=== PATIENT | male | born 1960 | race Caucasian/White ===

== ENCOUNTER 2019-01-27 12:30 | Emergency (ER) | payer OTHER, MEDICAID, SELFPAY ==
[2019-01-27 12:47] VITALS: BP 151/89; PULSE 79; RESP 14; TEMP 36.9; O2SAT 97
[2019-01-27] MEDS: PROPARACAINE 0.5% OPHTH SOL 1 DROPS EYE-RIGHT (12:53)
--- NOTE | 2019-01-27 13:28 | PC.NURSE ---
Two days ago pt was under his house grinding a screw. Pt unsure of what is in his eye but it is painful and red.
[2019-01-27] MEDS: TET,DIPH,PERTUSS(ACELL),VAC/PF 0.5 ML SYRINGE IM (14:14)
--- NOTE | 2019-01-27 14:20 | ED_ITS ---
HPI - Eye Problem <WILLIS Telles - Last Filed: 01/27/19 16:24> General Chief complaint: Eye Problems Stated complaint: something in rt eye, pain Time Seen by Provider: 01/27/19 13:51 Source: patient and family Mode of arrival: ambulatory Limitations: no limitations History of Present Illness HPI Narrative: The patient is a 58-year-old male who presents with his for a chief complaint of pain in his right eye. He states he was cleaning underneath the house several days ago and felt like he got something in his right eye, which he tried to rinse out with his water bottle. He denies any double vision. He states that sometimes he wakes up with pus and drainage. Related Data Previous Rx's Medication Instructions Recorded ciprofloxacin HCl 2 drop EYE-RIGHT Q4H 10 Days #10 ml 01/27/19 Allergies Allergy/AdvReac Type Severity Reaction Status Date / Time No Known Drug Allergies Allergy Verified 01/27/19 12:49 Review of Systems <WILLIS Telles - Last Filed: 01/27/19 16:24> Review of Systems GENERAL: Denies chills, fatigue, malaise, fever, sweats. HEENT: See HPI RESPIRATORY: Denies dyspnea, cough, wheezing, hemoptysis, sputum. CARDIOVASCULAR: Denies chest pain, palpitations, orthopnea, edema, GASTROINTESTINAL: Denies nausea, vomiting, abdominal pain, diarrhea, constipation, melena. : Denies dysuria, frequency, incontinence, hematuria, urinary retention. MUSCULOSKELETAL: denies weakness, joint pain, or bony pain SKIN: Denies rash, skin lesions, or other NEUROLOGIC: Denies weakness, headache, numbness, change in speech, confusion, seizures, incoordination. PSYCHIATRIC: No concerning psychosocial issues. 12 point review of systems is negative except for those stated above PFSH <WILLIS Telles - Last Filed: 01/27/19 16:24> Social History Smoking Status: Never smoker Social History Smoking Status: Never smoker Exam <WILLIS Telles - Last Filed: 01/27/19 16:24> Narrative Exam Narrative: GENERAL: This is a well-nourished, well-developed patient, no acute distress HEAD: Atraumatic. Normocephalic. No temporal or scalp tenderness. EYES: Pupils equal round and reactive. Extraocular motions intact. No scleral icterus. Slight injection noted right sclera. No nystagmus noted bilaterally. fluorescein exam completed with observation of corneal abrasion lateral right aspect of right eye. No obvious foreign bodies. No rust rings. ENT: Nose without bleeding, purulent drainage or septal hematoma. Throat without erythema, tonsillar hypertrophy or exudate. Uvula midline. Airway patent. NECK: Trachea midline. No JVD or lymphadenopathy. Supple, nontender, no meningeal signs. CARDIOVASCULAR: Regular rate and rhythm RESPIRATORY: No cough. No increased respiratory effort. EXTREMITIES: No clubbing, cyanosis, or edema. No joint tenderness, effusion, or edema noted. NEURO: AOx3. SKIN: No rash or erythema. Initial Vital Signs Initial Vital Signs: Vital Signs Temperature 98.5 F 01/27/19 12:47 Pulse Rate 79 01/27/19 12:47 Respiratory Rate 14 01/27/19 12:47 Blood Pressure 151/89 H 01/27/19 12:47 Pulse Oximetry 97 01/27/19 12:47 <Zuleika Browne DO - Last Filed: 01/27/19 18:12> Initial Vital Signs Initial Vital Signs: Vital Signs Temperature 98.5 F 01/27/19 12:47 Pulse Rate 79 01/27/19 12:47 Respiratory Rate 14 01/27/19 12:47 Blood Pressure 151/89 H 01/27/19 12:47 Pulse Oximetry 97 01/27/19 12:47 Course <[place] Telles-BC - Last Filed: 01/27/19 16:24> Orders Ordered: Discontinued Medications Diphtheria/Tetanus/Acell Pertussis (Adacel) 0.5 ml IM .ONCE ONE Stop: 01/27/19 14:09 Last Admin: 01/27/19 14:14 Dose: 0.5 ml Proparacaine HCl (Parcaine 0.5% Ophth Majo) 1 drops EYE-RIGHT NOW ONE Stop: 01/27/19 12:53 Last Admin: 01/27/19 12:53 Dose: 1 drop Proparacaine HCl (Parcaine 0.5% Ophth Majo) 1 drops EYE-RIGHT PRN PRN PRN Reason: Pain, Moderate (4-6) Vital Signs - 8 hr 01/27/19 12:47 01/27/19 14:29 Temperature 98.5 F Pulse Rate 79 88 Respiratory Rate 14 Blood Pressure 151/89 H 132/85 Pulse Oximetry 97 98 <Zuleika Browne DO - Last Filed: 01/27/19 18:12> Orders Ordered: Discontinued Medications Diphtheria/Tetanus/Acell Pertussis (Adacel) 0.5 ml IM .ONCE ONE Stop: 01/27/19 14:09 Last Admin: 01/27/19 14:14 Dose: 0.5 ml Proparacaine HCl (Parcaine 0.5% Ophth Majo) 1 drops EYE-RIGHT NOW ONE Stop: 01/27/19 12:53 Last Admin: 01/27/19 12:53 Dose: 1 drop Proparacaine HCl (Parcaine 0.5% Ophth Majo) 1 drops EYE-RIGHT PRN PRN PRN Reason: Pain, Moderate (4-6) Vital Signs - 8 hr 01/27/19 12:47 01/27/19 14:29 Temperature 98.5 F Pulse Rate 79 88 Respiratory Rate 14 Blood Pressure 151/89 H 132/85 Pulse Oximetry 97 98 MDM - Eye Problem <[place] Telles-BC - Last Filed: 01/27/19 16:24> MDM Narrative Medical decision making narrative: The patient is a 58-year-old male who presents with chief complaint of right eye pain. His visual acuity was within normal limits. Exam revealed a corneal abrasion, for which I placed him on ciprofloxacin ophthalmic drops. I discussed at length following up with his primary care provider for new or worsening symptoms. I discussed at length scott chew back to the emergency department if he has any acute concerns about his vision. Patient no questions or concerns upon discharge. Discharge Plan Departure Patient Disposition: Home Clinical Impression: Corneal abrasion Qualifiers: Encounter type: initial encounter Laterality: right Qualified Code(s): S05.01XA - Injury of conjunctiva and corneal abrasion without foreign body, right eye, initial encounter Discharge Date/Time: 01/27/19 14:30 Interventions: ED Discharge Assessment Last Done: 01/27/19 14:29 Instructions: DI for Corneal Abrasion Activity Restrictions/Additional Instructions: I am starting you on ciprofloxacin eye drops for her corneal abrasion. We also updated your tetanus today. Please monitor for difficulty seeing, spreading redness from her eye or any acute concerns. Please follow up with primary care provider as we discussed. Please come back to the emergency department for any acute concerns including visual problems. Prescriptions: New ciprofloxacin HCl 0.3 % drops 2 drop EYE-RIGHT Q4H 10 Days Qty: 10 RF: 0 <Zuleika Browne DO - Last Filed: 01/27/19 18:12> Cosign ED Attending Jonyature Attestation: I was immediately available in the department for consultation. This documentation has been reviewed and I agree with assessment and plan. Supervised by Zuleika Browne DO
[2019-01-27 14:29] VITALS: BP 132/85; PULSE 88; O2SAT 98
== END 2019-01-27 14:30 | disposition home or self-care (01) ==
PROVIDERS: Emergency Provider Nurse Practitioner Family
DX: S05.01XA Injury of conjunctiva and corneal abrasion without foreign body, right eye, initial encounter (principal); Z23 Encounter for immunization
CPT/HCPCS: 90471; 99283; 90715

== ENCOUNTER 2020-06-07 11:15 | Observation (INO) | payer OTHER, MEDICAID, SELFPAY ==
[2020-06-07] VITALS (15 sets, daily range): BP systolic 114–180; BP diastolic 57–85; PULSE 63–80; RESP 14–18; TEMP 36.4–36.7; O2SAT 96–99; BMI 28.0; BMI 29.5
--- NOTE | 2020-06-07 11:27 | DI.RAD.S_ITS ---
PROCEDURE: XR CHEST 1V INDICATIONS: chest pain TECHNIQUE: One view of the chest was acquired. COMPARISON: None. FINDINGS: Surgical changes and devices: None. Lungs and pleura: Low lung volumes are noted. This causes a crowded appearance to the lung markings and limits evaluation. On this semiupright portable chest examination, no large pneumothorax or large pleural effusions are seen. No focal infiltrates are seen. Mediastinum: The cardiac contours are within normal limits. The aorta demonstrates calcification and tortuosity. Bones and chest wall: No suspicious bony lesions. Age-appropriate bony degenerative changes are seen. Overlying soft tissues appear unremarkable. IMPRESSION: Limited portable chest examination, without a significant cardiopulmonary abnormality identified. Dictated by: Harish Spencer M.D. on 06/07/2020 at 11:14 Approved by: Harish Spencer M.D. on 06/07/2020 at 11:15
[2020-06-07 11:46] LABS: Add Manual Diff / Slide Review NO; Basophils Absolute Auto 0 /uL (0-100); Basophils Percent Auto 0.4 % (0-2); Eosinophils Absolute Auto 200 /uL (0-450); Eosinophils Percent Auto 2.8 % (2-4); Hematocrit 43.5 % (41-53); Hemoglobin 14.7 g/dL (13.5-17.5); Lymphocytes Absolute Auto 2800 /uL (1100-4500); Lymphocytes Percent Auto 37.1 % (25-40); Mean Corpuscular HGB Conc 33.9 % (30-36); Mean Corpuscular Hemoglobin 29.3 PG (26-34); Mean Corpuscular Volume 86.5 fL (80-100); Monocytes Absolute Auto 400 /uL (0-900); Monocytes Percent Auto 5.6 % (3-14); Neutrophils Absolute Auto 4000 /uL (1500-7000); Neutrophils Percent Auto 54.1 % (50-75); Platelet Count 244 X10^3/uL (150-400); Red Blood Cell Count 5.03 X10^6/uL (4.5-5.9); Red Cell Distribution Width 13.7 % (11.6-14.8); White Blood Cell Count 7.5 X10^3/uL (4.5-11.0)
[2020-06-07 11:53] LABS: INR 0.9 (0.9-1.3); Prothrombin Time 10.9 SECONDS (10.1-12.7)
[2020-06-07] MEDS: ASPIRIN 81 MG CHEW TAB 324 MG PO (11:54)
[2020-06-07] MEDS: NITROGLYCERIN 0.4 MG SL TAB SL ×3 (11:55→13:58)
[2020-06-07 11:56] LABS: PTT Partial Thromboplastin Tim 32 SECONDS (26.4-36.2)
[2020-06-07 11:57] LABS: Alanine Aminotransferase 36 IU/L (<50); Albumin 4.3 g/dL (3.5-5.0); Albumin Globulin Ratio 1.3 (1.0-2.8); Alkaline Phosphatase 90 U/L (38-126); Aspartate Aminotransferase 34 IU/L (17-59); BUN Creatinine Ratio 21.5 (6-22); Bilirubin Total 0.4 mg/dL (0.2-1.3); Blood Urea Nitrogen 17 mg/dL (9-20); Calcium 9.3 mg/dL (8.4-10.2); Carbon Dioxide 28 mmol/L (22-32); Chloride 103 mmol/L (98-107); Creatine Kinase 130 U/L (55-170); Estimated Glomerular Filt Rate > 60.0 mL/min (>60); Globulin 3.2 g/dL (1.7-4.1); Glucose 134 mg/dL (80-110); HEMOLYSIS < 15 (0-50); Lipase 58 U/L (23-300); Potassium 4.1 mmol/L (3.4-5.1); Sodium 138 mmol/L (137-145); Total Protein 7.5 g/dL (6.3-8.2)
--- NOTE | 2020-06-07 12:07 | ED_ITS ---
HPI - Chest Pain General Chief Complaint: Chest Pain Stated Complaint: INTERMITTENT CHEST PAIN, WORSENING Time Seen by Provider: 06/07/20 11:24 Source: patient Mode of arrival: Ambulatory Limitations: no limitations History of Present Illness HPI narrative: Patient is a 60-year-old male who presents with chest pain ongoing for about 1 week. He says his it comes and goes he notices it both at rest and with exertion however he has been able to sustain walks with his without any difficulty. Today it has lasted longer than it has previously and seems stronger. He woke up this morning and then started noticing it. It is in the center of his chest does not radiate he denies any shortness of breath with exertion, denies any diaphoresis nausea. No family history of coronary artery disease. He has no known coronary artery disease himself but does not go to doctors and has not been to 1 in years. complaint: chest pain Onset (ago): week(s) Duration: intermittent Onset: during rest and during exertion Pain location: substernal Severity: mild Quality: aching and heaviness Pain radiation: none Relieving factors: nothing Exacerbating factors: nothing Context: recent illness Related Data Home Medications Medication Instructions Recorded Confirmed No Known Home Medications 06/07/20 06/07/20 Allergies Allergy/AdvReac Type Severity Reaction Status Date / Time No Known Drug Allergies Allergy Verified 01/27/19 12:49 Review of Systems Review of Systems Narrative: GENERAL: Denies chills, fatigue, malaise, fever, sweats, travel HEENT: Denies sinus pain, ear pain, sore throat, difficulty swallowing, neck pain RESPIRATORY: Denies dyspnea, cough, wheezing, hemoptysis, sputum. CARDIOVASCULAR: See HPI GASTROINTESTINAL: Denies nausea, vomiting, abdominal pain, diarrhea, constipation, melena. : Denies dysuria, frequency, incontinence, hematuria, urinary retention, flank pain. MUSCULOSKELETAL: Denies weakness, joint pain, or bony pain SKIN: No rash, no erythema, no pruritus NEUROLOGIC: Denies weakness, dizziness, headache, numbness, change in speech, confusion PSYCHIATRIC: No concerning psychosocial issues. 12 point review of systems is negative except for those stated above and HPI Patient History Medical History (Updated 06/07/20 @ 15:00 by Cydney Leong MD) Hypertension (Acute) Patient denies medical problems (Acute) Family History (Updated 06/07/20 @ 15:00 by Cydney Leong MD) Father Cancer Social History household members: significant other Smoking Status: Never smoker alcohol intake: never Smoking Status: Never smoker alcohol intake frequency: 0-2 drinks per day Substance Use Type: marijuana Exam Initial Vital Signs Initial Vital Signs: Vital Signs Temperature 98.1 F 06/07/20 11:24 Pulse Rate 80 06/07/20 11:24 Respiratory Rate 18 06/07/20 11:24 Blood Pressure 180/81 H 06/07/20 11:24 Pulse Oximetry 97 06/07/20 11:24 GENERAL: Well-appearing, well-nourished and in no acute distress. HEENT: Head atraumatic,EOMI, pupils reactive, face symmetric, moist mucous membranes CARDIOVASCULAR: Regular rate and rhythm without murmurs, rubs or gallops. RESPIRATORY: Breath sounds equal bilaterally, no wheezes rales or rhonchi. ABDOMEN: Soft, nontender. Normoactive bowel sounds all 4 quadrants. No guarding or rebound. EXTREMITIES: Normal range of motion, no clubbing or edema. Neurovascularly intact NEUROLOGICAL: Alert and oriented x4.Normal gait and speech. Cranial nerves II through XII grossly intact. SKIN: Warm, dry, no laceration, no petechiae, no rashes or lesions. Scores HEART Score Heart Score history: Moderately Suspicious Heart Score EKG: Normal Heart Score Age: 45-64 years old Heart Score risk factors: No known risk factors Heart Score troponin: < or = to normal limit Heart Score Total: 2 Course Orders Ordered: ED Orders 06/07/20 11:23 EKG-12 Lead Stat 06/07/20 11:27 XR chest 1V Stat 06/07/20 11:33 Complete Blood Count AUTO DIFF Stat Comprehensive Metabolic Panel Stat Lipase Stat Partial Thromboplastin Time Stat Prothrombin Time INR Stat Troponin & CK Cardiac Panel Stat Acetaminophen (Tylenol) 650 mg PO Q6HR PRN PRN Reason: Fever/Mild Pain (1-3) Al Hydrox/Mg Hydrox/Simethicone (Maalox Plus) 30 ml PO Q6HR PRN PRN Reason: Dyspepsia Aspirin (Aspirin Ec) 325 mg PO DAILY PREETI Calcium Carbonate (Tums) 1,000 mg PO Q4HR PRN PRN Reason: Dyspepsia Enoxaparin Sodium (Lovenox) 40 mg SUBCUT DAILY REPLACED BY [facility] Last Admin: 06/07/20 15:37 Dose: Not Given Documented by: CELINA Hydralazine HCl (Apresoline) 10 mg IV Q6HR PRN PRN Reason: Hypertension Sodium Chloride (Normal Saline 0.45%) 1,000 mls @ 100 mls/hr IV CONT REPLACED BY [facility] Last Admin: 06/07/20 15:37 Dose: 100 mls/hr Documented by: CELINA Ibuprofen (Advil) 600 mg PO Q6HR PRN PRN Reason: Fever/Mild Pain (1-3) Last Admin: 06/07/20 17:32 Dose: 600 mg Documented by: CELINA Morphine Sulfate (Morphine) 2 mg IV Q4HR PRN PRN Reason: Pain, Moderate (4-6) Naloxone HCl (Narcan) 0.2 mg IV Q2MIN PRN PRN Reason: Opiate Reversal Nitroglycerin (Nitrostat) 0.4 mg SL [id number] PRN PRN Reason: Chest Pain Ondansetron HCl (Zofran) 4 mg IV Q8HR PRN PRN Reason: Nausea And Vomiting Pantoprazole Sodium (Protonix) 20 mg PO 0600 REPLACED BY [facility] Discontinued Medications Aspirin (Aspirin Chew) 324 mg PO NOW ONE Stop: 06/07/20 11:51 Last Admin: 06/07/20 11:54 Dose: 324 mg Documented by: BRANDON Nitroglycerin (Nitrostat) 0.4 mg SL NOW ONE Stop: 06/07/20 11:51 Last Admin: 06/07/20 11:55 Dose: 0.4 mg Documented by: BRANDON Nitroglycerin (Nitrostat) 0.4 mg SL NOW ONE Stop: 06/07/20 12:03 Last Admin: 06/07/20 12:03 Dose: 0.4 mg Documented by: BRANDON Nitroglycerin (Nitrostat) 0.4 mg SL NOW ONE Stop: 06/07/20 13:58 Last Admin: 06/07/20 13:58 Dose: 0.4 mg Documented by: BRANDON Nitroglycerin (Nitro-Bid) 2 inch TOP NOW ONE Stop: 06/07/20 14:49 Last Admin: 06/07/20 15:54 Dose: 2 inch Documented by: CELINA Vital Signs Vital signs: Vital Signs - 8 hr 06/07/20 11:24 06/07/20 11:27 06/07/20 11:30 Temperature 98.1 F Pulse Rate 80 73 74 Respiratory Rate 18 17 18 Blood Pressure 180/81 H 154/85 H Pulse Oximetry 97 99 98 06/07/20 11:55 06/07/20 12:00 06/07/20 12:03 Temperature Pulse Rate 77 79 73 Respiratory Rate 17 Blood Pressure 154/85 H 137/71 137/71 Pulse Oximetry 96 06/07/20 12:30 06/07/20 13:00 06/07/20 13:30 Temperature Pulse Rate 68 66 75 Respiratory Rate 14 15 18 Blood Pressure 136/75 131/76 126/66 Pulse Oximetry 98 97 96 MDM - Chest Pain Lab Data Attestation: I reviewed the patient's lab results. Result diagrams: 06/07/20 11:33 06/07/20 11:33 Labs: Lab Results 06/07/20 06/07/20 06/07/20 Range/Units 11:33 11:33 11:33 WBC 7.5 (4.5-11.0) X10^3/uL RBC 5.03 (4.5-5.9) X10^6/uL Hgb 14.7 (13.5-17.5) g/dL Hct 43.5 (41-53) % MCV 86.5 (80-100) fL MCH 29.3 (26-34) PG MCHC 33.9 (30-36) % RDW 13.7 (11.6-14.8) % Plt Count 244 (150-400) X10^3/uL Neut % (Auto) 54.1 (50-75) % Lymph % (Auto) 37.1 (25-40) % [place] % (Auto) 5.6 (3-14) % Eos % (Auto) 2.8 (2-4) % Baso % (Auto) 0.4 (0-2) % Neut # (Auto) 4000 (0298-4345) /uL Lymph # (Auto) 2800 (2064-3978) /uL [place] # (Auto) 400 (0-900) /uL Eos # (Auto) 200 (0-450) /uL Baso # (Auto) 0 (0-100) /uL PT 10.9 (10.1-12.7) SECONDS INR 0.9 (0.9-1.3) APTT 32 (26.4-36.2) SECONDS D-Dimer (<230) ng/mL Sodium 138 (137-145) mmol/L Potassium 4.1 (3.4-5.1) mmol/L Chloride 103 (98-107) mmol/L Carbon Dioxide 28 (22-32) mmol/L BUN 17 (9-20) mg/dL Creatinine 0.79 (0.66-1.25) mg/dL Estimated GFR > 60.0 (>60) mL/min BUN/Creatinine Ratio 21.5 (6-22) Glucose 134 H (80-110) mg/dL Calcium 9.3 (8.4-10.2) mg/dL Total Bilirubin 0.4 (0.2-1.3) mg/dL AST 34 (17-59) IU/L ALT 36 (<50) IU/L Alkaline Phosphatase 90 (38-126) U/L Total Creatine Kinase 130 (55-170) U/L CK-MB (CK-2) 2.32 (<2.37) ng/mL CK-MB (CK-2) Rel Index 1.8 (1.5-5.0) % Troponin I < 0.012 (0.01-0.034) ng/mL Total Protein 7.5 (6.3-8.2) g/dL Albumin 4.3 (3.5-5.0) g/dL Globulin 3.2 (1.7-4.1) g/dL Albumin/Globulin Ratio 1.3 (1.0-2.8) Triglycerides (35-150) mg/dL Cholesterol (140-199) mg/dL LDL Cholesterol, Calc (<100) mg/dL HDL Cholesterol (40-60) mg/dL Lipase 58 (23-300) U/L COVID-19 PCR (Negative) 06/07/20 06/07/20 06/07/20 Range/Units 11:33 11:33 13:34 WBC (4.5-11.0) X10^3/uL RBC (4.5-5.9) X10^6/uL Hgb (13.5-17.5) g/dL Hct (41-53) % MCV (80-100) fL MCH (26-34) PG MCHC (30-36) % RDW (11.6-14.8) % Plt Count (150-400) X10^3/uL Neut % (Auto) (50-75) % Lymph % (Auto) (25-40) % [place] % (Auto) (3-14) % Eos % (Auto) (2-4) % Baso % (Auto) (0-2) % Neut # (Auto) (8452-8842) /uL Lymph # (Auto) (8793-3208) /uL [place] # (Auto) (0-900) /uL Eos # (Auto) (0-450) /uL Baso # (Auto) (0-100) /uL PT (10.1-12.7) SECONDS INR (0.9-1.3) APTT (26.4-36.2) SECONDS D-Dimer < 200 (<230) ng/mL Sodium (137-145) mmol/L Potassium (3.4-5.1) mmol/L Chloride (98-107) mmol/L Carbon Dioxide (22-32) mmol/L BUN (9-20) mg/dL Creatinine (0.66-1.25) mg/dL Estimated GFR (>60) mL/min BUN/Creatinine Ratio (6-22) Glucose (80-110) mg/dL Calcium (8.4-10.2) mg/dL Total Bilirubin (0.2-1.3) mg/dL AST (17-59) IU/L ALT (<50) IU/L Alkaline Phosphatase (38-126) U/L Total Creatine Kinase (55-170) U/L CK-MB (CK-2) (<2.37) ng/mL CK-MB (CK-2) Rel Index (1.5-5.0) % Troponin I (0.01-0.034) ng/mL Total Protein (6.3-8.2) g/dL Albumin (3.5-5.0) g/dL Globulin (1.7-4.1) g/dL Albumin/Globulin Ratio (1.0-2.8) Triglycerides 181 H (35-150) mg/dL Cholesterol 208 H (140-199) mg/dL LDL Cholesterol, Calc 135 H (<100) mg/dL HDL Cholesterol 37 L (40-60) mg/dL Lipase (23-300) U/L COVID-19 PCR Negative (Negative) Imaging Data Chest x-ray: Radiologist's Impression: PROCEDURE: XR CHEST 1V INDICATIONS: chest pain TECHNIQUE: One view of the chest was acquired. COMPARISON: None. FINDINGS: Surgical changes and devices: None. Lungs and pleura: Low lung volumes are noted. This causes a crowded appearance to the lung markings and limits evaluation. On this semiupright portable chest examination, no large pneumothorax or large pleural effusions are seen. No focal infiltrates are seen. Mediastinum: The cardiac contours are within normal limits. The aorta demonstrates calcification and tortuosity. Bones and chest wall: No suspicious bony lesions. Age-appropriate bony degenerative changes are seen. Overlying soft tissues appear unremarkable. IMPRESSION: Limited portable chest examination, without a significant cardiopulmonary abnormality identified. Dictated by: Harish Spencer M.D. on 06/07/2020 at 11:14 Approved by: Harish Spencer M.D. on 06/07/2020 at 11:15 ECG Data Attestation: I personally reviewed and interpreted this ECG as follows: Prior ECG tracings: not available for review Interpretation: EKG 1. Normal sinus rhythm rate 70 p.r. interval 175 QRS [address] changes or T-wave inversion noted in lead 3 only no priors to compare EKG 2. Sinus rhythm rate [address] changes T-wave inversion in lead 3 remains unchanged MDM Narrative Medical decision making narrative: Patient's symptoms are concerning he had 2 nitroglycerin which relieved his pain completely. His symptoms are much worse today than what they have been. He does not have a primary care provider to s tony close outpatient follow-up with. Discussed case with Dr. leong will keep patient in observation and schedule a stress test Tuesday. Discharge Plan Departure Patient Disposition: Admitted as Observation Clinical Impression: Chest pain Qualifiers: Chest pain type: unspecified Qualified Code(s): R07.9 - Chest pain, unspecified Discharge Date/Time: 06/07/20 14:05 Admit Date/Time: 06/07/20 13:44 Admit Provider: Cydney Leong
[2020-06-07 12:09] LABS: Troponin I < 0.012 ng/mL (0.01-0.034)
[2020-06-07 12:12] LABS: CKMB % Relative Index 1.8 % (1.5-5.0); Creatine Kinase MB 2.32 ng/mL (<2.37)
[2020-06-07 14:29] LABS: COVID19 -Nasal RAPID Negative (Negative)
--- NOTE | 2020-06-07 14:52 | DI.CT.S_ITS ---
PROCEDURE: CT ANGIO CHEST PE PROTOCOL INDICATIONS: chest pain TECHNIQUE: After the administration of intravenous contrast, 2 mm thick sections acquired from the pulmonary apices to the posterior costophrenic angles. 3-dimensional maximum intensity projection (MIP) coronal and sagittal reformats were then acquired through the thorax. For radiation dose reduction, the following was used: automated exposure control, adjustment of mA and/or kV according to patient size. COMPARISON: None. FINDINGS: Image quality: Excellent. Pulmonary arteries: Pulmonary arteries are normal in size, and demonstrate no intraluminal filling defects to suggest central pulmonary embolism. Lungs and pleura: Submaximal inspiration results in vascular crowding and patchy ground-glass opacities. No focal pulmonary consolidation. No pleural effusions or pneumothorax. Central and peripheral airways are patent. Mediastinum: Heart size is normal, without pericardial effusion. Advanced coronary artery calcifications. No mediastinal or hilar adenopathy. Thoracic aorta is normal in caliber and enhancement. Esophagus is normal in caliber, without hiatal hernia. Bones and chest wall: No suspicious bony lesions. Ribs and thoracic spine appear intact throughout. Thyroid gland is unremarkable. No axillary or supraclavicular adenopathy. Abdomen: Visualized upper abdominal solid organs appear normal in the early arterial phase of enhancement. IMPRESSION: 1. No evidence acute pulmonary emboli. 2. Normal caliber aorta without dissection. 3. Advanced coronary artery atherosclerotic calcifications. Dictated by: Kirk Cerrato M.D. on 06/07/2020 at 15:34 Approved by: Kirk Cerrato M.D. on 06/07/2020 at 15:37
--- NOTE | 2020-06-07 14:54 | DI.ECHO.S_ITS ---
[place] [facility] +---------+ : : [address] : : : : [id number] : : : : Phone: [phone]+ Echocardiogram Report + + :Name: ELVIRA GRIFFIN Study Date: 06/08/2020 Height: 69 in : :[facility] Weight: 202 lb : : Gender: Male BSA: 2.1 m2 : :: 1960 Age: 60 yrs BP: 127/77 mmHg: :Reason For Study: Chest pain : :Ordering Physician: Finn : :Hospitalist Performed By: Manju Cordova : :Referring: ALINE BONILLA : + + Interpretation Summary The left ventricle is normal in size. The ejection fraction is estimated to be 60-65%. The right ventricle is normal in size and function. There is mild mitral regurgitation. The IVC is of normal diameter and collapses greater than 50% with a sniff. This suggests a low right atrial pressure of 3 mm Hg. Procedure: A two-dimensional transthoracic echocardiogram with color flow and Doppler was performed. The study quality was technically adequate. There is no prior echocardiogram noted for this patient. The patient was in sinus rhythm with heart rates between 60-75 bpm during the exam. Left Ventricle: Proximal septal thickening is noted. The left ventricle is normal in size. There is no echo evidence for significant left ventricular outflow tract obstruction. There is no thrombus. The ejection fraction is estimated to be 60-65%. Left ventricular global longitudinal strain average is normal at 22% (normal is more negative than -20%). There are no focal wall motion abnormalities. MV E/A: 1.1 Med Peak E' Jacek: 6.3 cm/sec E/E' med: 14.1. Right Ventricle: The right ventricle is normal in size and function. Atria: The left atrium is mildly dilated. Right atrial size is normal. There is no Doppler evidence for an interatrial shunt. Mitral Valve: There is mild mitral annular calcification. There is mild mitral regurgitation. Aortic Valve: The aortic valve is trileaflet. The aortic valve opens well. There is no aortic valve stenosis. No aortic regurgitation is present. Tricuspid Valve: The tricuspid valve is normal in structure and function. Pulmonary artery pressures cannot be estimated because of the lack of a measurable TR jet velocity but the IVC suggests a CVP of around 3 mmHg. There is trace tricuspid regurgitation. Pulmonic Valve: The pulmonic valve is not well seen, but is grossly normal. There is mild pulmonic regurgitation. Great Vessels: The aortic root is normal size. The ascending aorta is mildly enlarged. The IVC is of normal diameter and collapses greater than 50% with a sniff. This suggests a low right atrial pressure of 3 mm Hg. Pericardium/ Pleura There is no pericardial effusion. There is no pleural effusion. MMode/2D Measurements & Calculations LVIDd: 4.1 cm LVOT diam: 2.1 cm LVIDs: 2.7 cm Ao root diam: 3.1 cm FS: 36.1 % asc Aorta Diam: 3.4 cm EPSS: 1.5 cm Ao Arch Diam (Prox Trans): 2.9 cm IVSd: 0.86 cm LVPWd: 0.88 cm LV mcgraw. diameter/BSA (cm/m^2): 2.0 LV sys. diameter/BSA (cm/m^2): 1.3 LA A2 area: 23.2 cm2 RA long axis: 5.0 cm LA A4 area: 20.8 cm2 RA area: 15.6 cm2 LA length (vol): 5.0 cm RA vol: 41.6 ml LA vol: 82.2 ml RA : 20.0 ml/m2 LA vol index: 39.6 ml/m2 IVC diam: 1.5 cm RVD1 (basal): 3.2 cm TAPSE: 2.5 cm Doppler Measurements & Calculations Ao V2 max: 133.9 cm/sec LVOT Max Jacek: 97.3 cm/sec Ao V2 mean: 87.5 cm/sec LV V1 max P.8 mmHg Ao max P.2 mmHg LV V1 VTI: 23.1 cm Ao mean P.6 mmHg VU(I,D): 2.6 cm2 Ao V2 VTI: 30.0 cm VU(V,D): 2.4 cm2 sev ratio: 0.77 VU indexed to BSA (cm^2/m^2): 1.2 MV E max jacek: 88.7 cm/sec PA V2 max: 92.6 cm/sec MV A max jacek: 80.3 cm/sec PA V2 mean: 62.1 cm/sec MV E/A: 1.1 PA mean P.8 mmHg Med Peak E' Jacek: 6.3 cm/sec PA pr(Accel): 29.3 mmHg E/E' med: 14.1 Lat Peak E' Jacek: 9.2 cm/sec E/E' lat: 9.7 E/e' average: 11.9 MV dec time: 0.25 sec [facility] 77.0 ml Reading Physician:02:35 PM
--- NOTE | 2020-06-07 14:54 | PC.NURSE ---
Day Shift Note/Admit Pt to room 222 from ER at 1420. Walker self from stretcher to bed without issue. Alert and oriented x3. Reports chest pain to sternum 5/10, received nitro in ER. Reports pain as aching/tight and denies any radiation. Denies SOB. SpO2 97%. Dr. Leong notified and at bedside, EKG done and given to Dr. Leong. On tele NSR in the 60s. Declines to lock up any valuables. Oriented to call light/bed/tv controls. Call light within reach.
--- NOTE | 2020-06-07 14:55 | PM.HP.1 ---
History of Present Illness History of Present Illness Date Patient Seen: 06/07/20 Chief complaint: INTERMITTENT CHEST PAIN, WORSENING Narrative: Patient is a 60-year-old male with a history of hypertension which is untreated who was in his usual state of health until a week ago when he developed substernal chest pain. Patient states he was visiting a friend and developed substernal chest pain that felt like he had been hit in the chest. The pain lasted 20 minutes. It did not radiate. It was 7/10 in intensity and not associated with shortness of breath nausea vomiting or diaphoresis. The pain then resolved. Patient states 3 days later he developed recurrent chest pain which again resolved after lying down. It does not appear to be related to exertion. He again was up today and developed substernal pain. It was severe. He presented to the emergency room for evaluation. Again there were no associated symptoms. The patient has a history of hypertension for which she is not on treatment. He has no history of hyperlipidemia, he does not smoke cigarettes and has no family history. He does report a history of heartburn and states this is different from his usual heartburn. He has not found any factors that alleviate or make it better. The patient was evaluated in the emergency room and his EKG revealed sinus rhythm with a left anterior hemiblock as well as a right bundle stalin block. There was no appreciable acute STT wave abnormalities. His initial set of cardiac enzymes have been negative. Patient arrived to the floor and developed recurrent pain again. Repeat EKG was unchanged. Patient does report that sublingual nitro improves his pain. Patient is admitted to the hospital at this time for further evaluation of chest pain. Patient History Medical History (Updated 06/07/20 @ 15:00 by Cydney Leong MD) Hypertension (Acute) Patient denies medical problems (Acute) Family & Social History Family History (Updated 06/07/20 @ 15:00 by Cydney Leong MD) Father Cancer Social History: household members significant other Safety & Behavioral: Feels Safe in Current Yes Environment Been Physically Hurt or No Threatened By a Person Suicidal Ideation Description None Tobacco & Substance use: Smoking Status Never smoker alcohol intake never alcohol intake frequency 0-2 drinks per day Substance Use Type marijuana Meds Home Medications and Allergies Home Medications Medication Instructions Recorded Confirmed Type No Known Home Medications 06/07/20 06/07/20 History Allergies Allergy/AdvReac Type Severity Reaction Status Date / Time No Known Drug Allergies Allergy Verified 01/27/19 12:49 Review of Systems Review of Systems ROS: Yes All systems reviewed with the patient and are negative except as otherwise documented Exam Vital Signs (past 8 hours): - 06/07/20 11:24 06/07/20 11:27 06/07/20 11:30 Temperature 98.1 F Pulse Rate 80 73 74 Respiratory Rate 18 17 18 Blood Pressure 180/81 H 154/85 H Pulse Oximetry 97 99 98 06/07/20 11:55 06/07/20 12:00 06/07/20 12:03 Temperature Pulse Rate 77 79 73 Respiratory Rate 17 Blood Pressure 154/85 H 137/71 137/71 Pulse Oximetry 96 06/07/20 12:30 06/07/20 13:00 06/07/20 13:30 Temperature Pulse Rate 68 66 75 Respiratory Rate 14 15 18 Blood Pressure 136/75 131/76 126/66 Pulse Oximetry 98 97 96 06/07/20 13:58 06/07/20 14:03 Temperature Pulse Rate 77 77 Respiratory Rate 14 Blood Pressure 126/66 114/57 L Pulse Oximetry 97 Oxygen Delivery Method Room Air Narrative Exam Narrative: Pleasant male resting comfortably in no obvious distress HEENT: Normocephalic atraumatic, extraocular muscles are intact, oropharynx is clear, neck is supple, without adenopathy, no thyromegaly noted Lungs: Clear to auscultation Cardiac exam: Regular rate and rhythm normal S1-S2 with a 2/6 systolic ejection murmur Abdomen: Soft nontender nondistended without appreciable hepatosplenomegaly no palpable mass. No board-like rigidity Extremities: No edema Neuro exam: Nonfocal Skin exam: No lesion Psychiatric exam: Patient is awake alert and appropriate, answers questions accordingly, no delusions or hallucinations noted Objective Labs Result Diagrams: 06/07/20 11:33 06/07/20 11:33 Labs: Laboratory Results - last 24 hr 06/07/20 06/07/20 06/07/20 11:33 11:33 11:33 WBC 7.5 RBC 5.03 Hgb 14.7 Hct 43.5 MCV 86.5 MCH 29.3 MCHC 33.9 RDW 13.7 Plt Count 244 Neut % (Auto) 54.1 Lymph % (Auto) 37.1 [place] % (Auto) 5.6 Eos % (Auto) 2.8 Baso % (Auto) 0.4 Neut # (Auto) 4000 Lymph # (Auto) 2800 [place] # (Auto) 400 Eos # (Auto) 200 Baso # (Auto) 0 PT 10.9 INR 0.9 APTT 32 Sodium 138 Potassium 4.1 Chloride 103 Carbon Dioxide 28 BUN 17 Creatinine 0.79 Estimated GFR > 60.0 BUN/Creatinine Ratio 21.5 Glucose 134 H Calcium 9.3 Total Bilirubin 0.4 AST 34 ALT 36 Alkaline Phosphatase 90 Total Creatine Kinase 130 CK-MB (CK-2) 2.32 CK-MB (CK-2) Rel Index 1.8 Troponin I < 0.012 Total Protein 7.5 Albumin 4.3 Globulin 3.2 Albumin/Globulin Ratio 1.3 Lipase 58 COVID-19 PCR 06/07/20 13:34 WBC RBC Hgb Hct MCV MCH MCHC RDW Plt Count Neut % (Auto) Lymph % (Auto) [place] % (Auto) Eos % (Auto) Baso % (Auto) Neut # (Auto) Lymph # (Auto) [place] # (Auto) Eos # (Auto) Baso # (Auto) PT INR APTT Sodium Potassium Chloride Carbon Dioxide BUN Creatinine Estimated GFR BUN/Creatinine Ratio Glucose Calcium Total Bilirubin AST ALT Alkaline Phosphatase Total Creatine Kinase CK-MB (CK-2) CK-MB (CK-2) Rel Index Troponin I Total Protein Albumin Globulin Albumin/Globulin Ratio Lipase COVID-19 PCR Negative Assessment & Plan Assessment & Plan narrative: 1. 60-year-old male with a history of hypertension admitted to the hospital with chest pain -initial cardiac enzymes are negative -initial EKG reveals right bundle stalin block, left anterior hemiblock but no acute ST T wave abnormality -chest x-ray is negative -given persistent pain will obtain a D-dimer and CT angio of the chest -will obtain 2D echo to evaluate valvular function -will continue serial enzymes with anticipation of stress testing on Tuesday -will start PPI -continue aspirin, and DVT prophylaxis -will start nitropaste is at provided some relief, add IV morphine for pain as well -will obtain a fasting lipid profile 2. Hypertension -currently untreated -blood pressure improved with nitro -consider beta-angie high after treadmill -will utilize IV hydralazine as needed as needed Patient is admitted under observation, he is a full code will note that his record accordingly Quality VTE Deep Vein Thrombosis/Pulmonary Embolism Present on Admission: No
[2020-06-07 15:08] LABS: D Dimer < 200 ng/mL (<230)
[2020-06-07] MEDS: ENOXAPARIN 40 MG/0.4 ML SYRINGE SUBCUT (15:37)
[2020-06-07] MEDS: SODIUM CHLORIDE 0.45% 1,000 ML 100 ML IV (15:37)
[2020-06-07] MEDS: NITROGLYCERIN OINT 1 INCH/GM OINT...G. 2 INCH TOP (15:54)
[2020-06-07 17:01] LABS: Cholesterol 208 mg/dL (140-199); HDL Cholesterol 37 mg/dL (40-60); LDL Cholesterol Calculated 135 mg/dL (<100); Triglycerides 181 mg/dL (35-150)
--- NOTE | 2020-06-07 17:27 | PC.NURSE ---
Addendum entered by Mariela Aranda R.N. 06/07/20 23:59: 2300 Nitropaste removed from pt's right anterior chest as per order. Discussed with pt will monitor if pain returns. Addendum entered by Mariela Aranda R.N. 06/07/20 21:07: Informed CADY Espinoza pt refused lovenox. Also consulted with CADY Espinoza re placement (@ 1600)/removal of nitropaste as per Dr. Leong. Orders to remove @ 2300. Pt's S.O. inquires re heart healthy diet. These modifications were discussed with S.O. Addendum entered by Mariela Aranda R.N. 06/07/20 20:06: Pt reports remains chest pain free even during and after ambulation to bathroom and returned to bed. BL calf scd's replaced. IV fluids infusing without difficulty to right ac site. Addendum entered by Mariela Aranda R.N. 06/07/20 17:33: Mostly sleeping but rouses easily to voice. Currently denies chest pain. Ibuprofen administered to monitor for sustained relief. Original Note: Pt to CT scan via wheelchair @ beginning of shift. CT completed. Returned to room 222 and pt returned to monitoring manager. Pt refuses lovenox injection even though pt and pt's S.O who is present in room were educated on rationale for medication. BL calf scd's placed with explanation for rationale. Pt reports chest pain 5/10 and rubs sternum. Nitropaste as ordered applied to pt's right anterior chest. Taking oral fluids and foods well. Continuous pulse oximeter in place.
[2020-06-07] MEDS: IBUPROFEN 600 MG TABLET PO (17:32)
[2020-06-08 00:05] VITALS: BP 127/77; PULSE 64; RESP 18; TEMP 36.6; O2SAT 98
[2020-06-08] MEDS: SODIUM CHLORIDE 0.45% 1,000 ML 100 ML IV (01:43)
[2020-06-08 05:07] VITALS: BP 138/73; PULSE 69; RESP 18; TEMP 36.4; O2SAT 98
[2020-06-08 05:33] LABS: Add Manual Diff / Slide Review NO; Basophils Absolute Auto 0 /uL (0-100); Basophils Percent Auto 0.2 % (0-2); Eosinophils Absolute Auto 200 /uL (0-450); Eosinophils Percent Auto 3.1 % (2-4); Hematocrit 42.6 % (41-53); Hemoglobin 14.4 g/dL (13.5-17.5); Lymphocytes Absolute Auto 2600 /uL (1100-4500); Lymphocytes Percent Auto 34.2 % (25-40); Mean Corpuscular HGB Conc 33.8 % (30-36); Mean Corpuscular Hemoglobin 29.1 PG (26-34); Mean Corpuscular Volume 86.2 fL (80-100); Monocytes Absolute Auto 600 /uL (0-900); Monocytes Percent Auto 7.4 % (3-14); Neutrophils Absolute Auto 4200 /uL (1500-7000); Neutrophils Percent Auto 55.1 % (50-75); Platelet Count 201 X10^3/uL (150-400); Red Blood Cell Count 4.94 X10^6/uL (4.5-5.9); Red Cell Distribution Width 13.4 % (11.6-14.8); White Blood Cell Count 7.6 X10^3/uL (4.5-11.0)
[2020-06-08 05:56] LABS: BUN Creatinine Ratio 17.3 (6-22); Blood Urea Nitrogen 13 mg/dL (9-20); Calcium 8.7 mg/dL (8.4-10.2); Carbon Dioxide 28 mmol/L (22-32); Chloride 104 mmol/L (98-107); Estimated Glomerular Filt Rate > 60.0 mL/min (>60); Glucose 106 mg/dL (80-110); HEMOLYSIS < 15 (0-50); Potassium 4.1 mmol/L (3.4-5.1); Sodium 135 mmol/L (137-145)
[2020-06-08 06:05] LABS: Troponin I < 0.012 ng/mL (0.01-0.034)
[2020-06-08] MEDS: PANTOPRAZOLE 20 MG TABLET PO (06:21)
[2020-06-08 08:00] VITALS: BP 133/68; PULSE 83; RESP 16; TEMP 36.4; O2SAT 98
[2020-06-08 08:58] VITALS: BP 133/68
[2020-06-08] MEDS: ASPIRIN EC 325 MG TABLET PO (08:58)
[2020-06-08] MEDS: ENOXAPARIN 40 MG/0.4 ML SYRINGE SUBCUT (08:58)
[2020-06-08] MEDS: NITROGLYCERIN OINT 1 INCH/GM OINT...G. 1.5 INCH TOP (08:58)
--- NOTE | 2020-06-08 09:02 | CM.DPC ---
Addendum entered by Christine Ly R.N. 06/08/20 12:38: Met briefly with patient in his room, Toyin, life partner, was also at bedside. Gave him phone numbers of clinics in [place] area. Also, encouraged him to call [facility] as other option, for they can give him a list of providers that accept his insurance, as an alternative. Original Note: DCP: Case received, EMR reviewed and met with patient. Introduced self and role. Was able to obtain information from patient regarding his baseline activity status and health status prior to admission. DCP assessment completed with information currently available. Patient is a 60 year old male who admitted yesterday afternoon to the care of the hospitalist team. PCP: None. Payer: confirmed: [facility] /Medicaid. Patient came to the hospital via private vehicle secondary to having chest pain. According to notes, he had been having pain for approximately a week. Patient has no primary care provider. He is going to have an echo today, and a stress test tomorrow. Met with patient in his room. He was sitting up in bed, alert and oriented. He resides in [place] with his significant other, Toyin. His mother, Tracey, also lives in [place]. Patient is independent at baseline. He has no current provider. He stated, he has been pretty healthy, and has not needed to see anyone recently. He mentioned seeing a Dr. Bull at one time, but is no longer in this practice. Discussed some resources, depending upon if clinics accept his insurance. Mentioned [facility] by [facility], as well as [facility], since patient will need some follow up with a provider. let him know that he can be provided a list at discharge. P: DCP to continue to follow. Will also discuss at team rounds. Patient should be able to go home when he is medically stable, and after testing is complete. Christine Ly RN/Garage Laborer
--- NOTE | 2020-06-08 09:09 | PC.NURSE ---
Addendum entered by Akhil Munguia R.N. 06/08/20 10:10: ECHO IN PROGRESS Original Note: PATIENT DENIES CHEST PAIN, STATES FEELS NORMAL. NO NAUSEA, NO HEADACHE. WANTS TO GO HOME AFTER HIS ECHO TODAY.
[2020-06-08 12:00] VITALS: BP 124/80; PULSE 72; RESP 17; TEMP 36.8; O2SAT 100
--- NOTE | 2020-06-08 13:19 | PM.PN.1 ---
Subjective Subjective Date Patient Seen: 06/08/20 Interval history: the patient is a 60-year-old male who was admitted to the hospital for chest pain. His chest pain was responsive to nitro. Since hospitalization he has had no further episodes of chest pain. Patient did have a CT angio which was negative for pulmonary embolus or aneurysm. He is awaiting stress test which is ordered for tomorrow morning. Patient does have cardiac risk factors to include hypertension and hyperlipidemia. His cardiac enzymes and EKG have been unremarkable thus far. Exam Vital Signs (past 8 hours): - 06/08/20 08:00 06/08/20 08:58 06/08/20 12:00 Temperature 97.6 F 98.2 F Pulse Rate 83 72 Respiratory Rate 16 17 Blood Pressure 133/68 133/68 124/80 Pulse Oximetry 98 100 Oxygen Delivery Method Room Air Oxygen Flow Rate 0 Narrative Exam Narrative: Pleasant gentleman in no acute distress lungs: Clear to auscultation cardiac exam: Regular rate and rhythm normal S1-S2 abdomen: Soft nontender nondistended extremities: No edema Objective Labs Result Diagrams: 06/08/20 05:10 06/08/20 05:10 Labs: Laboratory Results - last 24 hr 06/07/20 06/07/20 06/07/20 11:33 11:33 13:34 WBC RBC Hgb Hct MCV MCH MCHC RDW Plt Count Neut % (Auto) Lymph % (Auto) [place] % (Auto) Eos % (Auto) Baso % (Auto) Neut # (Auto) Lymph # (Auto) [place] # (Auto) Eos # (Auto) Baso # (Auto) D-Dimer < 200 Sodium Potassium Chloride Carbon Dioxide BUN Creatinine Estimated GFR BUN/Creatinine Ratio Glucose Calcium Troponin I Triglycerides 181 H Cholesterol 208 H LDL Cholesterol, Calc 135 H HDL Cholesterol 37 L COVID-19 PCR Negative 06/08/20 06/08/20 05:10 05:10 WBC 7.6 RBC 4.94 Hgb 14.4 Hct 42.6 MCV 86.2 MCH 29.1 MCHC 33.8 RDW 13.4 Plt Count 201 Neut % (Auto) 55.1 Lymph % (Auto) 34.2 [place] % (Auto) 7.4 Eos % (Auto) 3.1 Baso % (Auto) 0.2 Neut # (Auto) 4200 Lymph # (Auto) 2600 [place] # (Auto) 600 Eos # (Auto) 200 Baso # (Auto) 0 D-Dimer Sodium 135 L Potassium 4.1 Chloride 104 Carbon Dioxide 28 BUN 13 Creatinine 0.75 Estimated GFR > 60.0 BUN/Creatinine Ratio 17.3 Glucose 106 Calcium 8.7 Troponin I < 0.012 Triglycerides Cholesterol LDL Cholesterol, Calc HDL Cholesterol COVID-19 PCR Assessment & Plan Assessment & Plan narrative: Impression 1. Chest Pain cardiac enzymes are negative, EKG reveals no acute ST-T changes CT angio negative for pulmonary embolus or dissecting aneurysm stress myocardial perfusion scan ordered for the morning echocardiogram completed today results pending continue aspirin, statin, nitrate 2. hyperlipidemia - total cholesterol over 200 LDL over 130 - start atrovastatin 40 mg daily 3. hypertension - blood pressure improved on nitrates - consider beta-angie at discharge further recommendations pending the results of above Quality VTE Deep Vein Thrombosis/Pulmonary Embolism Present on Admission: No
[2020-06-08 15:18] VITALS: O2SAT 99
--- NOTE | 2020-06-08 15:26 | PC.NURSE ---
Addendum entered by Mariela Aranda R.N. 06/08/20 15:33: Pt's nitropaste to right anterior chest removed prior to discharge to home. Pt denies any further chest pain presently or overnight. Original Note: Pt fully dressed sitting on window seat with S.O. anticipating discharge instructions. Pt and pt's S.O. provided with printed and verbal discharge instructions. Scripts for aspirin and statin drug provided with explanation and rationale for same. Encouraged pt to follow up with nuclear med study in a.m. and to call hospital if haven't heard from our facility re arrangement of test Saturday 06/09. Pt and pt's S.O. verbalize understanding and agreement. Pt desires to ambulate out of hospital and this global technical writer accompanied pt and pt's S.O. as escort to private vehicle. Pt reports all personal possessions accounted for. Encouraged pt to follow up with primary care provider for monitoring and addressing questions/issues.
--- NOTE | 2020-06-08 18:22 | PM.DS.1 ---
History of Present Illness History of Present Illness Chief complaint: INTERMITTENT CHEST PAIN, WORSENING Narrative: Patient is a 60-year-old male with a history of hypertension which is untreated who was in his usual state of health until a week ago when he developed substernal chest pain. Patient states he was visiting a friend and developed substernal chest pain that felt like he had been hit in the chest. The pain lasted 20 minutes. It did not radiate. It was 7/10 in intensity and not associated with shortness of breath nausea vomiting or diaphoresis. The pain then resolved. Patient states 3 days later he developed recurrent chest pain which again resolved after lying down. It does not appear to be related to exertion. He again was up today and developed substernal pain. It was severe. He presented to the emergency room for evaluation. Again there were no associated symptoms. The patient has a history of hypertension for which she is not on treatment. He has no history of hyperlipidemia, he does not smoke cigarettes and has no family history. He does report a history of heartburn and states this is different from his usual heartburn. He has not found any factors that alleviate or make it better. The patient was evaluated in the emergency room and his EKG revealed sinus rhythm with a left anterior hemiblock as well as a right bundle stalin block. There was no appreciable acute STT wave abnormalities. His initial set of cardiac enzymes have been negative. Patient arrived to the floor and developed recurrent pain again. Repeat EKG was unchanged. Patient does report that sublingual nitro improves his pain. Patient is admitted to the hospital at this time for further evaluation of chest pain. Discharge Providers Provider Date of admission: 06/07/20 13:44 Discharge Date: 06/08/20 Discharge provider: Cydney Leong MD Summary Hospital Course Discharge Diagnosis: 1. Chest pain 2.Hyperlipidemia 3. Hypertension Hospital Course: Patient was admitted to the hospital for recurrent chest pain. He had improvement of his pain with nitrates. Patient had no further chest pain overnight. EKGs are unremarkable. Cardiac enzymes were negative. The patient was scheduled for an outpatient stress test in the morning. However he wanted to be discharged and was threatening to leave the hospital against medical advice. He did have a CT angio of the chest which was negative for PE and aneurysm. Patient was then discharged. Arrangements were made for him to have an outpatient stress test tomorrow. He had no chest pain at the time of this discharge and he was discharged accordingly. Status at Discharge Cognitive/behavioral status at discharge: oriented Functional status at discharge: independent ambulation Overall status at discharge: patient is back to baseline Time Spent with Patient Time spent: Less than 30 minutes Exam Vital Signs (past 8 hours): - 06/08/20 12:00 06/08/20 15:18 Temperature 98.2 F Pulse Rate 72 Respiratory Rate 17 Blood Pressure 124/80 Pulse Oximetry 100 99 Oxygen Delivery Method Room Air Oxygen Flow Rate 0 Narrative Exam Narrative: mik gentleman in no acute distress lungs: Clear to auscultation cardiac exam: Regular rate and rhythm normal S1-S2 abdomen: Soft nontender nondistended extremities: No edema Objective Labs Result Diagrams: 06/08/20 05:10 06/08/20 05:10 Labs: Laboratory Results - last 24 hr 06/08/20 06/08/20 05:10 05:10 WBC 7.6 RBC 4.94 Hgb 14.4 Hct 42.6 MCV 86.2 MCH 29.1 MCHC 33.8 RDW 13.4 Plt Count 201 Neut % (Auto) 55.1 Lymph % (Auto) 34.2 [place] % (Auto) 7.4 Eos % (Auto) 3.1 Baso % (Auto) 0.2 Neut # (Auto) 4200 Lymph # (Auto) 2600 [place] # (Auto) 600 Eos # (Auto) 200 Baso # (Auto) 0 Sodium 135 L Potassium 4.1 Chloride 104 Carbon Dioxide 28 BUN 13 Creatinine 0.75 Estimated GFR > 60.0 BUN/Creatinine Ratio 17.3 Glucose 106 Calcium 8.7 Troponin I < 0.012 Discharge Assessment & Plan Assessment and Plan Assessment: Chest pain Hypertension Hyperlipidemia Plan of Treatment: Discharge home Stress test in the morning, continue aspirin and statin Follow-up with outpatient PCP regarding treatment of blood Discharge Plan Discharge Plan Patient Disposition: Home Discharge orders & Medications Prescriptions: New atorvastatin [Lipitor] 20 mg Tablet 40 mg PO BEDTIME Qty: 30 RF: 0 aspirin 325 mg Tablet,Delayed Release (Dr/Ec) 325 mg PO DAILY Qty: 30 RF: 0 Other Ambulatory Orders: NM tashi perf SPECT rest & str (Routine) Facility: [facility] - Location: Radiology Ordered By: Cydney Leong Visit Report/Discharge Packet Instructions: High Triglycerides, Cardiac Stress Test, Myocardial Perfusion Imaging, DI for Chest Pain Visit Report Forms: Patient Portal/API, Stroke Signs & Symptoms Discharge Data Attending Provider: Cydney Leong Admit Date/Time: 06/07/20 13:44 Discharges patient from system. Discharge Date/Time: 06/08/20 15:20 Quality VTE Deep Vein Thrombosis/Pulmonary Embolism Present on Admission: No
== END 2020-06-08 15:20 | disposition home or self-care (01) ==
LOC: ED 11:24 → AC 13:45
PROVIDERS: Admitting Provider Internal Medicine; Emergency Provider Emergency Medicine; Referring Provider Emergency Medicine; Visit Provider Internal Medicine
DX: R07.9 Chest pain, unspecified (principal); I10 Essential (primary) hypertension; E78.5 Hyperlipidemia, unspecified; Z11.59 Encounter for screening for other viral diseases
CPT/HCPCS: 36415; 71045; 71275; 80048; 80053; 80061; 82550; 82553; 83690; 84484; 85025; 85379; 85610; 85730; 87635; 93005; 93010; 93306; 94762; 96360; 96361; 99284; G0378; J1650; J7050; Q9967

== ENCOUNTER 2020-10-19 11:35 | Emergency (ER) | payer OTHER, MEDICAID, SELFPAY ==
[2020-06-07 14:32] VITALS: BMI 29.5
[2020-10-19 11:53] VITALS: BP 172/82; PULSE 86; RESP 18; TEMP 37.1; O2SAT 99; BMI 30.1
--- NOTE | 2020-10-19 11:54 | ED.BACK ---
HPI - Back Pain/Injury General Chief Complaint: Extremity Problem,Nontraumatic Stated Complaint: pain in leg from hip to calf right Time Seen by Provider: 10/19/20 11:42 Source: patient Mode of arrival: Ambulatory Limitations: no limitations History of Present Illness HPI Narrative: 60-year-old male smoker with history of hyperlipidemia presents with his significant other and a chief complaint right lower back pain with radiation down his leg for the past 2 months. He denies any specific injury and states he came today because he had a hard time sleeping last night and had enough. He has not taken any medications such as Tylenol or Motrin. He denies any trouble controlling bowel or bladder, numbness, tingling or weakness. He denies any footdrop. He does not use IV drugs and denies use of blood thinners. He has no midline pain. His pain is worse with motion and improves with rest. He describes it as sharp, stabbing and burning pain which at times is as high as a 7/10. MD Complaint: back pain Duration: constant Similar Symptoms Previously: No Location: lumbar spine Severity: severe Quality: burning and sharp Radiation: right leg Severity scale (1-10): 7 Relieving factors: immobilization Exacerbating factors: movement Associated symptoms: denies other symptoms Related Data Previous Rx's Medication Instructions Recorded aspirin 325 mg PO DAILY #30 tab 06/08/20 atorvastatin [Lipitor] 40 mg PO BEDTIME #30 tab 06/08/20 cyclobenzaprine 10 mg PO TID PRN #14 tab 10/19/20 hydrocodone-acetaminophen 1 tab PO Q4-6H PRN #10 tab 10/19/20 ketorolac 10 mg PO Q6H PRN #14 tab 10/19/20 prednisone See Rx Instructions .ROUTE 10/19/20 .COMPLEX #30 tab Allergies Allergy/AdvReac Type Severity Reaction Status Date / Time No Known Drug Allergies Allergy Verified 01/27/19 12:49 Review of Systems Constitutional Constitutional: Denies chills, Denies fatigue, Denies fever(s), Denies frequent falls, Denies lethargy and Denies weakness Eyes Eyes: Denies change in vision, Denies eye discharge, Denies irritation and Denies loss of vision ENT Ears, Nose, Mouth, and Throat: Denies change in voice, Denies dizziness, Denies neck pain, Denies sore throat and Denies throat swelling Cardiovascular Cardiovascular: Denies chest pain, Denies irregular heart rhythm, Denies lightheadedness, Denies palpitations, Denies dyspnea, Denies dyspnea on exertion and Denies orthopnea Respiratory Respiratory: Denies cough, Denies dyspnea, Denies dyspnea on exertion and Denies wheezing Gastrointestinal Gastrointestinal: Denies abdominal pain, Denies change in bowel habits, Denies diarrhea, Denies nausea and Denies vomiting Musculoskeletal Musculoskeletal: Reports back pain, Denies neck pain and Denies numbness Integumentary/Breasts Skin/Breast: Denies pruritus, Denies erythema, Denies rash and Denies wounds Neurologic Neurologic: Denies behavioral changes, Denies confusion, Denies dizziness, Denies frequent falls, Denies loss of vision, Denies numbness and Denies weakness Psychiatric Psychiatric: Denies anxiety, Denies behavioral changes, Denies confusion, Denies depression, Denies homicidal ideation and Denies suicidal ideation Endocrine Endocrine: Denies fatigue, Denies flushing and Denies palpitations Hematologic/Lymphatic Hematologic/Lymphatic: Denies easy bruising Allergic/Immunologic Allergic/Immunologic: Denies urticaria, Denies throat swelling and Denies wheezing Patient History Medical History Hypertension Patient denies medical problems Family History Father Cancer Social History household members: significant other Smoking Status: Never smoker alcohol intake: never Smoking Status: Current every day smoker alcohol intake frequency: 0-2 drinks per day Substance Use Type: marijuana Exam Narrative Exam Narrative: GENERAL: [60] year old patient appears stated age. Well-nourished, well-developed patient, in mild distress. HEAD: Atraumatic. Normocephalic. EYES: Pupils equal round and reactive. Extraocular motions intact. No scleral icterus. No injection or drainage. ENT: Nose without bleeding, purulent drainage. Throat without erythema, tonsillar hypertrophy or exudate. Airway patent. NECK: Trachea midline. Non tender CARDIOVASCULAR: Regular rate and rhythm without murmurs, gallops, or rubs. RESPIRATORY: Clear to auscultation. Breath sounds equal bilaterally. No wheezes, rales, or rhonchi. GASTROINTESTINAL: Abdomen soft, non-tender, nondistended. EXTREMITIES: No edema or joint tenderness. BACK: No midline pain or swelling. Reproducible pain and right lateral buttock. No saddle anesthesia. 5/5 bilateral lower extremity strength. Patellar reflexes 1+ bilaterally. No sensory deficit. NEURO: AOx3. SKIN: No rash or erythema of visible areas Initial Vital Signs Initial Vital Signs: Vital Signs Temperature 98.7 F 10/19/20 11:53 Pulse Rate 86 10/19/20 11:53 Respiratory Rate 18 10/19/20 11:53 Blood Pressure 172/82 H 10/19/20 11:53 Pulse Oximetry 99 10/19/20 11:53 Course Orders Ordered: Discontinued Medications Ketorolac Tromethamine (Ketorolac 60 Mg/2 Ml Vial) 60 mg IM NOW ONE Stop: 10/19/20 12:02 Last Admin: 10/19/20 12:29 Dose: 60 mg Documented by: ALFREDITOONENargis Prednisone (Prednisone 20 Mg Tablet) 40 mg PO NOW ONE Stop: 10/19/20 12:02 Last Admin: 10/19/20 12:29 Dose: 40 mg Documented by: BTONER Vital Signs Vital signs: Vital Signs - 8 hr 10/19/20 11:53 10/19/20 12:45 Temperature 98.7 F Pulse Rate 86 81 Respiratory Rate 18 16 Blood Pressure 172/82 H 167/77 H Pulse Oximetry 99 99 MDM - Back Pain/Injury MDM Narrative Medical decision making narrative: Multiple etiologies of back pain considered including; Epidural abscess, cauda equina, mass occupying lesion, and other considered Discharge Plan Departure Patient Disposition: Home Clinical Impression: Acute lumbar radiculopathy Instructions: DI for Lumbar Radiculopathy Activity Restrictions/Additional Instructions: *You have been diagnosed with [lumbar pain with radiculopathy (likely a piriformis syndrome causing sciatica)] *What to do: *Take medications as directed: Prescriptions have been electronically transmitted to [facility] at your request *Follow up with your primary care provider in 2-3 days, call for an appointment. Let them know you were seen in the Emergency Department and that we ask that you be seen in follow up. If you do not have a doctor, please call the [facility] Resource line *Return to ER if you should have any new, worsening or concerning symptoms, such as [worsening pain, inability to control bowel or bladder, weakness in your leg, or other bothersome symptoms] Prescriptions: New cyclobenzaprine 10 mg tablet 10 mg PO TID PRN (Reason: muscle spasm) Qty: 14 RF: 0 prednisone 10 mg tablet See Rx Instructions .ROUTE .COMPLEX Qty: 30 RF: 0 hydrocodone-acetaminophen 5-325 mg tablet 1 tab PO Q4-6H PRN (Reason: pain) Qty: 10 RF: 0 ketorolac 10 mg tablet 10 mg PO Q6H PRN (Reason: pain) Qty: 14 RF: 0 No Action atorvastatin [Lipitor] 20 mg Tablet 40 mg PO BEDTIME Qty: 30 RF: 0 aspirin 325 mg Tablet,Delayed Release (Dr/Ec) 325 mg PO DAILY Qty: 30 RF: 0
--- NOTE | 2020-10-19 12:00 | PC.NURSE ---
pt states putting pressure into the pain feels better.
[2020-10-19] MEDS: KETOROLAC 60 MG/2 ML VIAL IM (12:29)
[2020-10-19] MEDS: predniSONE 20 MG TABLET 40 MG PO (12:29)
[2020-10-19 12:45] VITALS: BP 167/77; PULSE 81; RESP 16; O2SAT 99
== END 2020-10-19 12:49 | disposition home or self-care (01) ==
PROVIDERS: Emergency Provider Emergency Medicine
DX: M54.16 Radiculopathy, lumbar region (principal); E78.5 Hyperlipidemia, unspecified; I10 Essential (primary) hypertension
CPT/HCPCS: 96372; 99281; 99283; J1885

== ENCOUNTER 2021-09-14 17:26 | Emergency (ER) | payer OTHER, MEDICAID, SELFPAY ==
[2020-06-07 14:32] VITALS: BMI 29.5
[2021-09-14 17:36] VITALS: BP 189/97; PULSE 89; RESP 16; TEMP 36.5; O2SAT 99
--- NOTE | 2021-09-14 17:36 | ED.GENADULT ---
HPI - General Adult General Stated complaint: NEEDS SAMANTHA TAKEN OUT RT ARM Time Seen by Provider: 09/14/21 17:36 Source: patient Mode of arrival: Ambulatory Limitations: no limitations History of Present Illness HPI narrative: 61-year-old male who approximately 10 days ago was seen here in the emergency department and had samantha placed in his right forearm after sustaining a laceration. He was told to return to the emergency department to have them removed. He comes today to have the samantha removed. No new symptoms. Related Data Previous Rx's Medication Instructions Recorded aspirin 325 mg tablet,delayed 325 mg PO DAILY #30 tab 06/08/20 release atorvastatin 20 mg tablet (Lipitor) 40 mg PO BEDTIME #30 tab 06/08/20 cyclobenzaprine 10 mg tablet 10 mg PO TID PRN #14 tab 10/19/20 hydrocodone 5 mg-acetaminophen 325 1 tab PO Q4-6H PRN #10 tab 10/19/20 mg tablet ketorolac 10 mg tablet 10 mg PO Q6H PRN #14 tab 10/19/20 prednisone 10 mg tablet See Rx Instructions .ROUTE 10/19/20 .COMPLEX #30 tab Allergies Allergy/AdvReac Type Severity Reaction Status Date / Time No Known Drug Allergies Allergy Verified 01/27/19 12:49 Review of Systems Musculoskeletal Musculoskeletal: Reports system reviewed and no additional complaints, except as documented Integumentary/Breasts Comments: Healing wound right forearm Neurologic Neurologic: Reports system reviewed and no additional complaints, except as documented Patient History Medical History Hypertension Patient denies medical problems Family History Father Cancer Social History household members: significant other Smoking Status: Current every day smoker alcohol intake: never Smoking Status: Current every day smoker alcohol intake frequency: 0-2 drinks per day Substance Use Type: marijuana Exam Const General: cooperative, healthy appearing and comfortable Skin Other: Patient does have an appropriate healing wound to his right forearm with some surrounding erythema that is more consistent with inflammation secondary to the healing rather than an infection. Neuro General: patient alert and patient awake Medical Decision Making MDM Narrative Medical decision making narrative: Six samantha were removed from the right forearm without incident. The wound appears well and healing appropriately. No signs of infection. Steri-Strips were placed over the area to continue with wound healing. Patient was given care instructions and return precautions. He expressed understanding and agreement. Discharge Plan Departure Patient Disposition: Home Clinical Impression: Encounter for removal of samantha Activity Restrictions/Additional Instructions: The wound does appear to be healing well. The Steri-Strips that were placed today should come off on their own sometime within the next week. You can shower like normal. Return to the emergency department for any new or worsening symptoms Prescriptions: No Action atorvastatin [Lipitor] 20 mg Tablet 40 mg PO BEDTIME Qty: 30 0RF aspirin 325 mg Tablet,Delayed Release (Dr/Ec) 325 mg PO DAILY Qty: 30 0RF cyclobenzaprine 10 mg tablet 10 mg PO TID PRN (Reason: muscle spasm) Qty: 14 0RF prednisone 10 mg tablet See Rx Instructions .ROUTE .COMPLEX Qty: 30 0RF Rx Instructions: Day 1,2,3: 40mg PO Daily Day 4,5,6: 30mg PO Daily Day 7,8,9: 20mg PO Daily Day 10,11,12: 10mg PO Daily #30 hydrocodone-acetaminophen 5-325 mg tablet 1 tab PO Q4-6H PRN (Reason: pain) Qty: 10 0RF ketorolac 10 mg tablet 10 mg PO Q6H PRN (Reason: pain) Qty: 14 0RF
--- NOTE | 2021-09-14 17:38 | PC.NURSE ---
6 sutures removed from right inner forearm by DR Crocker. Patient tolerated well. Steri Strips applied
== END 2021-09-14 17:41 | disposition home or self-care (01) ==
PROVIDERS: Emergency Provider Emergency Medicine
DX: S51.811D Laceration without foreign body of right forearm, subsequent encounter (principal); Z48.02 Encounter for removal of sutures; X58.XXXD Exposure to other specified factors, subsequent encounter
CPT/HCPCS: 99281

== ENCOUNTER 2021-11-10 15:43 | Emergency (ER) | payer OTHER, SELFPAY ==
[2020-06-07 14:32] VITALS: BMI 29.5
[2021-11-10 15:46] VITALS: BP 156/73; PULSE 99; RESP 22; TEMP 36; O2SAT 98
[2021-11-10 16:01] LABS: COVID19 -Nasal RAPID POSITIVE (Negative)
--- NOTE | 2021-11-10 16:24 | ED.URI ---
HPI - URI/Sore Throat General Chief Complaint: Upper Respiratory Symptoms Stated Complaint: chest cold, no taste, nauses, fever Time Seen by Provider: 11/10/21 15:50 Source: patient Mode of arrival: Ambulatory Limitations: no limitations History of Present Illness HPI Narrative: This is a 61-year-old male who comes emergency department with complaint of loss of taste, fevers, nausea, congestion and cough. Patient has had generalized body aches. He has not had vomiting. He has not had diarrhea constipation. He states he is urinating normally. He has had some chest discomfort. Occasional shortness of breath. He states he has had about 10 days of symptoms without any improvement. He done vaccinated for coronavirus. Patient does smoke, occasional alcohol, no illicit. Related Data Previous Rx's Medication Instructions Recorded aspirin 325 mg tablet,delayed 325 mg PO DAILY #30 tab 06/08/20 release atorvastatin 20 mg tablet (Lipitor) 40 mg PO BEDTIME #30 tab 06/08/20 cyclobenzaprine 10 mg tablet 10 mg PO TID PRN #14 tab 10/19/20 hydrocodone 5 mg-acetaminophen 325 1 tab PO Q4-6H PRN #10 tab 10/19/20 mg tablet ketorolac 10 mg tablet 10 mg PO Q6H PRN #14 tab 10/19/20 prednisone 10 mg tablet See Rx Instructions .ROUTE 10/19/20 .COMPLEX #30 tab Allergies Allergy/AdvReac Type Severity Reaction Status Date / Time No Known Drug Allergies Allergy Verified 01/27/19 12:49 Review of Systems Review of Systems ROS Unobtainable: All systems reviewed & are unremarkable except as noted in HPI and below Patient History Medical History Hypertension Patient denies medical problems Family History Father Cancer Social History household members: significant other Smoking Status: Current some day smoker alcohol intake: never Smoking Status: Current some day smoker alcohol intake frequency: 0-2 drinks per day Substance Use Type: marijuana Exam Narrative Exam Narrative: GEN: well nourished, well appearing male, alert and oriented x 3, patient appears to be in mild distress. HEENT: Atraumatic, pupils are equal round reactive to light, extraocular movements are intact, nares are clear HEART: Regular rate and rhythm without murmur, clicks, rubs. LUNGS:Lungs clear to auscultation, no wheezes, rales, crackles, chest moves symmetrically ABD:bowel sounds normal, soft, non-tender, no guarding, rebound, rigidity, no masses noted, no hepatosplenomegaly MSCL: Non-tender, muscles strength 5/5 upper and lower extremities, full range of motion NEURO:CN 2-12 intact, sensation normal Initial Vital Signs Initial Vital Signs: Vital Signs Temperature 96.8 F L 11/10/21 15:46 Pulse Rate 99 H 11/10/21 15:46 Respiratory Rate 22 11/10/21 15:46 Blood Pressure 156/73 H 11/10/21 15:46 Pulse Oximetry 98 11/10/21 15:46 Course Orders Ordered: ED Orders 11/10/21 15:57 COVID19 -Nasal swab/Pre-Proc Stat Vital Signs Vital signs: Vital Signs - 8 hr 11/10/21 15:46 11/10/21 16:53 Temperature 96.8 F L Pulse Rate 99 H 92 H Respiratory Rate 22 17 Blood Pressure 156/73 H Pulse Oximetry 98 99 MDM - URI/Sore Throat Lab Data Labs: Lab Results 11/10/21 Range/Units 15:57 SARS-CoV-2 (PCR) Positive H (Negative) MDM Narrative Medical decision making narrative: This is a 61-year-old unvaccinated male with complaint of symptoms consistent with COVID. He is positive for coronavirus. His vitals are reassuring. Patient is about 10 days into his symptoms and was concerned because he had not improved. We discussed expected course of the illness, return precautions and if he is able to obtain pulse ox would be appropriate. Discharge Plan Departure Patient Disposition: Home Clinical Impression: COVID-19 virus infection Instructions: DI for COVID-19 (Suspected or Confirmed ) Activity Restrictions/Additional Instructions: *You have been diagnosed with coronavirus infection If you wish you may obtain a pulse oximeter for use at home to monitor. Please return to the ER if your pulse oximeter shows an O2 saturation less than 90%. You may take Tylenol and/or ibuprofen as needed for fevers or muscle aches. You may use cold and cough medicine [id number]. Return for increasing chest pain, shortness of breath, passing out, persistent vomiting or other new or concerning symptoms. *What to do: * per recommendations from the CDC and the [facility] Department of Health * stay home except to get medical care. Restrict activities outside your home, except for getting medical care. Do not go to work, school, or public areas. Avoid using public transportation, ride sharing, or taxis. * separate yourself from other people in your home. * call ahead before visiting your doctor * Wear a face mask * Cover your coughs and sneezes * Clean your hands often * Avoid sharing household items * Clean all high-touch services every day * Monitor your symptoms and seek prompt medical attention if your illness is worsening, particularly with difficulty in breathing. Prescriptions: No Action atorvastatin [Lipitor] 20 mg Tablet 40 mg PO BEDTIME Qty: 30 0RF aspirin 325 mg Tablet,Delayed Release (Dr/Ec) 325 mg PO DAILY Qty: 30 0RF cyclobenzaprine 10 mg tablet 10 mg PO TID PRN (Reason: muscle spasm) Qty: 14 0RF prednisone 10 mg tablet See Rx Instructions .ROUTE .COMPLEX Qty: 30 0RF Rx Instructions: Day 1,2,3: 40mg PO Daily Day 4,5,6: 30mg PO Daily Day 7,8,9: 20mg PO Daily Day 10,11,12: 10mg PO Daily #30 hydrocodone-acetaminophen 5-325 mg tablet 1 tab PO Q4-6H PRN (Reason: pain) Qty: 10 0RF ketorolac 10 mg tablet 10 mg PO Q6H PRN (Reason: pain) Qty: 14 0RF
[2021-11-10 16:53] VITALS: PULSE 92; RESP 17; O2SAT 99
== END 2021-11-10 17:01 | disposition home or self-care (01) ==
PROVIDERS: Emergency Provider Emergency Medicine
DX: U07.1 COVID-19 (principal); F17.200 Nicotine dependence, unspecified, uncomplicated
CPT/HCPCS: 87635; 99281; 99282; C9803

== ENCOUNTER 2021-11-23 11:16 | Emergency (ER) | payer OTHER, MEDICAID, SELFPAY ==
[2020-06-07 14:32] VITALS: BMI 29.5
[2021-11-23] VITALS (26 sets, daily range): BP systolic 172–205; BP diastolic 86–107; PULSE 78–91; RESP 16–44; TEMP 36.2–36.6; O2SAT 87–100; BMI 27.6
--- NOTE | 2021-11-23 11:39 | DI.RAD.S_ITS ---
PROCEDURE: XR CHEST 1V INDICATIONS: suspected sepsis TECHNIQUE: One view of the chest was acquired. COMPARISON: [facility], CR, XR CHEST 1V, 06/07/2020, 12:05. FINDINGS: Surgical changes and devices: None. Lungs and pleura: New diffuse patchy airspace opacity in both lungs with upper and lower lobe involvement, although there is upper lobe predominance. Increased interstitial markings in both lungs. No pleural effusions or pneumothorax. Mediastinum: Mediastinal contours appear normal. Heart size is normal. Bones and chest wall: No suspicious bony lesions. Overlying soft tissues appear unremarkable. IMPRESSION: Mixed increased interstitial and airspace opacities. Findings are most likely infectious although pulmonary edema could cause a similar appearance. Follow-up to both clinical and radiographic resolution recommended to help exclude an underlying neoplasm. Dictated by: Rafael Wheeler M.D. on 11/23/2021 at 13:06 Approved by: Rafael Wheeler M.D. on 11/23/2021 at 13:07
[2021-11-23 11:58] LABS: Add Manual Diff / Slide Review NO; Basophils Absolute Auto 100 /uL (0-100); Eosinophils Absolute Auto 200 /uL (0-450); Hematocrit 37.9 % (41-53); Hemoglobin 12.8 g/dL (13.5-17.5); Lymphocytes Absolute Auto 2500 /uL (1100-4500); Lymphocytes Percent Auto 23.7 % (25-40); Mean Corpuscular HGB Conc 33.7 % (30-36); Mean Corpuscular Hemoglobin 28.7 PG (26-34); Monocytes Absolute Auto 800 /uL (0-900); Monocytes Percent Auto 7.6 % (3-14); Neutrophils Absolute Auto 7100 /uL (1500-7000); Neutrophils Percent Auto 65.7 % (50-75); Platelet Count 637 X10^3/uL (150-400); Red Blood Cell Count 4.46 X10^6/uL (4.5-5.9); White Blood Cell Count 10.8 X10^3/uL (4.5-11.0)
--- NOTE | 2021-11-23 12:02 | PC.NURSE ---
Pt placed on 3L NC during triage, pt now sitting up in stretcher, RT reports returning pt to RA.
[2021-11-23 12:14] LABS: Alanine Aminotransferase 72 IU/L (<50); Albumin 3.6 g/dL (3.5-5.0); Alkaline Phosphatase 176 U/L (38-126); Aspartate Aminotransferase 42 IU/L (17-59); BUN Creatinine Ratio 17.8 (6-22); Bilirubin Total 0.4 mg/dL (0.2-1.3); Blood Urea Nitrogen 13 mg/dL (9-20); Carbon Dioxide 30 mmol/L (22-32); Chloride 105 mmol/L (98-107); Estimated Glomerular Filt Rate > 60.0 mL/min (>60); Globulin 3.7 g/dL (1.7-4.1); Glucose 160 mg/dL (80-110); HEMOLYSIS < 15 (0-50); Lactate (Lactic Acid) 1.5 mmol/L (0.7-2.1); Lipase 83 U/L (23-300); Sodium 141 mmol/L (137-145); Total Protein 7.3 g/dL (6.3-8.2)
--- NOTE | 2021-11-23 12:29 | ED_ITS ---
HPI - General Adult General Chief complaint: Fever Stated complaint: Trouble breathing Time Seen by Provider: 11/23/21 12:29 Source: patient Mode of arrival: Ambulatory History of Present Illness HPI narrative: 61-year-old gentleman with history of hypertension hyperlipidemia who is COVID positive with symptoms starting on or about October 31. He was seen on the with no significant hypoxia and was discharged home. Related Data Previous Rx's Medication Instructions Recorded aspirin 325 mg tablet,delayed 325 mg PO DAILY #30 tab 06/08/20 release atorvastatin 20 mg tablet (Lipitor) 40 mg PO BEDTIME #30 tab 06/08/20 cyclobenzaprine 10 mg tablet 10 mg PO TID PRN #14 tab 10/19/20 hydrocodone 5 mg-acetaminophen 325 1 tab PO Q4-6H PRN #10 tab 10/19/20 mg tablet ketorolac 10 mg tablet 10 mg PO Q6H PRN #14 tab 10/19/20 prednisone 10 mg tablet See Rx Instructions .ROUTE 10/19/20 .COMPLEX #30 tab Allergies Allergy/AdvReac Type Severity Reaction Status Date / Time No Known Drug Allergies Allergy Verified 11/23/21 11:38 Patient History Medical History Hypertension Patient denies medical problems Family History Father Cancer Social History household members: significant other Smoking Status: Current some day smoker alcohol intake: never Smoking Status: Current some day smoker alcohol intake frequency: 0-2 drinks per day Substance Use Type: marijuana Exam Initial Vital Signs Initial Vital Signs: Vital Signs Temperature 97.2 F L 11/23/21 11:25 Pulse Rate 78 11/23/21 11:25 Respiratory Rate 44 H 11/23/21 11:25 Blood Pressure 181/95 H 11/23/21 11:25 Pulse Oximetry 89 L 11/23/21 11:25 General: Appears moderately ill in moderate respiratory distress. Able to give a complete and coherent history. HEENT: Moist mucous membranes, normal sclera with reactive pupils, Neck: No JVD, supple Respiratory: Lungs are clear to auscultation, no wheezing no rales no rhonchi. He is tachypneic with Full and symmetrical air movement Cardiac: Regular rate and rhythm no murmurs no bruits Abdomen: Soft, nontender, good bowel tones, no flank pain Skin: Warm and dry, no rashes Neurologic: Grossly neurologically intact with no obvious asymmetries or abnormalities Extremities: No trauma, well perfused Psych: Cooperative, appropriate insight and affect Course Orders Ordered: Discontinued Medications Dexamethasone (Dexamethasone 10 Mg/Ml Vial) 6 mg IV NOW ONE Stop: 11/23/21 17:55 Last Admin: 11/23/21 17:59 Dose: 6 mg Documented by: JOCELYN Vital Signs Vital signs: Vital Signs - 8 hr 11/23/21 11:25 11/23/21 12:05 11/23/21 12:15 Temperature 97.2 F L Pulse Rate 78 87 79 Respiratory Rate 44 H 27 H 20 Blood Pressure 181/95 H 185/95 H Pulse Oximetry 89 L 95 94 11/23/21 12:30 11/23/21 12:45 11/23/21 13:00 Temperature Pulse Rate 89 82 82 Respiratory Rate 22 20 20 Blood Pressure 172/92 H 175/96 H 179/98 H Pulse Oximetry 96 96 100 11/23/21 13:07 11/23/21 13:15 11/23/21 13:30 Temperature 98 F Pulse Rate 81 82 Respiratory Rate 20 21 Blood Pressure 179/98 H 179/101 H Pulse Oximetry 100 100 11/23/21 13:45 11/23/21 14:00 11/23/21 14:15 Temperature Pulse Rate 86 80 85 Respiratory Rate 22 20 25 H Blood Pressure 184/97 H 205/98 H 176/86 H Pulse Oximetry 100 100 100 11/23/21 14:30 11/23/21 14:31 11/23/21 15:00 Temperature Pulse Rate 85 84 91 H Respiratory Rate 22 23 20 Blood Pressure 204/107 H Pulse Oximetry 97 87 L 97 11/23/21 15:30 11/23/21 16:00 11/23/21 16:10 Temperature Pulse Rate 84 89 86 Respiratory Rate 20 22 28 H Blood Pressure 176/92 H Pulse Oximetry 98 99 87 L 11/23/21 16:30 11/23/21 16:38 11/23/21 17:00 Temperature Pulse Rate 87 87 Respiratory Rate 20 16 Blood Pressure 176/92 H Pulse Oximetry 92 99 92 11/23/21 17:33 Temperature Pulse Rate 81 Respiratory Rate 24 Blood Pressure 184/100 H Pulse Oximetry Medical Decision Making Lab Data Result diagrams: 11/23/21 11:45 11/23/21 11:45 Labs: Lab Results 11/23/21 11/23/21 11/23/21 Range/Units 11:45 11:45 11:45 WBC 10.8 (4.5-11.0) X10^3/uL RBC 4.46 L (4.5-5.9) X10^6/uL Hgb 12.8 L (13.5-17.5) g/dL Hct 37.9 L (41-53) % MCV 85.0 (80-100) fL MCH 28.7 (26-34) PG MCHC 33.7 (30-36) % RDW 13.0 (11.6-14.8) % Plt Count 637 H (150-400) X10^3/uL Neut % (Auto) 65.7 (50-75) % Lymph % (Auto) 23.7 L (25-40) % [place] % (Auto) 7.6 (3-14) % Eos % (Auto) 2.0 (2-4) % Baso % (Auto) 1.0 (0-2) % Neut # (Auto) 7100 H (3285-3771) /uL Lymph # (Auto) 2500 (8066-3515) /uL [place] # (Auto) 800 (0-900) /uL Eos # (Auto) 200 (0-450) /uL Baso # (Auto) 100 (0-100) /uL D-Dimer (<230) ng/mL Sodium 141 (137-145) mmol/L Potassium 4.0 (3.4-5.1) mmol/L Chloride 105 (98-107) mmol/L Carbon Dioxide 30 (22-32) mmol/L BUN 13 (9-20) mg/dL Creatinine 0.73 (0.66-1.25) mg/dL Estimated GFR > 60.0 (>60) mL/min BUN/Creatinine Ratio 17.8 (6-22) Glucose 160 H (80-110) mg/dL Lactate 1.5 (0.7-2.1) mmol/L Calcium 9.0 (8.4-10.2) mg/dL Total Bilirubin 0.4 (0.2-1.3) mg/dL AST 42 (17-59) IU/L ALT 72 H (<50) IU/L Alkaline Phosphatase 176 H (38-126) U/L Troponin I (0.01-0.034) ng/mL NT-Pro-B Natriuret Pep (<125) pg/mL Total Protein 7.3 (6.3-8.2) g/dL Albumin 3.6 (3.5-5.0) g/dL Globulin 3.7 (1.7-4.1) g/dL Albumin/Globulin Ratio 1.0 (1.0-2.8) Lipase 83 (23-300) U/L Procalcitonin 0.06 (<0.5) ng/mL Urine Color Urine Appearance Urine pH (4.5-8.0) Ur Specific [place] (1.000-1.035) Urine Protein (Negative) Urine Glucose (UA) (Negative) g/dL Urine Ketones (NEGATIVE) Urine Occult Blood (Negative) Urine Nitrate (Negative) Urine Bilirubin (NEGATIVE) Urine Urobilinogen (0.2) E.U./dL Ur Leukocyte Esterase (NEGATIVE) Urine RBC (0-5/HPF) Urine WBC (0-5/HPF) Amorphous Sediment Urine Bacteria (None) Ur Culture Indicated? 11/23/21 11/23/21 11/23/21 Range/Units 12:45 12:45 16:15 WBC (4.5-11.0) X10^3/uL RBC (4.5-5.9) X10^6/uL Hgb (13.5-17.5) g/dL Hct (41-53) % MCV (80-100) fL MCH (26-34) PG MCHC (30-36) % RDW (11.6-14.8) % Plt Count (150-400) X10^3/uL Neut % (Auto) (50-75) % Lymph % (Auto) (25-40) % [place] % (Auto) (3-14) % Eos % (Auto) (2-4) % Baso % (Auto) (0-2) % Neut # (Auto) (7200-4786) /uL Lymph # (Auto) (0681-2431) /uL [place] # (Auto) (0-900) /uL Eos # (Auto) (0-450) /uL Baso # (Auto) (0-100) /uL D-Dimer 673 H (<230) ng/mL Sodium (137-145) mmol/L Potassium (3.4-5.1) mmol/L Chloride (98-107) mmol/L Carbon Dioxide (22-32) mmol/L BUN (9-20) mg/dL Creatinine (0.66-1.25) mg/dL Estimated GFR (>60) mL/min BUN/Creatinine Ratio (6-22) Glucose (80-110) mg/dL Lactate (0.7-2.1) mmol/L Calcium (8.4-10.2) mg/dL Total Bilirubin (0.2-1.3) mg/dL AST (17-59) IU/L ALT (<50) IU/L Alkaline Phosphatase (38-126) U/L Troponin I < 0.012 (0.01-0.034) ng/mL NT-Pro-B Natriuret Pep 140 H (<125) pg/mL Total Protein (6.3-8.2) g/dL Albumin (3.5-5.0) g/dL Globulin (1.7-4.1) g/dL Albumin/Globulin Ratio (1.0-2.8) Lipase (23-300) U/L Procalcitonin (<0.5) ng/mL Urine Color Yellow Urine Appearance Clear Urine pH 7.0 (4.5-8.0) Ur Specific [place] 1.015 (1.000-1.035) Urine Protein Negative (Negative) Urine Glucose (UA) Negative (Negative) g/dL Urine Ketones Negative (NEGATIVE) Urine Occult Blood Negative (Negative) Urine Nitrate Negative (Negative) Urine Bilirubin Negative (NEGATIVE) Urine Urobilinogen 0.2 (0.2) E.U./dL Ur Leukocyte Esterase Negative (NEGATIVE) Urine RBC None seen (0-5/HPF) Urine WBC 0-1/hpf (0-5/HPF) Amorphous Sediment 2+ Urine Bacteria None seen (None) Ur Culture Indicated? Cult not indicated Imaging Data CT scan - chest: Radiologist's Impression: FINDINGS:? Image quality:? Excellent.? ? Pulmonary arteries:? Pulmonary arteries are normal in size, and demonstrate no intraluminal filling defects to suggest central pulmonary embolism.? ? Lungs and pleura:? Extensive irregular patchy opacities bilaterally in the upper and lower lobes, more confluent in the upper lobes and superior segment left lower lobe.? There are areas of mild peripheral traction bronchiectasis and air bronchograms in several of these opacities.? No pleural effusions.? No pneumothorax. ? Mediastinum:? Prominent bilateral hilar adenopathy and moderate mediastinal adenopathy, mainly nonenlarged mediastinal lymph nodes.? The esophagus is normal without hiatal hernia.? The aorta and great vessels are normal in caliber and contour.? Heart size is normal.? No septal bowing.? Moderate coronary artery calcification in the LAD.? No pericardial effusion.? ? Bones and chest wall:? Multilevel degenerative disc and endplate changes seen in the thoracic spine..? No suspicious bony lesions.? Ribs and thoracic spine appear intact throughout.? Thyroid gland is normal.? No axillary or supraclavicular adenopathy.? ? Abdomen:? Visualized upper abdominal solid organs appear normal in the early arterial phase of enhancement.? ? IMPRESSION:? ? 1. No pulmonary embolus. ? 2. Extensive bilateral upper and mid lung alveolar opacities suggestive of pneumonia, likely infectious, inflammatory, possibly reactive. ? 3. Bilateral hilar and mild mediastinal adenopathy. ? 4. Moderate coronary artery calcification.? ? ? Dictated by: Julita Waggoner M.D. on 11/23/2021 at 15:31? ?? ECG Data Interpretation: Sinus rhythm at a rate of 80 Left axis deviation no acute ischemic changes MDM Narrative Medical decision making narrative: 61-year-old gentleman presents with COVID pneumonia related hypoxia. Has limited housing options has not been taking his usual medications and feels that he has not been healing appropriately because he has been sleeping in the cold outside. He meets criteria for hospital admission given his oxygenation needs. When reviewed this with the patient he stated that he now has a more stable place to stay and would much prefer discharge home with oxygen to be delivered at home. Confirmed that there is and address to deliver the home oxygen this is arranged and he is sent home with an oxygen tank with instructions to return should he have worsening shortness of breath or other symptoms. At this point he is safe for home discharge Discharge Plan Departure Patient Disposition: Home Clinical Impression: Pneumonia due to 2019 novel coronavirus, Hypoxia Instructions: DI for COVID-19 (Suspected or Confirmed ) Activity Restrictions/Additional Instructions: Thank you for coming in today Your COVID symptoms are significant. You do meet criteria for staying in the hospital. I do understand that you would prefer not to do that today. We were able to arrange for home oxygen. Will need to continue to use the oxygen is longer feeling short of breath. If you find that you are worsening please return to the ER Prescriptions: No Action atorvastatin [Lipitor] 20 mg Tablet 40 mg PO BEDTIME Qty: 30 0RF aspirin 325 mg Tablet,Delayed Release (Dr/Ec) 325 mg PO DAILY Qty: 30 0RF cyclobenzaprine 10 mg tablet 10 mg PO TID PRN (Reason: muscle spasm) Qty: 14 0RF prednisone 10 mg tablet See Rx Instructions .ROUTE .COMPLEX Qty: 30 0RF Rx Instructions: Day 1,2,3: 40mg PO Daily Day 4,5,6: 30mg PO Daily Day 7,8,9: 20mg PO Daily Day 10,11,12: 10mg PO Daily #30 hydrocodone-acetaminophen 5-325 mg tablet 1 tab PO Q4-6H PRN (Reason: pain) Qty: 10 0RF ketorolac 10 mg tablet 10 mg PO Q6H PRN (Reason: pain) Qty: 14 0RF
[2021-11-23 12:30] LABS: Procalcitonin 0.06 ng/mL (<0.5)
--- NOTE | 2021-11-23 13:06 | PC.NURSE ---
Pt reports SOB and labored breathing noted, pt diaphoretic. 2L NC applied and temperature recorded, assisted pt to remove boots.
[2021-11-23 13:14] LABS: D Dimer 673 ng/mL (<230)
[2021-11-23 13:34] LABS: NT-proBNP (BNP-Adult 18+) 140 pg/mL (<125); Troponin I < 0.012 ng/mL (0.01-0.034)
--- NOTE | 2021-11-23 13:38 | DI.CT.S_ITS ---
PROCEDURE: CT ANGIO CHEST PE PROTOCOL INDICATIONS: elevated d dimer, respiratory distress TECHNIQUE: After the administration of intravenous contrast, 2 mm thick sections acquired from the pulmonary apices to the posterior costophrenic angles. 3-dimensional maximum intensity projection (MIP) coronal and sagittal reformats were then acquired through the thorax. For radiation dose reduction, the following was used: automated exposure control, adjustment of mA and/or kV according to patient size. COMPARISON: [facility], CT, CT ANGIO CHEST PE PROTOCOL, 06/07/2020, 15:07. FINDINGS: Image quality: Excellent. Pulmonary arteries: Pulmonary arteries are normal in size, and demonstrate no intraluminal filling defects to suggest central pulmonary embolism. Lungs and pleura: Extensive irregular patchy opacities bilaterally in the upper and lower lobes, more confluent in the upper lobes and superior segment left lower lobe. There are areas of mild peripheral traction bronchiectasis and air bronchograms in several of these opacities. No pleural effusions. No pneumothorax. Mediastinum: Prominent bilateral hilar adenopathy and moderate mediastinal adenopathy, mainly nonenlarged mediastinal lymph nodes. The esophagus is normal without hiatal hernia. The aorta and great vessels are normal in caliber and contour. Heart size is normal. No septal bowing. Moderate coronary artery calcification in the LAD. No pericardial effusion. Bones and chest wall: Multilevel degenerative disc and endplate changes seen in the thoracic spine.. No suspicious bony lesions. Ribs and thoracic spine appear intact throughout. Thyroid gland is normal. No axillary or supraclavicular adenopathy. Abdomen: Visualized upper abdominal solid organs appear normal in the early arterial phase of enhancement. IMPRESSION: 1. No pulmonary embolus. 2. Extensive bilateral upper and mid lung alveolar opacities suggestive of pneumonia, likely infectious, inflammatory, possibly reactive. 3. Bilateral hilar and mild mediastinal adenopathy. 4. Moderate coronary artery calcification. Dictated by: Julita Waggoner M.D. on 11/23/2021 at 15:31 Approved by: Julita Waggoner M.D. on 11/23/2021 at 15:42
[2021-11-23 16:28] LABS: Appearance Urine UA CLEAR; Bilirubin Urine UA NEGATIVE (NEGATIVE); Color Urine UA YELLOW; Glucose Urine UA NEGATIVE (Negative); Ketones Urine UA NEGATIVE (NEGATIVE); Leukocyte Esterase Urine UA NEGATIVE (NEGATIVE); Nitrite Urine UA NEGATIVE (Negative); Occult Blood Urine UA NEGATIVE (Negative); Protein Urine UA NEGATIVE (Negative); Specific Gravity Urine UA 1.015 (1.000-1.035); Urobilinogen Urine UA 0.2 E.U./dL (0.2)
[2021-11-23 16:39] LABS: Amorphous Sediment Urine 2+; Bacteria Urine None Seen; Culture Indicated Urine Cult Not Indicated; RBC Urine None Seen (0-5/HPF); WBC Urine 0-1/HPF (0-5/HPF)
[2021-11-23] MEDS: DEXAMETHASONE 10 MG/ML VIAL 6 MG IV (17:59)
== END 2021-11-23 18:18 | disposition home or self-care (01) ==
PROVIDERS: Emergency Provider Emergency Medicine
DX: U07.1 COVID-19 (principal); J12.82 Pneumonia due to coronavirus disease 2019; R09.02 Hypoxemia; I10 Essential (primary) hypertension; F17.200 Nicotine dependence, unspecified, uncomplicated
CPT/HCPCS: 36415; 71045; 71275; 80053; 81001; 83605; 83690; 83880; 84145; 84484; 85025; 85379; 87040; 93005; 99285; J1100; Q9967

== ENCOUNTER 2022-10-05 20:39 | Emergency (ER) | payer OTHER, MEDICAID, SELFPAY ==
[2020-06-07 14:32] VITALS: BMI 29.5
[2022-10-05 20:43] VITALS: BP 185/96; PULSE 91; RESP 15; TEMP 36.8; O2SAT 99; BMI 28.7
--- NOTE | 2022-10-05 20:46 | DI.RAD.S_ITS ---
PROCEDURE: XR RIBS RT MIN 3V W CXR 1V INDICATIONS: ruq pain TECHNIQUE: Two views of the right ribs were acquired, along with a single view chest. COMPARISON: None. FINDINGS: Surgical changes and devices: None. Bones and chest wall: No fractures or dislocations. No suspicious bony lesions. Overlying soft tissues appear unremarkable. Lungs and pleura: No pleural effusions or pneumothorax. Lungs appear clear. Mediastinum: Mediastinal contours appear normal. Heart size is normal. IMPRESSION: No acute finding. Dictated by: Rafael Wheeler M.D. on 10/05/2022 at 21:26 Approved by: Rafael Wheeler M.D. on 10/05/2022 at 21:27
[2022-10-05 21:41] LABS: Add Manual Diff / Slide Review NO; Basophils Absolute Auto 0 /uL (0-100); Basophils Percent Auto 0.3 % (0-2); Eosinophils Absolute Auto 0 /uL (0-450); Eosinophils Percent Auto 0.8 % (2-4); Hematocrit 43.5 % (41-53); Hemoglobin 14.9 g/dL (13.5-17.5); Lymphocytes Absolute Auto 1800 /uL (1100-4500); Lymphocytes Percent Auto 29.8 % (25-40); Mean Corpuscular HGB Conc 34.1 % (30-36); Mean Corpuscular Hemoglobin 28.8 PG (26-34); Mean Corpuscular Volume 84.5 fL (80-100); Monocytes Absolute Auto 700 /uL (0-900); Monocytes Percent Auto 11.9 % (3-14); Neutrophils Absolute Auto 3400 /uL (1500-7000); Neutrophils Percent Auto 57.2 % (50-75); Platelet Count 261 X10^3/uL (150-400); Red Blood Cell Count 5.15 X10^6/uL (4.5-5.9)
[2022-10-05 21:47] LABS: Alanine Aminotransferase 47 IU/L (<50); Albumin 4.4 g/dL (3.5-5.0); Albumin Globulin Ratio 1.3 (1.0-2.8); Alkaline Phosphatase 115 U/L (38-126); Aspartate Aminotransferase 28 IU/L (17-59); BUN Creatinine Ratio 24.7 (6-22); Bilirubin Total 0.2 mg/dL (0.2-1.3); Blood Urea Nitrogen 18 mg/dL (9-20); Calcium 9.2 mg/dL (8.4-10.2); Carbon Dioxide 29 mmol/L (22-32); Chloride 100 mmol/L (98-107); Estimated Glomerular Filt Rate > 60 mL/min (>60); Globulin 3.5 g/dL (1.7-4.1); Glucose 107 mg/dL (80-110); HEMOLYSIS 22 (0-50); Lipase 61 U/L (23-300); Potassium 3.9 mmol/L (3.4-5.1); Sodium 141 mmol/L (137-145); Total Protein 7.9 g/dL (6.3-8.2)
--- NOTE | 2022-10-06 03:05 | PC.NURSE ---
pt seen walking out of ED, ROSAS Brannon went after pt to see if IV had been removed, unable to catch pt, pt did not say anything to anyone prior to leaving
== END 2022-10-06 03:05 | disposition left against medical advice (07) ==
PROVIDERS: Emergency Provider Emergency Medicine
DX: R10.11 Right upper quadrant pain (principal)
CPT/HCPCS: 36415; 71101; 80053; 83690; 85025; 93005; 93010; 99283

== ENCOUNTER 2022-10-15 08:06 | Emergency (ER) | payer OTHER, MEDICAID, SELFPAY ==
[2020-06-07 14:32] VITALS: BMI 29.5
[2022-10-15 08:18] VITALS: BP 189/97; PULSE 95; RESP 18; TEMP 36.3; O2SAT 99; BMI 28.4
--- NOTE | 2022-10-15 09:35 | ED_ITS ---
HPI - Ear Problem General Chief complaint: Ear Stated complaint: RT ear hurts t-1 Time Seen by Provider: 10/15/22 09:32 Source: patient Mode of arrival: Ambulatory Limitations: no limitations History of Present Illness HPI Narrative: This is a 62-year-old male with right ear pain for 1 day, patient states he had cough cold congestion, fevers and chills and myalgias and a little chest discomfort over the past week which has resolved. He still has some nasal congestion. Patient states he started having pain of his right ear and feels like it might be swollen painful when he pushes on the ear. He states no dr sullivan is noted no hearing changes. He tried some coconut oil on a cotton ball last night without any help. He had ear infections a long time ago but not persistently or frequently since then. He denies any daily medications, no known medical issues. Denies any surgeries. He denies tobacco use, occasional alcohol, uses marijuana denies other illicit. He does not currently have a primary care physician. Related Data Previous Rx's Medication Instructions Recorded aspirin 325 mg tablet,delayed 325 mg PO DAILY #30 tabs 06/08/20 release atorvastatin 20 mg tablet (Lipitor) 40 mg PO BEDTIME #30 tabs 06/08/20 cyclobenzaprine 10 mg tablet 10 mg PO TID PRN muscle spasm #14 10/19/20 tabs hydrocodone 5 mg-acetaminophen 325 1 tab PO Q4-6H PRN pain #10 tabs 10/19/20 mg tablet ketorolac 10 mg tablet 10 mg PO Q6H PRN pain #14 tabs 10/19/20 prednisone 10 mg tablet See Rx Instructions .Route 10/19/20 .COMPLEX #30 tabs amoxicillin 875 mg-potassium 1 tab PO BID #20 tabs 10/15/22 clavulanate 125 mg tablet tramadol 50 mg tablet 50 mg PO Q6H PRN pain #7 tabs 10/15/22 Allergies Allergy/AdvReac Type Severity Reaction Status Date / Time No Known Drug Allergies Allergy Verified 10/05/22 20:43 Review of Systems Review of Systems ROS Unobtainable: All systems reviewed & are unremarkable except as noted in HPI and below Patient History Medical History Hypertension Patient denies medical problems Family History Father Cancer Social History household members: significant other Smoking Status: Unknown if ever smoked alcohol intake: never Smoking Status: Unknown if ever smoked alcohol intake frequency: holidays/special occasions only Substance Use Type: marijuana Exam Narrative Exam Narrative: GEN: well nourished, well appearing male, alert and oriented x 3, patient appears to be in mild distress. HEENT: Atraumatic, pupils are equal round reactive to light, extraocular movements are intact, nares are clear, left TM is clear with no fluid, right TM is erythematous, bulge, no active drainage but there does appear to be a 1 or 2 mm hole at the 11 o'clock position, patient also has some slight erythema along the edge of canal close to the TM but not any swelling or extending outwards. No swelling of the external ear, patient has pain with palpation at the tragus. There is no conjunctival pallor. Throat is clear without any exudates, erythema, tonsillar enlargement or uvular deviation HEART: Regular rate and rhythm without murmur, clicks, rubs. No carotid bruits, pulses are equal in upper and lower extremities LUNGS:Lungs clear to auscultation, no wheezes, rales, crackles, chest moves symmetrically ABD:bowel sounds normal, soft, non-tender, no guarding, rebound, rigidity, no masses noted, no hepatosplenomegaly MSCL: Non-tender, no muscle atrophy, muscles strength 5/5 upper and lower extremities, full range of motion, normal gait NEURO:CN 2-12 intact, sensation normal SKIN: No rash, erythema or other skin changes noted. Initial Vital Signs Initial Vital Signs: Vital Signs Temperature 97.4 F L 10/15/22 08:18 Pulse Rate 95 H 10/15/22 08:18 Respiratory Rate 18 10/15/22 08:18 Blood Pressure 189/97 H 10/15/22 08:18 Pulse Oximetry 99 10/15/22 08:18 Oxygen Delivery Method 10/15/22 08:18 Course Orders Ordered: Discontinued Medications Acetaminophen (Acetaminophen 325 Mg Tablet) 975 mg PO NOW ONE Stop: 10/15/22 09:46 Last Admin: 10/15/22 09:53 Dose: 975 mg Documented By: LETA Amoxicillin/Clavulanate Potassium (Amoxicillin/Clav 875/125 Mg) 1 tab PO NOW ONE Stop: 10/15/22 09:46 Last Admin: 10/15/22 09:52 Dose: 1 tab Documented By: LETA Vital Signs Vital signs: Vital Signs - 8 hr 10/15/22 08:18 Temperature 97.4 F L Pulse Rate 95 H Respiratory Rate 18 Blood Pressure 189/97 H Pulse Oximetry 99 Oxygen Delivery Method Room Air Medical Decision Making MDM Narrative Medical decision making narrative: This is a 62-year-old male with otitis media looks like he may have very small perforation to his tympanic membrane. Started on oral antibiotics, Tylenol ibuprofen for pain here, script for short-acting pain medication as an outpatient, ENT referral for follow-up we discussed that if the whole heels will not require any intervention if stays open or causing other issues patient might need surgery. We did discuss not to submerge his head in any water, antibiotics, return precautions all questions answered. Discharge Plan Departure Patient Disposition: Home Clinical Impression: Acute otitis media of right ear with perforated tympanic membrane Instructions: Middle Ear Infection, Ruptured Eardrum Activity Restrictions/Additional Instructions: Please follow-up with primary care or ENT for recheck of your eardrum, you have an infection of the right ear drum it appears to be a very small perforation of the tympanic membrane or eardrum. Referral is included below for ENT. Call set up an appointment. I hope you start to feel better soon you should start to notice a difference in your pain after 24 hours of antibiotics. Take antibiotics until completely gone. You may take Tylenol up to a 1000 mg and/or ibuprofen up to 600 mg every 6 hours as needed for pain. If in adequate you can take Ultram or tramadol 1-2 tablets every 6 hours as needed. This medication can make you sleepy do not drive, perform hazardous activities or make any major decisions while taking it. This medication will make you constipated please take a stool softener once to twice daily until s tools are soft and regular. Prescription sent to [facility] in [place] Please return for fevers, rapidly worsening pain, persistent vomiting, new swelling of your ear, swelling of her face, neck or other changes. Prescriptions: New amoxicillin-pot clavulanate 875-125 mg tablet 1 tab PO BID Qty: 20 0RF tramadol 50 mg tablet 50 mg PO Q6H PRN (Reason: pain) Qty: 7 0RF No Action atorvastatin [Lipitor] 20 mg Tablet 40 mg PO BEDTIME Qty: 30 0RF aspirin 325 mg Tablet,Delayed Release (Dr/Ec) 325 mg PO DAILY Qty: 30 0RF cyclobenzaprine 10 mg tablet 10 mg PO TID PRN (Reason: muscle spasm) Qty: 14 0RF prednisone 10 mg tablet See Rx Instructions .ROUTE .COMPLEX Qty: 30 0RF Rx Instructions: Day 1,2,3: 40mg PO Daily Day 4,5,6: 30mg PO Daily Day 7,8,9: 20mg PO Daily Day 10,11,12: 10mg PO Daily #30 hydrocodone-acetaminophen 5-325 mg tablet 1 tab PO Q4-6H PRN (Reason: pain) Qty: 10 0RF ketorolac 10 mg tablet 10 mg PO Q6H PRN (Reason: pain) Qty: 14 0RF Referrals: Nikolas Reyes MD [Physician] - Miscellaneous,DoctorMD [Primary Care Provider] - Visit Report Forms: Patient Portal/API
[2022-10-15] MEDS: AMOXICILLIN/CLAV 875/125 MG 1 TAB PO (09:52)
[2022-10-15] MEDS: ACETAMINOPHEN 325 MG TABLET 975 MG PO (09:53)
[2022-10-15 09:55] VITALS: BP 180/90; PULSE 90; RESP 18; O2SAT 98
== END 2022-10-15 09:55 | disposition home or self-care (01) ==
PROVIDERS: Emergency Provider Emergency Medicine
DX: H66.91 Otitis media, unspecified, right ear (principal); H72.91 Unspecified perforation of tympanic membrane, right ear; Z79.899 Other long term (current) drug therapy
CPT/HCPCS: 99283

== ENCOUNTER 2023-12-07 15:43 | Emergency (ER) | payer OTHER, MEDICAID, SELFPAY ==
[2020-06-07 14:32] VITALS: BMI 29.5
[2023-12-07 15:59] VITALS: BP 150/85; PULSE 90; RESP 14; TEMP 37.1; O2SAT 98; BMI 30.1
--- NOTE | 2023-12-07 17:31 | DI.RAD.S_ITS ---
PROCEDURE: XR HIP W PEL IF DONE LT 2V INDICATIONS: pain with ambulating TECHNIQUE: AP pelvis with lateral view(s) of the left hip(s). COMPARISON: None. FINDINGS: Bones: No fractures or dislocations. Moderate left worse than right bilateral hip joint osteoarthritic changes are seen with superior joint space narrowing, subchondral sclerosis and marginal osteophyte formation. No evidence of avascular necrosis of femoral head. Pelvic ring appears intact. No suspicious bony lesions. Degenerative disc disease in visualized lower lumbar spine is seen. Soft tissues: The visualized bowel gas pattern is normal. No suspicious soft tissue calcifications. IMPRESSION: Moderate left worse than right bilateral hip joint osteoarthritis. No acute pelvic or hip fracture. No evidence of avascular necrosis. Dictated by: Kevin Morris M.D. on 12/07/2023 at 18:09 Approved by: Kevin Morris M.D. on 12/07/2023 at 18:09
[2023-12-07 17:32] VITALS: BP 152/89; PULSE 88; RESP 18; O2SAT 100
--- NOTE | 2023-12-07 18:16 | ED_ITS ---
HPI - Extremity Injury (Lower) <Marily Solorio PA-C - Last Filed: 12/08/23 10:45> General Chief Complaint: Extremity Injury, Lower Stated Complaint: Lt hip pain, fall about a month ago Time Seen by Provider: 12/07/23 17:39 Source: patient Mode of arrival: Ambulatory History of Present Illness HPI Narrative: 63-year-old male presents with concern for left hip pain/left buttock pain. Patient states that he did have a fall 3-4 weeks ago he does not remember the exact timing he was on a slope of [place] and slipped and landed on his left hip/buttock on top of some piping. He did not get seen for it at the time as he thought it would go away on its own but he feels like it has gradually been worsening certainly has not improved over the past 3-4 weeks since his injury. He describes the pain as a sharp pain that is very intense and intermittent happens with certain movements and is usually worse with bending his leg up or lifting his leg. He says it is mostly in his left low buttock/hip and it does not radiate down his leg. He denies a history of sciatica. He denies any other complaints concerns or injuries and states he has not previously been seen for this. He has not noted any leg weakness or numbness or tingling of his lower extremities. Related Data Previous Rx's Medication Instructions Recorded aspirin 325 mg tablet,delayed 325 mg PO DAILY #30 tabs 06/08/20 release atorvastatin 20 mg tablet (Lipitor) 40 mg (2 x 20 mg) PO BEDTIME #30 06/08/20 tabs cyclobenzaprine 10 mg tablet 10 mg PO TID PRN muscle spasm #14 10/19/20 tabs hydrocodone 5 mg-acetaminophen 325 1 tab PO Q4-6H PRN pain #10 tabs 10/19/20 mg tablet ketorolac 10 mg tablet 10 mg PO Q6H PRN pain #14 tabs 10/19/20 prednisone 10 mg tablet See Rx Instructions .Route 10/19/20 .COMPLEX #30 tabs amoxicillin 875 mg-potassium 1 tab PO BID #20 tabs 10/15/22 clavulanate 125 mg tablet tramadol 50 mg tablet 50 mg PO Q6H PRN pain #7 tabs 10/15/22 baclofen 10 mg tablet 10 mg PO TID PRN muscle spasm 10 12/07/23 days #30 tabs prednisone 20 mg tablet 40 mg (2 x 20 mg) PO DAILY 5 days 12/07/23 #10 tabs Allergies Allergy/AdvReac Type Severity Reaction Status Date / Time No Known Drug Allergies Allergy Verified 10/05/22 20:43 Review of Systems <Marily Solorio PA-C - Last Filed: 12/08/23 10:45> Review of Systems Narrative: See HPI Patient History <Marily Solorio PA-C - Last Filed: 12/08/23 10:45> Medical History Hypertension Patient denies medical problems Family History Father Cancer Social History household members: significant other Smoking Status: Unknown if ever smoked alcohol intake: never Smoking Status: Unknown if ever smoked alcohol intake frequency: holidays/special occasions only Substance Use Type: marijuana Exam <Marily Solorio PA-C - Last Filed: 12/08/23 10:45> Narrative Exam Narrative: GENERAL: 63 year old patient appears stated age. Well-developed patient, in mild distress. HEAD: Atraumatic. Normocephalic. EYES: Pupils equal round and reactive. Extraocular motions intact. No scleral icterus. No injection or drainage. ENT: Nose without bleeding, purulent drainage. Airway patent. NECK: Trachea midline. Non tender CARDIOVASCULAR: Regular rate and rhythm without murmurs, gallops, or rubs. RESPIRATORY: Clear to auscultation. Breath sounds equal bilaterally. No wheezes, rales, or rhonchi. GASTROINTESTINAL: Abdomen protruberant nondistended. EXTREMITIES: Patient has increased left buttock pain at the sciatic nerve exit with flexion and extension at the knee active. Slight increased discomfort with flexion and extension of the hip. There is very tight muscle with possible muscle spasm present in the left mid-upper buttock, this area is also tender without erythema. There is mild discomfort with palpation over the left trochanter. No edema or joint tenderness. Distal pulses are intact. BACK: There is no midline tenderness, Nontender without deformity or crepitance. No flank tenderness. NEURO: AOx3. SKIN: No rash or erythema of visible areas Initial Vital Signs Initial Vital Signs: Vital Signs Temperature 98.8 F 12/07/23 15:59 Pulse Rate 90 12/07/23 15:59 Respiratory Rate 14 12/07/23 15:59 Blood Pressure 150/85 H 12/07/23 15:59 Pulse Oximetry 98 12/07/23 15:59 Oxygen Delivery Method Room Air 12/07/23 15:59 <Naida Aparicio DO - Last Filed: 12/10/23 07:51> Initial Vital Signs Initial Vital Signs: Vital Signs Temperature 98.8 F 12/07/23 15:59 Pulse Rate 90 12/07/23 15:59 Respiratory Rate 14 12/07/23 15:59 Blood Pressure 150/85 H 12/07/23 15:59 Pulse Oximetry 98 12/07/23 15:59 Oxygen Delivery Method Room Air 12/07/23 15:59 Course <Marily Solorio PA-C - Last Filed: 12/08/23 10:45> Orders Ordered: ED Orders 12/07/23 17:31 XR hip w pel if done LT 2V Stat Vital Signs Vital signs: Vital Signs - 8 hr 12/07/23 15:59 12/07/23 17:32 Temperature 98.8 F Pulse Rate 90 88 Respiratory Rate 14 18 Blood Pressure 150/85 H 152/89 H Pulse Oximetry 98 100 Oxygen Delivery Method Room Air Room Air <Naida Aparicio DO - Last Filed: 12/10/23 07:51> Orders Ordered: ED Orders 12/07/23 17:31 XR hip w pel if done LT 2V Stat Vital Signs Vital signs: Vital Signs - 8 hr 12/07/23 15:59 12/07/23 17:32 Temperature 98.8 F Pulse Rate 90 88 Respiratory Rate 14 18 Blood Pressure 150/85 H 152/89 H Pulse Oximetry 98 100 Oxygen Delivery Method Room Air Room Air MDM - Extremity Injury (Lower) <GLEN Frank Last Filed: 12/08/23 10:45> Differential Diagnosis Differential diagnosis: Likely other (osteoarthritis, sciatica) Medical Records Attestation: I reviewed the patient's medical records. Imaging Data Extremity x-ray #1: My Impression: Agree with Radiology interpretation Radiologist's Impression: [address] [address] XRay Report Signed Patient: Leland Travis MR#: [id number] : 1960 Acct:[id number] Age/Sex: 63 / M Date of Service: 12/07/23 Loc: ED Accession Number: [id number] Procedure: XR hip w pel if done LT 2V Ordering Provider: Marily Solorio P.A-C PROCEDURE: XR HIP W PEL IF DONE LT 2V INDICATIONS: pain with ambulating TECHNIQUE: AP pelvis with lateral view(s) of the left hip(s). COMPARISON: None. FINDINGS: Bones: No fractures or dislocations. Moderate left worse than right bilateral hip joint osteoarthritic changes are seen with superior joint space narrowing, subchondral sclerosis and marginal osteophyte formation. No evidence of avascular necrosis of femoral head. Pelvic ring appears intact. No suspicious bony lesions. Degenerative disc disease in visualized lower lumbar spine is seen. Soft tissues: The visualized bowel gas pattern is normal. No suspicious soft tissue calcifications. IMPRESSION: Moderate left worse than right bilateral hip joint osteoarthritis. No acute pelvic or hip fracture. No evidence of avascular necrosis. Dictated by: Kevin Morris M.D. on 12/07/2023 at 18:09 Approved by: Kevin Morris M.D. on 12/07/2023 at 18:09 [facility] Narrative Medical decision making narrative: This is a 63-year-old male who presents with concern for 3-4 weeks of left hip discomfort worse with walking after he sustained a fall on a slope onto some hard pipes in the ground. Patient's exam is suggestive of sciatica, muscle spasm, his x-ray of hip/pelvis returned showing osteoarthritis more prominent on the left, also some disc degeneration of the lumbar region. Shared this with the patient, he has no red flag findings in his ambulating without obvious distress. He is placed on a short course of prednisone and provided with baclofen muscle relaxer as I do think he has tight muscles present in his buttock that make me contributing to his discomfort. He is advised to monitor for new or worsening symptoms, follow up with his primary care provider and consider seeing orthopedics for further evaluation. Return precautions provided, follow-up plan discussed, all questions answered. Discharge Plan Departure Patient Disposition: Home Clinical Impression: Muscle spasm Osteoarthritis Qualifiers: Osteoarthritis location: hip Osteoarthritis type: unspecified Laterality: left Qualified Code(s): M16.12 - Unilateral primary osteoarthritis, left hip Acute hip pain Qualifiers: Laterality: left Qualified Code(s): M25.552 - Pain in left hip Activity Restrictions/Additional Instructions: *You have been diagnosed with [osteoarthritic changes and bone spurs in your hip joint, muscle spasm, possibly sciatic nerve impingement] *What to do: *Please continue to take your regular medications as directed. [2 ] New medication prescriptions sent to your pharmacy: [Prednisone, baclofen] [ ] New medication written as a paper prescription [ ] No new medications given *Please follow up with your primary care provider in 2-3 days, call for an appointment. Let them know you were seen in the Emergency Department and that we ask that you be seen in follow up. We will electronically transmit a record of today's note if your PCP is in our system. You had a fall 3 or 4 weeks ago onto her left hip and came in today with concern that it has not improved at all and he has been having pain with ambulation. We did perform an x-ray today which shows that your pelvis and hip bones are intact but he do have some bone spurs and narrowing of the joint space and some osteoarthritis present. This may explain some of your pain. On exam you also have some findings suggestive of sciatic nerve impingement, and you also have some tight muscles that may explain some of your pains as muscle spasms can cause the type of pains you have been having. I have prescribed a muscle relaxer as well as a short course of steroid medication, prednisone. I strongly encourage you to follow up with your primary care provider and you may want to see an orthopedic provider as well I have listed 1 orthopedic provider name here but recommend you see your primary care and discuss this with them. In general I recommend Tylenol for pain you can take up to the max daily allow dose on a daily basis if needed as listed on the bottle for an adult. *If you do not have a primary care provider please contact the [facility] Resource line at [phone]. They will ask some questions about your medical history and help get you set up with a doctor in the community. *Return to Emergency Department if you should have any new, worsening or concerning symptoms, such as [fever greater than 101 F, shaking chills, worsening pain, persistent vomiting or other bothersome symptoms] Prescriptions: New baclofen 10 mg tablet 10 mg PO TID PRN (Reason: muscle spasm) 10 Days Qty: 30 1RF prednisone 20 mg tablet 40 mg PO DAILY 5 Days Qty: 10 0RF No Action amoxicillin-pot clavulanate 875-125 mg tablet 1 tab PO BID Qty: 20 0RF tramadol 50 mg tablet 50 mg PO Q6H PRN (Reason: pain) Qty: 7 0RF atorvastatin [Lipitor] 20 mg Tablet 40 mg PO BEDTIME Qty: 30 0RF aspirin 325 mg Tablet,Delayed Release (Dr/Ec) 325 mg PO DAILY Qty: 30 0RF cyclobenzaprine 10 mg tablet 10 mg PO TID PRN (Reason: muscle spasm) Qty: 14 0RF prednisone 10 mg tablet See Rx Instructions .ROUTE .COMPLEX Qty: 30 0RF Rx Instructions: Day 1,2,3: 40mg PO Daily Day 4,5,6: 30mg PO Daily Day 7,8,9: 20mg PO Daily Day 10,11,12: 10mg PO Daily #30 hydrocodone-acetaminophen 5-325 mg tablet 1 tab PO Q4-6H PRN (Reason: pain) Qty: 10 0RF ketorolac 10 mg tablet 10 mg PO Q6H PRN (Reason: pain) Qty: 14 0RF Referrals: Miscellaneous,Doctor, MD [Primary Care Provider] - Stand Alone Forms: Patient Portal/API ED Sign-out <Naida Aparicio DO - Last Filed: 12/10/23 07:51> Cosign ED Attending Matthew Attestation: I was available for consultation.
== END 2023-12-07 18:32 | disposition home or self-care (01) ==
PROVIDERS: Emergency Provider Student in an Organized Health Care Education/Training Program
DX: M25.552 Pain in left hip (principal); M16.12 Unilateral primary osteoarthritis, left hip; M62.838 Other muscle spasm
CPT/HCPCS: 73502; 99283

== ENCOUNTER 2024-04-24 20:13 | Emergency (ER) | payer OTHER, MEDICAID, SELFPAY ==
[2020-06-07 14:32] VITALS: BMI 29.5
[2024-04-24 20:16] VITALS: BP 174/91; PULSE 89; RESP 16; TEMP 36.9; O2SAT 99; BMI 30.1
--- NOTE | 2024-04-24 20:32 | DI.US.S_ITS ---
PROCEDURE: US SCROTUM INDICATIONS: left testicle pain TECHNIQUE: Real-time scanning was performed of the scrotum and testicles, with image documentation. Color and pulse Doppler interrogation was performed of both testicles. COMPARISON: None. FINDINGS: Right: Testicle is normal in size at 5.1 x 2.2 x 3.3 cm, and homogenous in echotexture. Epididymis is normal in overall size and morphology. No hydrocele or varicoceles. Overlying scrotal skin is normal in thickness. Left: Testicle is normal in size at 4.7 x 2.3 x 3.3 cm, and homogeneous in echotexture. Epididymis is normal in overall size and morphology. No hydrocele or varicoceles. Overlying scrotal skin is normal in thickness. Doppler: Color and pulse Doppler demonstrate normal and symmetric arterial flow in both testicles. No fluid collection, hernia, or mass identified in the left groin area of palpation. IMPRESSION: No evidence of acute torsion. No hyperemic appearance to suggest acute inflammation. Dictated by: Alban Mascorro M.D. on 04/24/2024 at 21:10 Approved by: Alban Mascorro M.D. on 04/24/2024 at 21:11
--- NOTE | 2024-04-24 22:26 | ED_ITS ---
HPI - Male Genitourinary General Chief complaint: Urogenital-Male Stated complaint: possible groin stain Time Seen by Provider: 04/24/24 20:34 Source: patient Mode of arrival: Wheelchair History of Present Illness HPI Narrative: Patient is a healthy 64-year-old male who presents today with left groin pain and strain. Reports that he was pulling roots out of the ground and had sudden in onset of left groin pain. Testicular pain does not feel a bulge. No other symptoms. He does not go the doctor and takes no medication besides supplements. Related Data Previous Rx's Medication Instructions Recorded aspirin 325 mg tablet,delayed 325 mg PO DAILY #30 tabs 06/08/20 release atorvastatin 20 mg tablet (Lipitor) 40 mg (2 x 20 mg) PO BEDTIME #30 06/08/20 tabs cyclobenzaprine 10 mg tablet 10 mg PO TID PRN muscle spasm #14 10/19/20 tabs hydrocodone 5 mg-acetaminophen 325 1 tab PO Q4-6H PRN pain #10 tabs 10/19/20 mg tablet ketorolac 10 mg tablet 10 mg PO Q6H PRN pain #14 tabs 10/19/20 prednisone 10 mg tablet See Rx Instructions .Route 10/19/20 .COMPLEX #30 tabs amoxicillin 875 mg-potassium 1 tab PO BID #20 tabs 10/15/22 clavulanate 125 mg tablet tramadol 50 mg tablet 50 mg PO Q6H PRN pain #7 tabs 10/15/22 baclofen 10 mg tablet 10 mg PO TID PRN muscle spasm 10 12/07/23 days #30 tabs Allergies Allergy/AdvReac Type Severity Reaction Status Date / Time No Known Drug Allergies Allergy Verified 04/24/24 20:30 Patient History Medical History Hypertension Patient denies medical problems Family History Father Cancer Social History household members: significant other Smoking Status: Unknown if ever smoked alcohol intake: never Smoking Status: Unknown if ever smoked alcohol intake frequency: holidays/special occasions only Substance Use Type: marijuana Exam Initial Vital Signs Initial Vital Signs: Vital Signs Temperature 98.5 F 04/24/24 20:16 Pulse Rate 89 04/24/24 20:16 Respiratory Rate 16 04/24/24 20:16 Blood Pressure 174/91 H 04/24/24 20:16 Pulse Oximetry 99 04/24/24 20:16 Oxygen Delivery Method Room Air 04/24/24 20:16 GENERAL: Alert well-appearing 64-year-old male CARDIOVASCULAR: peripheral pulses in tact, cap refill <2 sec RESPIRATORY: No respiratory distress, speaks in full sentences without difficu lty ABDOMEN: Soft, nontender, no guarding or rebound : Nurse Ambrocio in room for examination. No obvious bulging in the left groin no hernia appreciated on testicular exam no significant testicular pain bilaterally no swelling no edema no erythema EXTREMITIES: Normal range of motion, no clubbing or edema. Neurovascularly intact NEUROLOGICAL: Cranial nerves II through XII grossly intact. Normal gait and speech. SKIN: Warm, dry, no petechiae, no rashes or lesions. Course Orders Ordered: ED Orders 04/24/24 20:32 US scrotum Stat Discontinued Medications Acetaminophen (Acetaminophen 325 Mg Tablet) 975 mg PO NOW ONE Stop: 04/24/24 22:32 Last Admin: 04/24/24 22:41 Dose: 975 mg Documented By: JACINTO Ibuprofen (Ibuprofen 400 Mg Tablet) 800 mg PO NOW ONE Stop: 04/24/24 22:32 Last Admin: 04/24/24 22:44 Dose: Not Given Documented By: JACINTO Vital Signs Vital signs: Vital Signs - 8 hr 04/24/24 20:16 04/24/24 22:36 04/24/24 22:44 Temperature 98.5 F Pulse Rate 89 82 81 Respiratory Rate 16 12 16 Blood Pressure 174/91 H 148/75 H 143/83 H Pulse Oximetry 99 99 98 Oxygen Delivery Method Room Air Room Air Room Air MDM - Male Genitourinary Imaging Data US scrotum: Radiologist's Impression: PROCEDURE: US SCROTUM INDICATIONS: left testicle pain TECHNIQUE: Real-time scanning was performed of the scrotum and testicles, with image documentation. Color and pulse Doppler interrogation was performed of both testicles. COMPARISON: None. FINDINGS: Right: Testicle is normal in size at 5.1 x 2.2 x 3.3 cm, and homogenous in echotexture. Epididymis is normal in overall size and morphology. No hydrocele or varicoceles. Overlying scrotal skin is normal in thickness. Left: Testicle is normal in size at 4.7 x 2.3 x 3.3 cm, and homogeneous in echotexture. Epididymis is normal in overall size and morphology. No hydrocele or varicoceles. Overlying scrotal skin is normal in thickness. Doppler: Color and pulse Doppler demonstrate normal and symmetric arterial flow in both testicles. No fluid collection, hernia, or mass identified in the left groin area of palpation. IMPRESSION: No evidence of acute torsion. No hyperemic appearance to suggest acute inflammation. Dictated by: Alban Mascorro M.D. on 04/24/2024 at 21:10 Approved by: Alban Mascorro M.D. on 04/24/2024 at 21: MDM Narrative Medical decision making narrative: Patient is 64-year-old male presents today with left groin strain. No hernia appreciated on exam no evidence of testicular torsion or hydrocele on ultrasound . Patient is given Motrin and Tylenol here in the ED supportive care only. Discharge Plan Departure Patient Disposition: Home Clinical Impression: Strain of left groin Instructions: DI for Groin Strain Activity Restrictions/Additional Instructions: *You have been diagnosed with left groin strain *What to do: Increase activity as tolerated recommend no heavy lifting may try ice. At this time no evidence of hernia *Continue to take medications as directed Motrin 600 mg every 6 hours for [id number] pain Tylenol 650 mg every 4-6 hours if needed for [id number] pain *Follow up with your primary care provider in 2-3 days or call [phone] *Return to ER if you should have increasing pain swelling bulge that is not reducible or any new, worsening or concerning symptoms Prescriptions: No Action amoxicillin-pot clavulanate 875-125 mg tablet 1 tab PO BID Qty: 20 0RF tramadol 50 mg tablet 50 mg PO Q6H PRN (Reason: pain) Qty: 7 0RF baclofen 10 mg tablet 10 mg PO TID PRN (Reason: muscle spasm) 10 Days Qty: 30 1RF atorvastatin [Lipitor] 20 mg Tablet 40 mg PO BEDTIME Qty: 30 0RF aspirin 325 mg Tablet,Delayed Release (Dr/Ec) 325 mg PO DAILY Qty: 30 0RF cyclobenzaprine 10 mg tablet 10 mg PO TID PRN (Reason: muscle spasm) Qty: 14 0RF prednisone 10 mg tablet See Rx Instructions .ROUTE .COMPLEX Qty: 30 0RF Rx Instructions: Day 1,2,3: 40mg PO Daily Day 4,5,6: 30mg PO Daily Day 7,8,9: 20mg PO Daily Day 10,11,12: 10mg PO Daily #30 hydrocodone-acetaminophen 5-325 mg tablet 1 tab PO Q4-6H PRN (Reason: pain) Qty: 10 0RF ketorolac 10 mg tablet 10 mg PO Q6H PRN (Reason: pain) Qty: 14 0RF Referrals: Miscellaneous,Doctor, MD [Primary Care Provider] - Stand Alone Forms: Patient Portal/API
[2024-04-24 22:36] VITALS: BP 148/75; PULSE 82; RESP 12; O2SAT 99
[2024-04-24] MEDS: ACETAMINOPHEN 325 MG TABLET 975 MG PO (22:41)
[2024-04-24 22:44] VITALS: BP 143/83; PULSE 81; RESP 16; O2SAT 98
== END 2024-04-24 22:46 | disposition home or self-care (01) ==
PROVIDERS: Emergency Provider Emergency Medicine
DX: S39.011A Strain of muscle, fascia and tendon of abdomen, initial encounter (principal); X50.9XXA Other and unspecified overexertion or strenuous movements or postures, initial encounter; Y93.H2 Activity, gardening and landscaping
CPT/HCPCS: 76870; 99283

== ENCOUNTER 2024-05-10 02:31 | Emergency (ER) | payer MEDICARE, SELFPAY ==
[2020-06-07 14:32] VITALS: BMI 29.5
[2024-05-10] VITALS (31 sets, daily range): BP systolic 123–167; BP diastolic 80–104; PULSE 84–109; RESP 16–29; TEMP 36.6; O2SAT 89–100; BMI 30.1
--- NOTE | 2024-05-10 02:48 | EKG_ITS ---
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
--- NOTE | 2024-05-10 03:09 | DI.RAD.S_ITS ---
PROCEDURE: XR CHEST 1V INDICATIONS: dyspnea TECHNIQUE: One view of the chest was acquired. COMPARISON: [facility], CR, XR CHEST 1V, 11/23/2021, 12:48. FINDINGS: Surgical changes and devices: None. Lungs and pleura: Lungs are clear. No pleural effusions or pneumothorax. Mediastinum: Mediastinal contours appear normal. Heart size is normal. Bones and chest wall: No suspicious bony lesions. Overlying soft tissues appear unremarkable. IMPRESSION: No acute cardiopulmonary pathology. Dictated by: Kevin Morris M.D. on 05/10/2024 at 8:01 Approved by: Kevin Morris M.D. on 05/10/2024 at 8:01
--- NOTE | 2024-05-10 03:10 | DI.CT.S_ITS ---
PROCEDURE: CT ANGIO CHEST PE PROTOCOL INDICATIONS: DYSPNEA, CHEST PAIN, LOW O2 TECHNIQUE: After the administration of intravenous contrast, 2 mm thick sections acquired from the pulmonary apices to the posterior costophrenic angles. 3-dimensional maximum intensity projection (MIP) coronal and sagittal reformats were then acquired through the thorax. For radiation dose reduction, the following was used: automated exposure control, adjustment of mA and/or kV according to patient size. COMPARISON: [facility], CT, CT ANGIO CHEST PE PROTOCOL, 11/23/2021, 14:53. FINDINGS: Image quality: Diagnostic. Pulmonary arteries: Pulmonary arteries are normal in size. Intraluminal filling defects are noted in main pulmonary artery bifurcation extending to bilateral segmental, and subsegmental branches of bilateral pulmonary arteries consistent with extensive bilateral pulmonary emboli. Lower Neck: No enlarged lymph nodes. Thyroid: No thyroid nodules which require sonographic follow up, per consensus guidelines. Axillae: No enlarged lymph nodes. Chest Wall: Unremarkable. Bones: Unremarkable. Lungs and Pleura: No pneumothorax or pleural effusions. 2 mm posterior right apical nodule series 7 image 64. Dependent atelectasis in posterior aspect of bilateral lung jon are seen. Central and peripheral airway is patent. No consolidation or suspicious nodules. Heart: Heart size is normal. No pericardial effusion. There is suggestion of early right heart strain. Thoracic Vessels: No aortic aneurysm. Mediastinum and Tish: No enlarged lymph nodes. Esophagus: No wall thickening. No hiatal hernia. Upper Abdomen: Visualized upper abdomen solid organs and bowel loops appear normal. IMPRESSION: 1. Extensive central, segmental and subsegmental bilateral pulmonary emboli. Early signs of right heart strain. 2. No thoracic aortic aneurysm or dissection. No mediastinal or hilar lymphadenopathy. 3. Dependent atelectasis in posterior aspect of bilateral lung jon. Tiny right apical 2 mm nodule. If indicated, follow-up CT chest in 12 months can be done for evaluation of stability. No significant discrepancies from preliminary reading. Dictated by: Kevin Morris M.D. on 05/10/2024 at 8:04 Approved by: Kevin Morris M.D. on 05/10/2024 at 8:09
--- NOTE | 2024-05-10 03:10 | ED_ITS ---
HPI - Chest Pain <Zuleika Sandoval MD - Last Filed: 05/11/24 03:51> General Chief Complaint: Chest Pain Stated Complaint: chest pain Time Seen by Provider: 05/10/24 02:32 Source: patient Mode of arrival: Ambulatory Limitations: no limitations History of Present Illness HPI narrative: 64-year-old male with no reported past medical history presents for sudden onset chest pain and shortness of breath since 10:00 a.m. (approximately 15hrs ago). Patient states that he was in an argument with someone when symptoms began. He thought that he was anxious due to the argument, however symptoms persisted and seemed to be getting worse. He states that he was gasping for air on the drive up to the hospital and became very winded when walking back from the parking lot to triage. Patient has not seen a primary care doctor in many years. Denies history of asthma or COPD, denies history of cigarette smoking. Related Data Previous Rx's Medication Instructions Recorded aspirin 325 mg tablet,delayed 325 mg PO DAILY #30 tabs 06/08/20 release atorvastatin 20 mg tablet (Lipitor) 40 mg (2 x 20 mg) PO BEDTIME #30 06/08/20 tabs cyclobenzaprine 10 mg tablet 10 mg PO TID PRN muscle spasm #14 10/19/20 tabs hydrocodone 5 mg-acetaminophen 325 1 tab PO Q4-6H PRN pain #10 tabs 10/19/20 mg tablet ketorolac 10 mg tablet 10 mg PO Q6H PRN pain #14 tabs 10/19/20 prednisone 10 mg tablet See Rx Instructions .Route 10/19/20 .COMPLEX #30 tabs amoxicillin 875 mg-potassium 1 tab PO BID #20 tabs 10/15/22 clavulanate 125 mg tablet tramadol 50 mg tablet 50 mg PO Q6H PRN pain #7 tabs 10/15/22 baclofen 10 mg tablet 10 mg PO TID PRN muscle spasm 10 12/07/23 days #30 tabs Allergies Allergy/AdvReac Type Severity Reaction Status Date / Time No Known Drug Allergies Allergy Verified 04/24/24 20:30 Review of Systems <Zuleika Sandoval MD - Last Filed: 05/11/24 03:51> Review of Systems Narrative: See HPI Patient History <Zuleika Sandoval MD - Last Filed: 05/11/24 03:51> Medical History Hypertension Patient denies medical problems Family History Father Cancer Social History household members: significant other Smoking Status: Unknown if ever smoked alcohol intake: never Smoking Status: Unknown if ever smoked alcohol intake frequency: holidays/special occasions only Substance Use Type: marijuana Exam <Zuleika Sandoval MD - Last Filed: 05/11/24 03:51> Initial Vital Signs Initial Vital Signs: Vital Signs Pulse Rate 108 H 05/10/24 02:47 Respiratory Rate 24 05/10/24 02:47 Pulse Oximetry 89 L 05/10/24 02:47 Const: Awake, alert, ill-appearing, nontoxic Cardiac: Tachycardia, regular rhythm RESP: Mild shortness of breath at end of long sentences, clear bilaterally GI: Soft, nontender, nondistended Skin: Warm, Dry, intact, no rashes Neuro: AO x3, CN II-XII grossly intact, moves all extremities <Jeffrey Crocker DO - Last Filed: 05/10/24 13:52> Initial Vital Signs Initial Vital Signs: Vital Signs Pulse Rate 108 H 05/10/24 02:47 Respiratory Rate 24 05/10/24 02:47 Pulse Oximetry 89 L 05/10/24 02:47 Course <Zuleika Sandoval MD - Last Filed: 05/11/24 03:51> Orders Ordered: Discontinued Medications Enoxaparin Sodium (Enoxaparin 100 Mg/Ml Syringe) 100 mg SUBCUT NOW ONE Stop: 05/10/24 04:31 Last Admin: 05/10/24 04:34 Dose: 100 mg Documented By: Sodium Chloride (Normal Saline 0.9%) 1,000 mls @ 125 mls/hr IV CONT PREETI Last Infusion: 05/10/24 14:10 Dose: 125 mls/hr Documented By: Admin: 05/10/24 14:03 Dose: 125 mls/hr Documented By: PERLA Ondansetron HCl (Ondansetron 4 Mg/2 Ml Inj) 4 mg IV NOW ONE Stop: 05/10/24 11:28 Last Admin: 05/10/24 11:30 Dose: 4 mg Documented By: PERLA Vital Signs Vital signs: Vital Signs - 8 hr 05/10/24 07:00 05/10/24 07:00 05/10/24 07:30 Pulse Rate 92 H 88 Respiratory Rate 17 20 Blood Pressure 167/93 H Pulse Oximetry 99 100 Oxygen Delivery Method Nasal Cannula Nasal Cannula Oxygen Flow Rate 2 05/10/24 07:30 05/10/24 08:00 05/10/24 08:16 Pulse Rate 91 H 89 Respiratory Rate 23 22 Blood Pressure 157/96 H Pulse Oximetry 98 96 Oxygen Delivery Method Nasal Cannula Oxygen Flow Rate 2 05/10/24 08:30 05/10/24 09:00 05/10/24 09:25 Pulse Rate 90 89 Respiratory Rate Blood Pressure 142/91 H 155/104 H Pulse Oximetry 97 98 100 Oxygen Delivery Method Nasal Cannula Nasal Cannula Nasal Cannula Oxygen Flow Rate 2 2 05/10/24 09:30 05/10/24 09:31 05/10/24 09:32 Pulse Rate 87 Respiratory Rate 20 Blood Pressure 143/86 H Pulse Oximetry 99 94 Oxygen Delivery Method Room Air Room Air Oxygen Flow Rate 05/10/24 10:00 05/10/24 10:00 05/10/24 10:30 Pulse Rate 90 89 Respiratory Rate 22 21 Blood Pressure 136/87 Pulse Oximetry 95 Oxygen Delivery Method Oxygen Flow Rate 05/10/24 10:31 05/10/24 10:31 05/10/24 11:00 Pulse Rate 86 93 H Respiratory Rate 20 28 H Blood Pressure 164/97 H Pulse Oximetry 95 93 Oxygen Delivery Method Room Air Room Air Oxygen Flow Rate 05/10/24 11:26 05/10/24 11:26 05/10/24 11:30 Pulse Rate 87 91 H Respiratory Rate 21 23 Blood Pressure 143/92 H Pulse Oximetry 96 97 Oxygen Delivery Method Nasal Cannula Oxygen Flow Rate 1 05/10/24 11:30 05/10/24 11:35 05/10/24 12:00 Pulse Rate Respiratory Rate Blood Pressure 155/96 H 148/90 H Pulse Oximetry 95 Oxygen Delivery Method Nasal Cannula Oxygen Flow Rate 1 05/10/24 12:00 05/10/24 12:30 05/10/24 12:30 Pulse Rate 85 87 Respiratory Rate 20 23 Blood Pressure 167/95 H Pulse Oximetry 93 94 Oxygen Delivery Method Nasal Cannula Oxygen Flow Rate 1 05/10/24 13:00 05/10/24 13:00 05/10/24 13:30 Pulse Rate 86 Respiratory Rate 23 Blood Pressure 143/86 H 146/93 H Pulse Oximetry 97 Oxygen Delivery Method Nasal Cannula Oxygen Flow Rate 1 05/10/24 13:30 Pulse Rate 84 Respiratory Rate 16 Blood Pressure Pulse Oximetry 95 Oxygen Delivery Method Oxygen Flow Rate <Jeffrey Crocker, DO - Last Filed: 05/10/24 13:52> Orders Ordered: Discontinued Medications Enoxaparin Sodium (Enoxaparin 100 Mg/Ml Syringe) 100 mg SUBCUT NOW ONE Stop: 05/10/24 04:31 Last Admin: 05/10/24 04:34 Dose: 100 mg Documented By: Sodium Chloride (Normal Saline 0.9%) 1,000 mls @ 125 mls/hr IV CONT PREETI Last Infusion: 05/10/24 14:10 Dose: 125 mls/hr Documented By: Admin: 05/10/24 14:03 Dose: 125 mls/hr Documented By: PERLA Ondansetron HCl (Ondansetron 4 Mg/2 Ml Inj) 4 mg IV NOW ONE Stop: 05/10/24 11:28 Last Admin: 05/10/24 11:30 Dose: 4 mg Documented By: PERLA Vital Signs Vital signs: Vital Signs - 8 hr 05/10/24 07:00 05/10/24 07:00 05/10/24 07:30 Pulse Rate 92 H 88 Respiratory Rate 17 20 Blood Pressure 167/93 H Pulse Oximetry 99 100 Oxygen Delivery Method Nasal Cannula Nasal Cannula Oxygen Flow Rate 2 05/10/24 07:30 05/10/24 08:00 05/10/24 08:16 Pulse Rate 91 H 89 Respiratory Rate 23 22 Blood Pressure 157/96 H Pulse Oximetry 98 96 Oxygen Delivery Method Nasal Cannula Oxygen Flow Rate 2 05/10/24 08:30 05/10/24 09:00 05/10/24 09:25 Pulse Rate 90 89 Respiratory Rate Blood Pressure 142/91 H 155/104 H Pulse Oximetry 97 98 100 Oxygen Delivery Method Nasal Cannula Nasal Cannula Nasal Cannula Oxygen Flow Rate 2 2 05/10/24 09:30 05/10/24 09:31 05/10/24 09:32 Pulse Rate 87 Respiratory Rate 20 Blood Pressure 143/86 H Pulse Oximetry 99 94 Oxygen Delivery Method Room Air Room Air Oxygen Flow Rate 05/10/24 10:00 05/10/24 10:00 05/10/24 10:30 Pulse Rate 90 89 Respiratory Rate 22 21 Blood Pressure 136/87 Pulse Oximetry 95 Oxygen Delivery Method Oxygen Flow Rate 05/10/24 10:31 05/10/24 10:31 05/10/24 11:00 Pulse Rate 86 93 H Respiratory Rate 20 28 H Blood Pressure 164/97 H Pulse Oximetry 95 93 Oxygen Delivery Method Room Air Room Air Oxygen Flow Rate 05/10/24 11:26 05/10/24 11:26 05/10/24 11:30 Pulse Rate 87 91 H Respiratory Rate 21 23 Blood Pressure 143/92 H Pulse Oximetry 96 97 Oxygen Delivery Method Nasal Cannula Oxygen Flow Rate 1 05/10/24 11:30 05/10/24 11:35 05/10/24 12:00 Pulse Rate Respiratory Rate Blood Pressure 155/96 H 148/90 H Pulse Oximetry 95 Oxygen Delivery Method Nasal Cannula Oxygen Flow Rate 1 05/10/24 12:00 05/10/24 12:30 05/10/24 12:30 Pulse Rate 85 87 Respiratory Rate 20 23 Blood Pressure 167/95 H Pulse Oximetry 93 94 Oxygen Delivery Method Nasal Cannula Oxygen Flow Rate 1 05/10/24 13:00 05/10/24 13:00 05/10/24 13:30 Pulse Rate 86 Respiratory Rate 23 Blood Pressure 143/86 H 146/93 H Pulse Oximetry 97 Oxygen Delivery Method Nasal Cannula Oxygen Flow Rate 1 05/10/24 13:30 Pulse Rate 84 Respiratory Rate 16 Blood Pressure Pulse Oximetry 95 Oxygen Delivery Method Oxygen Flow Rate MDM - Chest Pain <Zuleika Sandoval MD - Last Filed: 05/11/24 03:51> Differential Diagnosis Differential diagnosis: Likely pneumothorax, atypical chest pain and chest pain Lab Data 05/10/24 03:24 05/10/24 03:24 Labs: Lab Results 05/10/24 05/10/24 05/10/24 Range/Units 03:24 03:34 10:00 WBC 11.6 H (4.5-11.0) X10^3/uL RBC 5.16 (4.5-5.9) X10^6/uL Hgb 15.0 (13.5-17.5) g/dL Hct 44.2 (41-53) % MCV 85.7 (80-100) fL MCH 29.0 (26-34) PG MCHC 33.9 (30-36) % RDW 13.3 (11.6-14.8) % Plt Count 238 (150-400) X10^3/uL Neut % (Auto) 57.3 (50-75) % Lymph % (Auto) 31.0 (25-40) % [place] % (Auto) 9.3 (3-14) % Eos % (Auto) 1.4 L (2-4) % Baso % (Auto) 1.0 (0-2) % Neut # (Auto) 6600 (1821-1698) /uL Lymph # (Auto) 3600 (9516-0491) /uL [place] # (Auto) 1100 H (0-900) /uL Eos # (Auto) 200 (0-450) /uL Baso # (Auto) 100 (0-100) /uL PT 11.7 (9.4-12.5) SECONDS INR 1.0 (0.9-1.3) Sodium 141 (137-145) mmol/L Potassium 4.1 (3.4-5.1) mmol/L Chloride 106 (98-107) mmol/L Carbon Dioxide 26 (22-32) mmol/L BUN 13 (9-20) mg/dL Creatinine 0.82 (0.66-1.25) mg/dL Estimated GFR > 60 (>60) mL/min BUN/Creatinine Ratio 15.9 (6-22) Glucose 163 H (80-110) mg/dL Calcium 9.1 (8.4-10.2) mg/dL Total Bilirubin 0.8 (0.2-1.3) mg/dL AST 36 (17-59) IU/L ALT 38 (<50) IU/L Alkaline Phosphatase 122 (38-126) U/L Total Creatine Kinase 137 (55-170) U/L Troponin I 0.730 H* 0.419 H* (0.01-0.034) ng/mL NT-Pro-B Natriuret Pep 551 H (<125) pg/mL Total Protein 8.0 (6.3-8.2) g/dL Albumin 4.5 (3.5-5.0) g/dL Globulin 3.5 (1.7-4.1) g/dL Albumin/Globulin Ratio 1.3 (1.0-2.8) Chlamy pneumoniae PCR Not detected (Not Detect) Adenovirus (PCR) Not detected (Not Detect) B.parapertussis DNA PCR Not detected (Not Detecte) Coronavirus OC43 (PCR) Not detected (Not Detect) Coronavirus HKU1 (PCR) Not detected (Not Detect) Coronavirus 229E (PCR) Not detected (Not Detect) SARS-CoV-2 (PCR) Not detected (Not Detecte) Coronavirus NL63 (PCR) Not detected (Not Detect) Human Metapneumovir PCR Not detected (Not Detect) Influenza Type A (PCR) Not detected (Not Detect) Influenza Type B (PCR) Not detected (Not Detect) M. pneumoniae (PCR) Not detected (Not Detect) Parainfluenza 1 (PCR) Not detected (Not Detect) Parainfluenza 2 (PCR) Not detected (Not Detect) Parainfluenza 3 (PCR) Not detected (Not Detect) Parainfluenza 4 (PCR) Not detected (Not Detect) RSV (PCR) Not detected (Not Detect) Entero/Rhino (PCR) Not detected (Not Detect) Imaging Data CT scan - chest: My Impression: Preliminary review performed by myself: Saddle pulmonary embolism with bilateral segmental emboli ECG Data Interpretation: Sinus tachycardia at 107 beats per minute. PVCs present. Normal AL. Incomplete right bundle-branch block MDM Narrative Medical decision making narrative: Shortness of breath and chest pain sudden onset this morning. Patient does appear to have some discomfort when speaking in complete sentences. Oxygen saturations are borderline on room air from 90-92%. Concern is for pulmonary embolism. Patient denies known medical history but also does not routinely follow with a primary care doctor. Placed on avionics repair technician, labs and imaging to be obtained. Laboratory work significant for WBC count 11.6, hemoglobin 15.0, platelets 238, INR 1.0, sodium 141, potassium 4.1, creatinine 0.82, troponin 0.730, BNP 551. EKG does not show any ST or T-wave segments to suggest myocardial ischemia, my suspicion is for pulmonary process. Patient placed on 2 L nasal cannula in the interim. Preliminary review of CT angio shows central pulmonary emboli with bilateral clot burden. No obvious right heart strain or reflux of contrast into the liver, however based on the elevated troponin, supplemental O2 requirements, and location of the embolism call placed to Interventional Radiology at [facility] to see if patient was an interventional candidate. Started on Lovenox subQ. Patient informed of diagnosis and plan to attempt transfer for interventional services. 0515 - Discussed cse with Dr. Verma of [facility] - will present to interventional teamto see if patient is candidate for clot retrieval <Jeffrey Crocker, - Last Filed: 05/10/24 13:52> Lab Data Labs: Lab Results 05/10/24 05/10/24 05/10/24 Range/Units 03:24 03:34 10:00 WBC 11.6 H (4.5-11.0) X10^3/uL RBC 5.16 (4.5-5.9) X10^6/uL Hgb 15.0 (13.5-17.5) g/dL Hct 44.2 (41-53) % MCV 85.7 (80-100) fL MCH 29.0 (26-34) PG MCHC 33.9 (30-36) % RDW 13.3 (11.6-14.8) % Plt Count 238 (150-400) X10^3/uL Neut % (Auto) 57.3 (50-75) % Lymph % (Auto) 31.0 (25-40) % [place] % (Auto) 9.3 (3-14) % Eos % (Auto) 1.4 L (2-4) % Baso % (Auto) 1.0 (0-2) % Neut # (Auto) 6600 (3251-5428) /uL Lymph # (Auto) 3600 (5774-0876) /uL [place] # (Auto) 1100 H (0-900) /uL Eos # (Auto) 200 (0-450) /uL Baso # (Auto) 100 (0-100) /uL PT 11.7 (9.4-12.5) SECONDS INR 1.0 (0.9-1.3) Sodium 141 (137-145) mmol/L Potassium 4.1 (3.4-5.1) mmol/L Chloride 106 (98-107) mmol/L Carbon Dioxide 26 (22-32) mmol/L BUN 13 (9-20) mg/dL Creatinine 0.82 (0.66-1.25) mg/dL Estimated GFR > 60 (>60) mL/min BUN/Creatinine Ratio 15.9 (6-22) Glucose 163 H (80-110) mg/dL Calcium 9.1 (8.4-10.2) mg/dL Total Bilirubin 0.8 (0.2-1.3) mg/dL AST 36 (17-59) IU/L ALT 38 (<50) IU/L Alkaline Phosphatase 122 (38-126) U/L Total Creatine Kinase 137 (55-170) U/L Troponin I 0.730 H* 0.419 H* (0.01-0.034) ng/mL NT-Pro-B Natriuret Pep 551 H (<125) pg/mL Total Protein 8.0 (6.3-8.2) g/dL Albumin 4.5 (3.5-5.0) g/dL Globulin 3.5 (1.7-4.1) g/dL Albumin/Globulin Ratio 1.3 (1.0-2.8) Chlamy pneumoniae PCR Not detected (Not Detect) Adenovirus (PCR) Not detected (Not Detect) B.parapertussis DNA PCR Not detected (Not Detecte) Coronavirus OC43 (PCR) Not detected (Not Detect) Coronavirus HKU1 (PCR) Not detected (Not Detect) Coronavirus 229E (PCR) Not detected (Not Detect) SARS-CoV-2 (PCR) Not detected (Not Detecte) Coronavirus NL63 (PCR) Not detected (Not Detect) Human Metapneumovir PCR Not detected (Not Detect) Influenza Type A (PCR) Not detected (Not Detect) Influenza Type B (PCR) Not detected (Not Detect) M. pneumoniae (PCR) Not detected (Not Detect) Parainfluenza 1 (PCR) Not detected (Not Detect) Parainfluenza 2 (PCR) Not detected (Not Detect) Parainfluenza 3 (PCR) Not detected (Not Detect) Parainfluenza 4 (PCR) Not detected (Not Detect) RSV (PCR) Not detected (Not Detect) Entero/Rhino (PCR) Not detected (Not Detect) MDM Narrative Medical decision making narrative: Shortness of breath and chest pain sudden onset this morning. Patient does appear to have some discomfort when speaking in complete sentences. Oxygen saturations are borderline on room air from 90-92%. Concern is for pulmonary embolism. Patient denies known medical history but also does not routinely follow with a primary care doctor. Placed on avionics repair technician, labs and imaging to be obtained. Laboratory work significant for WBC count 11.6, hemoglobin 15.0, platelets 238, INR 1.0, sodium 141, potassium 4.1, creatinine 0.82, troponin 0.730, BNP 551. EKG does not show any ST or T-wave segments to suggest myocardial ischemia, my suspicion is for pulmonary process. Patient placed on 2 L nasal cannula in the interim. Preliminary review of CT angio shows central pulmonary emboli with bilateral clot burden. No obvious right heart strain or reflux of contrast into the liver, however based on the elevated troponin, supplemental O2 requirements, and location of the embolism call placed to Interventional Radiology at [facility] to see if patient was an interventional candidate. Started on Lovenox subQ. Patient informed of diagnosis and plan to attempt transfer for interventional services. 514 - Discussed cse with Dr. Verma of [facility] - will present to interventional teamto see if patient is candidate for clot retrieval Dr Crocker: Received turned over. The patient has been stable. Has had periods of time off of oxygen but is now back on nasal cannula. Patient has been accepted at [address] Patient is stable for transport. Critical Care Time <Zuleika Sandoval MD - Last Filed: 05/11/24 03:51> Critical Care Time Critical Care Time: Yes Total Critical Care Time: 49 Attestation: Saddle pulmonary embolism requiring transfer for thrombectomy Discharge Plan Departure Patient Disposition: [facility] Clinical Impression: Pulmonary embolism Prescriptions: No Action amoxicillin-pot clavulanate 875-125 mg tablet 1 tab PO BID Qty: 20 0RF tramadol 50 mg tablet 50 mg PO Q6H PRN (Reason: pain) Qty: 7 0RF baclofen 10 mg tablet 10 mg PO TID PRN (Reason: muscle spasm) 10 Days Qty: 30 1RF atorvastatin [Lipitor] 20 mg Tablet 40 mg PO BEDTIME Qty: 30 0RF aspirin 325 mg Tablet,Delayed Release (Dr/Ec) 325 mg PO DAILY Qty: 30 0RF cyclobenzaprine 10 mg tablet 10 mg PO TID PRN (Reason: muscle spasm) Qty: 14 0RF prednisone 10 mg tablet See Rx Instructions .ROUTE .COMPLEX Qty: 30 0RF Rx Instructions: Day 1,2,3: 40mg PO Daily Day 4,5,6: 30mg PO Daily Day 7,8,9: 20mg PO Daily Day 10,11,12: 10mg PO Daily #30 hydrocodone-acetaminophen 5-325 mg tablet 1 tab PO Q4-6H PRN (Reason: pain) Qty: 10 0RF ketorolac 10 mg tablet 10 mg PO Q6H PRN (Reason: pain) Qty: 14 0RF Referrals: Miscellaneous,Doctor, MD [Primary Care Provider] -
[2024-05-10 03:39] LABS: Add Manual Diff / Slide Review NO; Basophils Absolute Auto 100 /uL (0-100); Eosinophils Absolute Auto 200 /uL (0-450); Eosinophils Percent Auto 1.4 % (2-4); Hematocrit 44.2 % (41-53); Lymphocytes Absolute Auto 3600 /uL (1100-4500); Mean Corpuscular HGB Conc 33.9 % (30-36); Mean Corpuscular Volume 85.7 fL (80-100); Monocytes Absolute Auto 1100 /uL (0-900); Monocytes Percent Auto 9.3 % (3-14); Neutrophils Absolute Auto 6600 /uL (1500-7000); Neutrophils Percent Auto 57.3 % (50-75); Platelet Count 238 X10^3/uL (150-400); Red Blood Cell Count 5.16 X10^6/uL (4.5-5.9); Red Cell Distribution Width 13.3 % (11.6-14.8); White Blood Cell Count 11.6 X10^3/uL (4.5-11.0)
[2024-05-10 03:48] LABS: Prothrombin Time 11.7 SECONDS (9.4-12.5)
[2024-05-10 03:52] LABS: Alanine Aminotransferase 38 IU/L (<50); Albumin 4.5 g/dL (3.5-5.0); Albumin Globulin Ratio 1.3 (1.0-2.8); Alkaline Phosphatase 122 U/L (38-126); Aspartate Aminotransferase 36 IU/L (17-59); BUN Creatinine Ratio 15.9 (6-22); Bilirubin Total 0.8 mg/dL (0.2-1.3); Blood Urea Nitrogen 13 mg/dL (9-20); Calcium 9.1 mg/dL (8.4-10.2); Carbon Dioxide 26 mmol/L (22-32); Chloride 106 mmol/L (98-107); Creatine Kinase 137 U/L (55-170); Estimated Glomerular Filt Rate > 60 mL/min (>60); Globulin 3.5 g/dL (1.7-4.1); Glucose 163 mg/dL (80-110); HEMOLYSIS 36 (0-50); Potassium 4.1 mmol/L (3.4-5.1); Sodium 141 mmol/L (137-145)
[2024-05-10 04:04] LABS: NT-proBNP (BNP-Adult 18+) 551 pg/mL (<125)
--- NOTE | 2024-05-10 04:08 | PC.NURSE ---
Sats 88-91 on RA. 2L NC applied. Sats returned to 97%. Dr Sandoval notified.
[2024-05-10 04:28] LABS: Adenovirus Not Detected (Not Detect); B. parapertussis Not Detected (Not Detecte); Bordetella pertussis Not Detected (Not Detect); Chlamydophila pneumoniae Not Detected (Not Detect); Coronavirus 229E Not Detected (Not Detect); Coronavirus HKU1 Not Detected (Not Detect); Coronavirus NL 63 Not Detected (Not Detect); Coronavirus OC43 Not Detected (Not Detect); Human Metapneumovirus Not Detected (Not Detect); Human Rhinovirus/Enterovirus Not Detected (Not Detect); Influenza A Not Detected (Not Detect); Influenza B Not Detected (Not Detect); Mycoplasma pneumoniae Not Detected (Not Detect); Parainfluenza Virus 1 Not Detected (Not Detect); Parainfluenza Virus 2 Not Detected (Not Detect); Parainfluenza Virus 3 Not Detected (Not Detect); Parainfluenza Virus 4 Not Detected (Not Detect); Respiratory Syncytial Virus Not Detected (Not Detect); SARS- CoV-2 Not Detected (Not Detecte)
[2024-05-10] MEDS: ENOXAPARIN 100 MG/ML SYRINGE SUBCUT (04:34)
--- NOTE | 2024-05-10 08:15 | PC.NURSE ---
Pt alert and oriented, requesting update on transfer status. Pt updated, repositioned in bed. He denies chest pain or dizziness. He is diaphoretic really hot with oral temp 97.8f. Cool washcloth applied to pt's forehead, fan placed on pt for comfort.
[2024-05-10 10:39] LABS: Troponin I 0.419 ng/mL (0.01-0.034)
[2024-05-10] MEDS: ONDANSETRON 4 MG/2 ML INJ IV (11:30)
--- NOTE | 2024-05-10 11:33 | PC.NURSE ---
PT C/O nausea. Persistently diaphoretic. Denies dizziness, chest pain. A&O x4. Pt fan used for comfort.
--- NOTE | 2024-05-10 13:28 | PC.NURSE ---
Pt states nausea resolved after receiving meds (see MAR). Denies chest pain or dizziness. Remains SOB. Alert and oriented, asked us to charge his phone. Pt phone labeled and placed on writing tutor at nurse station.
[2024-05-10] MEDS: SODIUM CHLORIDE 0.9% 1,000 ML 125 ML IV (14:03)
--- NOTE | 2024-05-10 14:49 | CM.SWNOTE ---
ED C SOFTWARE DEVELOPER Note: Reviewed chart and discussed patient with ED RN. Per RN, patient does not need to meet with C SOFTWARE DEVELOPER at this time and will be transferring to higher level of care at 1340. No social needs identified at this time. Plan: Patient to transfer to [facility] via [facility] at 1340. JUSTIN Bertrand
== END 2024-05-10 15:02 | disposition short-term general hospital (02) ==
PROVIDERS: Emergency Medicine; Emergency Provider Emergency Medicine
DX: I26.99 Other pulmonary embolism without acute cor pulmonale (principal); R06.02 Shortness of breath; R00.0 Tachycardia, unspecified; Z11.52 Encounter for screening for COVID-19
CPT/HCPCS: 36415; 71045; 71275; 80053; 82550; 83880; 84484; 85025; 85610; 87633; 93005; 96372; 96374; 99285; 99291; J1650; J2405; Q9967

== ENCOUNTER 2024-05-15 14:47 | Emergency (ER) | payer MEDICARE, SELFPAY ==
[2020-06-07 14:32] VITALS: BMI 29.5
[2024-05-15] VITALS (11 sets, daily range): BP systolic 151–177; BP diastolic 78–98; PULSE 71–81; RESP 14–19; TEMP 36.8; O2SAT 97–99; BMI 30.1
--- NOTE | 2024-05-15 15:08 | EKG_ITS ---
[address] [address] Test Date: 2024-05-15 Pat Name: Leland Travis Department: Room: Gender: Male Director [place]: [place] : 1960 Requested By: Order Number: [id number] Reading MD: Joao Cochran Measurements Intervals [place] Rate: 78 P: -5 DC: 164 QRS: -53 QRSD: 94 T: -15 QT: 396 QTc: 451 Interpretive Statements Normal sinus rhythm Left anterior fascicular block Electronically Signed On 05-17-2024 7:34:17 PDT by Joao Cochran
--- NOTE | 2024-05-15 15:12 | DI.RAD.S_ITS ---
PROCEDURE: XR CHEST 1V INDICATIONS: chest pain TECHNIQUE: One view of the chest was acquired. COMPARISON: [facility], CR, XR CHEST 1V, 05/10/2024, 3:21. [facility], CR, XR CHEST 1V, 11/23/2021, 12:48. FINDINGS: Surgical changes and devices: None. Lungs and pleura: Mild peribronchial cuffing. No dense airspace disease or pleural effusion. Mediastinum: Cardiomediastinal contours are unchanged Bones and chest wall: Degenerative findings IMPRESSION: Mild peribronchial cuffing may represent atypical infection/bronchitis. No dense airspace disease. Low lung volumes. Dictated by: Alban Mascorro M.D. on 05/15/2024 at 16:11 Approved by: Alban Mascorro M.D. on 05/15/2024 at 16:12
[2024-05-15 15:22] LABS: INR 1.2 (0.9-1.3); Prothrombin Time 13.3 SECONDS (9.4-12.5)
[2024-05-15 15:25] LABS: Add Manual Diff / Slide Review NO; Basophils Absolute Auto 0 /uL (0-100); Basophils Percent Auto 0.5 % (0-2); Eosinophils Absolute Auto 500 /uL (0-450); Hematocrit 41.3 % (41-53); Hemoglobin 14.2 g/dL (13.5-17.5); Lymphocytes Absolute Auto 2800 /uL (1100-4500); Lymphocytes Percent Auto 35.1 % (25-40); Mean Corpuscular HGB Conc 34.3 % (30-36); Mean Corpuscular Hemoglobin 29.1 PG (26-34); Mean Corpuscular Volume 84.8 fL (80-100); Monocytes Absolute Auto 600 /uL (0-900); Monocytes Percent Auto 8.1 % (3-14); Neutrophils Absolute Auto 4000 /uL (1500-7000); Neutrophils Percent Auto 50.3 % (50-75); PTT Partial Thromboplastin Tim 43 SECONDS (25.1-36.5); Platelet Count 258 X10^3/uL (150-400); Red Blood Cell Count 4.88 X10^6/uL (4.5-5.9); Red Cell Distribution Width 13.3 % (11.6-14.8)
[2024-05-15 15:28] LABS: Alanine Aminotransferase 84 IU/L (<50); Albumin 4.5 g/dL (3.5-5.0); Albumin Globulin Ratio 1.5 (1.0-2.8); Alkaline Phosphatase 117 U/L (38-126); Aspartate Aminotransferase 53 IU/L (17-59); BUN Creatinine Ratio 15.2 (6-22); Bilirubin Total 0.5 mg/dL (0.2-1.3); Blood Urea Nitrogen 12 mg/dL (9-20); Calcium 9.1 mg/dL (8.4-10.2); Carbon Dioxide 24 mmol/L (22-32); Chloride 106 mmol/L (98-107); Creatine Kinase 108 U/L (55-170); Estimated Glomerular Filt Rate > 60 mL/min (>60); Globulin 3.1 g/dL (1.7-4.1); Glucose 116 mg/dL (80-110); HEMOLYSIS < 15 (0-50); Lipase 79 U/L (23-300); Magnesium 2.1 mg/dL (1.6-2.3); Potassium 4.2 mmol/L (3.4-5.1); Sodium 140 mmol/L (137-145); Total Protein 7.6 g/dL (6.3-8.2)
[2024-05-15 15:38] LABS: NT-proBNP (BNP-Adult 18+) 348 pg/mL (<125); Troponin I 0.041 ng/mL (0.01-0.034)
--- NOTE | 2024-05-15 18:00 | ED.CHESTPAIN ---
HPI - Chest Pain <Zuleika Sandoval MD - Last Filed: 05/17/24 09:31> General Chief Complaint: Chest Pain Stated Complaint: chest px, dizziness, return patient Time Seen by Provider: 05/15/24 15:09 Source: patient Mode of arrival: Wheelchair Limitations: no limitations History of Present Illness HPI narrative: 64-year-old male with history of pulmonary embolism on Eliquis (saddle PE 05/10/24, sent to [facility] for thrombectomy) presents by private vehicle for chest pain, dizziness, bilateral hand numbness that began just prior to arrival. Patient states that he was driving when he felt very woozy with the associated symptoms. Since patient recently had pulmonary embolisms he became concerned and sent to present for evaluation. Patient has been compliant with his Eliquis and has not missed any doses since his discharge from the hospital. He states that he was told that he has a ?stuck? clot in his right lower extremity, but they were able to remove most of the pulmonary embolism. Since arrival to the emergency department his symptoms have improved and he no longer feels chest pains. Related Data Previous Rx's Medication Instructions Recorded aspirin 325 mg tablet,delayed 325 mg PO DAILY #30 tabs 06/08/20 release atorvastatin 20 mg tablet (Lipitor) 40 mg (2 x 20 mg) PO BEDTIME #30 06/08/20 tabs cyclobenzaprine 10 mg tablet 10 mg PO TID PRN muscle spasm #14 10/19/20 tabs hydrocodone 5 mg-acetaminophen 325 1 tab PO Q4-6H PRN pain #10 tabs 10/19/20 mg tablet ketorolac 10 mg tablet 10 mg PO Q6H PRN pain #14 tabs 10/19/20 prednisone 10 mg tablet See Rx Instructions .Route 10/19/20 .COMPLEX #30 tabs amoxicillin 875 mg-potassium 1 tab PO BID #20 tabs 10/15/22 clavulanate 125 mg tablet tramadol 50 mg tablet 50 mg PO Q6H PRN pain #7 tabs 10/15/22 baclofen 10 mg tablet 10 mg PO TID PRN muscle spasm 10 12/07/23 days #30 tabs Allergies Allergy/AdvReac Type Severity Reaction Status Date / Time No Known Drug Allergies Allergy Verified 04/24/24 20:30 <Meir Buchanan MD - Last Filed: 05/16/24 15:42> History of Present Illness HPI narrative: 64-year-old male with history of pulmonary embolism on Eliquis (saddle PE 05/10/24, sent to [facility] for thrombectomy) presents by private vehicle for chest pain, dizziness, bilateral hand numbness that began just prior to arrival. Patient states that he was driving when he felt very woozy with the associated symptoms. Since patient recently had pulmonary embolisms he became concerned and sent to present for evaluation. Patient has been compliant with his Eliquis and has not missed any doses since his discharge from the hospital. He states that he was told that he has a ?stuck? clot in his right lower extremity, but they were able to remove most of the pulmonary embolism. Since arrival to the emergency department his symptoms have improved and he no longer feels chest pains. Patient History <Zuleika Sandoval MD - Last Filed: 05/17/24 09:31> Medical History Hypertension Patient denies medical problems Family History Father Cancer Social History household members: significant other Smoking Status: Unknown if ever smoked alcohol intake: never Smoking Status: Unknown if ever smoked alcohol intake frequency: holidays/special occasions only Substance Use Type: marijuana Exam <Zuleika Sandoval MD - Last Filed: 05/17/24 09:31> Initial Vital Signs Initial Vital Signs: Vital Signs Temperature 98.3 F 05/15/24 14:50 Pulse Rate 80 05/15/24 14:50 Respiratory Rate 18 05/15/24 14:50 Blood Pressure 161/86 H 05/15/24 14:50 Pulse Oximetry 99 05/15/24 14:50 Oxygen Delivery Method Room Air 05/15/24 14:50 <Meir Buchanan MD - Last Filed: 05/16/24 15:42> Initial Vital Signs Initial Vital Signs: Vital Signs Temperature 98.3 F 05/15/24 14:50 Pulse Rate 80 05/15/24 14:50 Respiratory Rate 18 05/15/24 14:50 Blood Pressure 161/86 H 05/15/24 14:50 Pulse Oximetry 99 05/15/24 14:50 Oxygen Delivery Method Room Air 05/15/24 14:50 Course <Zuleika Sandoval MD - Last Filed: 05/17/24 09:31> Orders Ordered: ED Orders 05/15/24 15:05 Complete Blood Count AUTO DIFF Stat Comprehensive Metabolic Panel Stat Lipase Stat Magnesium Stat NT-proBNP (BNP-Adult 18+) Stat PTT Partial Thromboplastin Ivan Stat Prothrombin Time INR Stat Troponin & CK Cardiac Panel Stat 05/15/24 15:12 XR chest 1V Stat EKG-12 Lead Stat 05/15/24 18:08 Trop I [Troponin I] Stat Vital Signs Vital signs: Vital Signs - 8 hr 05/15/24 14:50 05/15/24 15:02 05/15/24 15:04 Temperature 98.3 F Pulse Rate 80 76 Respiratory Rate 18 19 Blood Pressure 161/86 H Pulse Oximetry 99 98 98 Oxygen Delivery Method Room Air 05/15/24 15:04 05/15/24 15:30 05/15/24 15:30 Temperature Pulse Rate 71 Respiratory Rate 15 Blood Pressure 177/98 H 169/96 H Pulse Oximetry 98 Oxygen Delivery Method 05/15/24 16:00 05/15/24 16:00 05/15/24 16:30 Temperature Pulse Rate 72 Respiratory Rate 16 Blood Pressure 162/96 H 168/94 H Pulse Oximetry 98 Oxygen Delivery Method 05/15/24 16:30 05/15/24 17:00 05/15/24 17:00 Temperature Pulse Rate 75 74 Respiratory Rate 17 15 Blood Pressure 158/91 H Pulse Oximetry 99 99 Oxygen Delivery Method 05/15/24 17:30 05/15/24 17:30 05/15/24 18:00 Temperature Pulse Rate 81 76 Respiratory Rate 16 14 Blood Pressure 151/81 H Pulse Oximetry 97 98 Oxygen Delivery Method 05/15/24 18:00 Temperature Pulse Rate Respiratory Rate Blood Pressure 165/78 H Pulse Oximetry Oxygen Delivery Method <Meir Buchanan MD - Last Filed: 05/16/24 15:42> Orders Ordered: ED Orders 05/15/24 15:05 Complete Blood Count AUTO DIFF Stat Comprehensive Metabolic Panel Stat Lipase Stat Magnesium Stat NT-proBNP (BNP-Adult 18+) Stat PTT Partial Thromboplastin Ivan Stat Prothrombin Time INR Stat Troponin & CK Cardiac Panel Stat 05/15/24 15:12 XR chest 1V Stat EKG-12 Lead Stat 05/15/24 18:08 Trop I [Troponin I] Stat Vital Signs Vital signs: Vital Signs - 8 hr 05/15/24 14:50 05/15/24 15:02 05/15/24 15:04 Temperature 98.3 F Pulse Rate 80 76 Respiratory Rate 18 19 Blood Pressure 161/86 H Pulse Oximetry 99 98 98 Oxygen Delivery Method Room Air 05/15/24 15:04 05/15/24 15:30 05/15/24 15:30 Temperature Pulse Rate 71 Respiratory Rate 15 Blood Pressure 177/98 H 169/96 H Pulse Oximetry 98 Oxygen Delivery Method 05/15/24 16:00 05/15/24 16:00 05/15/24 16:30 Temperature Pulse Rate 72 Respiratory Rate 16 Blood Pressure 162/96 H 168/94 H Pulse Oximetry 98 Oxygen Delivery Method 05/15/24 16:30 05/15/24 17:00 05/15/24 17:00 Temperature Pulse Rate 75 74 Respiratory Rate 17 15 Blood Pressure 158/91 H Pulse Oximetry 99 99 Oxygen Delivery Method 05/15/24 17:30 05/15/24 17:30 05/15/24 18:00 Temperature Pulse Rate 81 76 Respiratory Rate 16 14 Blood Pressure 151/81 H Pulse Oximetry 97 98 Oxygen Delivery Method 05/15/24 18:00 Temperature Pulse Rate Respiratory Rate Blood Pressure 165/78 H Pulse Oximetry Oxygen Delivery Method MDM - Chest Pain <Zuleika Sandoval MD - Last Filed: 05/17/24 09:31> Lab Data 05/15/24 15:05 05/15/24 15:05 Labs: Lab Results 05/15/24 05/15/24 Range/Units 15:05 18:08 WBC 8.0 (4.5-11.0) X10^3/uL RBC 4.88 (4.5-5.9) X10^6/uL Hgb 14.2 (13.5-17.5) g/dL Hct 41.3 (41-53) % MCV 84.8 (80-100) fL MCH 29.1 (26-34) PG MCHC 34.3 (30-36) % RDW 13.3 (11.6-14.8) % Plt Count 258 (150-400) X10^3/uL Neut % (Auto) 50.3 (50-75) % Lymph % (Auto) 35.1 (25-40) % Tate % (Auto) 8.1 (3-14) % Eos % (Auto) 6.0 H (2-4) % Baso % (Auto) 0.5 (0-2) % Neut # (Auto) 4000 (2124-4338) /uL Lymph # (Auto) 2800 (2630-7255) /uL Tate # (Auto) 600 (0-900) /uL Eos # (Auto) 500 H (0-450) /uL Baso # (Auto) 0 (0-100) /uL PT 13.3 H (9.4-12.5) SECONDS INR 1.2 (0.9-1.3) APTT 43 H (25.1-36.5) SECONDS Sodium 140 (137-145) mmol/L Potassium 4.2 (3.4-5.1) mmol/L Chloride 106 (98-107) mmol/L Carbon Dioxide 24 (22-32) mmol/L BUN 12 (9-20) mg/dL Creatinine 0.79 (0.66-1.25) mg/dL Estimated GFR > 60 (>60) mL/min BUN/Creatinine Ratio 15.2 (6-22) Glucose 116 H (80-110) mg/dL Calcium 9.1 (8.4-10.2) mg/dL Magnesium 2.1 (1.6-2.3) mg/dL Total Bilirubin 0.5 (0.2-1.3) mg/dL AST 53 (17-59) IU/L ALT 84 H (<50) IU/L Alkaline Phosphatase 117 (38-126) U/L Total Creatine Kinase 108 (55-170) U/L Troponin I 0.041 H 0.043 H (0.01-0.034) ng/mL NT-Pro-B Natriuret Pep 348 H (<125) pg/mL Total Protein 7.6 (6.3-8.2) g/dL Albumin 4.5 (3.5-5.0) g/dL Globulin 3.1 (1.7-4.1) g/dL Albumin/Globulin Ratio 1.5 (1.0-2.8) Lipase 79 (23-300) U/L MDM Narrative Medical decision making narrative: Transient chest pain and shortness of breath prior to arrival. Currently pain-free. Recently had thrombectomy of saddle pulmonary embolism and is currently on Eliquis. Patient reports compliance with his anti coagulant therapy. EKG shows resolution of previously seen right bundle-branch block. Patient was in normal sinus rhythm without ST T wave changes. Initial troponin 0.041, downtrending from previous. 2h troponin pending. Care of patient signed to Dr. Buchanan at 1800 Buchanan, 05/15/2024, 6:00 p.m.. Sign-out from Dr. Sandoval. 64-year-old male with recent diagnosis saddle pulmonary embolism that was treated with thrombectomy at [facility], discharged on Eliquis, had right leg chronic appearing clot, was driving today, had chest pain, EKG shows resolution of previous right bundle branch block, initial troponin 0.041 (decreased from prior visit evaluation 0.7 range). Resolved chest pain. No tachycardia. No shortness of breath. Repeat troponin pending. Patient already on Eliquis anticoagulation. Anticipate discharge home if repeat troponin stable/down trending. Assumed interim care. Repeat troponin 0.043 in similar range to previous draw today 0.041, compared to troponin 0.7 elevation when he was recently diagnosed with acute saddle pulmonary embolus and chronic appearing leg thrombus. We discussed repeat CT angiogram of the chest now, he declines. He is normotensive and not tachycardic, normal oxygenation, no respiratory distress, already on Eliquis anticoagulation. Follow up with his regular doctor advised, follow up with [facility] providers as planned. He has not want to have any testing or observation at this time, he would like to be discharged home, home with . Continue taking Eliquis. Discharged home per patient request. Return precautions discussed <Meir Buchanan MD - Last Filed: 05/16/24 15:42> Lab Data Labs: Lab Results 05/15/24 05/15/24 Range/Units 15:05 18:08 WBC 8.0 (4.5-11.0) X10^3/uL RBC 4.88 (4.5-5.9) X10^6/uL Hgb 14.2 (13.5-17.5) g/dL Hct 41.3 (41-53) % MCV 84.8 (80-100) fL MCH 29.1 (26-34) PG MCHC 34.3 (30-36) % RDW 13.3 (11.6-14.8) % Plt Count 258 (150-400) X10^3/uL Neut % (Auto) 50.3 (50-75) % Lymph % (Auto) 35.1 (25-40) % Tate % (Auto) 8.1 (3-14) % Eos % (Auto) 6.0 H (2-4) % Baso % (Auto) 0.5 (0-2) % Neut # (Auto) 4000 (2446-6371) /uL Lymph # (Auto) 2800 (2425-8240) /uL Tate # (Auto) 600 (0-900) /uL Eos # (Auto) 500 H (0-450) /uL Baso # (Auto) 0 (0-100) /uL PT 13.3 H (9.4-12.5) SECONDS INR 1.2 (0.9-1.3) APTT 43 H (25.1-36.5) SECONDS Sodium 140 (137-145) mmol/L Potassium 4.2 (3.4-5.1) mmol/L Chloride 106 (98-107) mmol/L Carbon Dioxide 24 (22-32) mmol/L BUN 12 (9-20) mg/dL Creatinine 0.79 (0.66-1.25) mg/dL Estimated GFR > 60 (>60) mL/min BUN/Creatinine Ratio 15.2 (6-22) Glucose 116 H (80-110) mg/dL Calcium 9.1 (8.4-10.2) mg/dL Magnesium 2.1 (1.6-2.3) mg/dL Total Bilirubin 0.5 (0.2-1.3) mg/dL AST 53 (17-59) IU/L ALT 84 H (<50) IU/L Alkaline Phosphatase 117 (38-126) U/L Total Creatine Kinase 108 (55-170) U/L Troponin I 0.041 H 0.043 H (0.01-0.034) ng/mL NT-Pro-B Natriuret Pep 348 H (<125) pg/mL Total Protein 7.6 (6.3-8.2) g/dL Albumin 4.5 (3.5-5.0) g/dL Globulin 3.1 (1.7-4.1) g/dL Albumin/Globulin Ratio 1.5 (1.0-2.8) Lipase 79 (23-300) U/L [facility] Narrative Medical decision making narrative: Buchanan, 05/15/2024, 6:00 p.m.. Sign-out from Dr. Sandoval. 64-year-old male with recent diagnosis saddle pulmonary embolism that was treated with thrombectomy at [facility], discharged on Eliquis, had right leg chronic appearing clot, was driving today, had chest pain, EKG shows resolution of previous right bundle branch block, initial troponin 0.041 (decreased from prior visit evaluation 0.7 range). Resolved chest pain. No tachycardia. No shortness of breath. Repeat troponin pending. Patient already on Eliquis anticoagulation. Anticipate discharge home if repeat troponin stable/down trending. Assumed interim care. Repeat troponin 0.043 in similar range to previous draw today 0.041, compared to troponin 0.7 elevation when he was recently diagnosed with acute saddle pulmonary embolus and chronic appearing leg thrombus. We discussed repeat CT angiogram of the chest now, he declines. He is normotensive and not tachycardic, normal oxygenation, no respiratory distress, already on Eliquis anticoagulation. Follow up with his regular doctor advised, follow up with [facility] providers as planned. He has not want to have any testing or observation at this time, he would like to be discharged home, home with . Continue taking Eliquis. Discharged home per patient request. Return precautions discussed Discharge Plan Departure Patient Disposition: Home Clinical Impression: Chest pain, Hx pulmonary embolism Prescriptions: No Action amoxicillin-pot clavulanate 875-125 mg tablet 1 tab PO BID Qty: 20 0RF tramadol 50 mg tablet 50 mg PO Q6H PRN (Reason: pain) Qty: 7 0RF baclofen 10 mg tablet 10 mg PO TID PRN (Reason: muscle spasm) 10 Days Qty: 30 1RF atorvastatin [Lipitor] 20 mg Tablet 40 mg PO BEDTIME Qty: 30 0RF aspirin 325 mg Tablet,Delayed Release (Dr/Ec) 325 mg PO DAILY Qty: 30 0RF cyclobenzaprine 10 mg tablet 10 mg PO TID PRN (Reason: muscle spasm) Qty: 14 0RF prednisone 10 mg tablet See Rx Instructions .ROUTE .COMPLEX Qty: 30 0RF Rx Instructions: Day 1,2,3: 40mg PO Daily Day 4,5,6: 30mg PO Daily Day 7,8,9: 20mg PO Daily Day 10,11,12: 10mg PO Daily #30 hydrocodone-acetaminophen 5-325 mg tablet 1 tab PO Q4-6H PRN (Reason: pain) Qty: 10 0RF ketorolac 10 mg tablet 10 mg PO Q6H PRN (Reason: pain) Qty: 14 0RF Referrals: Miscellaneous,Doctor, MD [Primary Care Provider] - Stand Alone Forms: Patient Portal/API
[2024-05-15 18:46] LABS: Troponin I 0.043 ng/mL (0.01-0.034)
== END 2024-05-15 19:25 | disposition home or self-care (01) ==
PROVIDERS: Emergency Medicine; Emergency Provider Emergency Medicine
DX: R07.9 Chest pain, unspecified (principal); R06.02 Shortness of breath; Z79.01 Long term (current) use of anticoagulants; Z86.711 Personal history of pulmonary embolism
CPT/HCPCS: 36415; 71045; 80053; 82550; 83690; 83735; 83880; 84484; 85025; 85610; 85730; 93005; 99283; 99284

== ENCOUNTER → 2024-09-18 16:24 | Outpatient (CLI) | payer MEDICARE, MEDICAID, SELFPAY ==
[2020-06-07 14:32] VITALS: BMI 29.5
[2024-09-18 17:26] LABS: Estimated Glomerular Filt Rate > 60 mL/min (>60)
--- NOTE | 2024-09-18 17:41 | DI.CT.S_ITS ---
PROCEDURE: CT ANGIO CHEST PE PROTOCOL INDICATIONS: chest pain, PE TECHNIQUE: After the administration of intravenous contrast, 2 mm thick sections acquired from the pulmonary apices to the posterior costophrenic angles. 3-dimensional maximum intensity projection (MIP) coronal and sagittal reformats were then acquired through the thorax. For radiation dose reduction, the following was used: automated exposure control, adjustment of mA and/or kV according to patient size. COMPARISON: [facility], CT, CT ANGIO CHEST PE PROTOCOL, 05/10/2024, 3:53. FINDINGS: Image quality: Diagnostic. Pulmonary arteries: Pulmonary arteries are normal in size, and demonstrate no intraluminal filling defects to suggest central pulmonary embolism. Lower Neck: No enlarged lymph nodes. Thyroid: No thyroid nodules which require sonographic follow up, per consensus guidelines. Axillae: No enlarged lymph nodes. Chest Wall: Unremarkable. Bones: No suspicious osseous lesion. Severe shoulder DJD. Lungs and Pleura: No pneumothorax or pleural effusions. No acute airspace opacity. Right upper lobe pulmonary nodule measuring 0.5 cm, (5/127), unchanged. A few additional small pulmonary nodules measuring 0.4 cm or less. The central airways are clear Heart: Heart size is normal. No pericardial effusion. Thoracic Vessels: No aortic aneurysm. Mediastinum and Tish: No enlarged lymph nodes. Esophagus: No wall thickening. No hiatal hernia. Upper Abdomen: Visualized upper abdomen solid organs and bowel loops appear normal. IMPRESSION: No pulmonary embolus. No acute cardiopulmonary process. Dictated by: Abelardo Jimenez M.D. on 09/18/2024 at 18:04 Approved by: Abelardo Jimenez M.D. on 09/18/2024 at 18:12
== END ==
PROVIDERS: Radiology Diagnostic Radiology; PCP Family Medicine; Referring Provider Family Medicine; Visit Provider Family Medicine
DX: I26.92 Saddle embolus of pulmonary artery without acute cor pulmonale (principal); R07.9 Chest pain, unspecified; R91.8 Other nonspecific abnormal finding of lung field
CPT/HCPCS: 36415; 71275; 82565; Q9967

== ENCOUNTER → 2024-09-21 10:12 | Outpatient (CLI) | payer MEDICARE, MEDICAID, SELFPAY ==
[2020-06-07 14:32] VITALS: BMI 29.5
--- NOTE | 2024-09-21 10:13 | DI.ECHO.S_ITS ---
[facility] : : [address] : [facility] : : [place], : : [place] [address] : : Phone: [phone] Echocardiogram Report + + :Name: ELVIRA GRIFFIN Study Date: 09/21/2024 Height: 66 in : :[facility] ReadingLocation: Weight: 216 lb : : Gender: Male BSA: 2.1 m2 : :: 1960 Age: 64 yrs BP: 171/95 mmHg: :Reason For Study: CHEST PAIN : :Ordering Physician: MULU, : :KOKO Performed By: Rafael Perez : :Referring: KOKO HARDWICK : + + Interpretation Summary The left ventricle is normal in size. Left ventricular systolic function appears normal without focal wall motion abnormalities. The ejection fraction is estimated to be 60-65%. Diastolic parameters suggest a relaxation abnormality of the left ventricle, consistent with probable normal filling pressures. The right ventricle is normal in size and function. The left atrium is borderline dilated. There is no significant valvular heart disease. The aortic root is normal size. Pulmonary artery pressures cannot be estimated because of the lack of a measurable TR jet velocity. Procedure: A two-dimensional transthoracic echocardiogram with color flow and Doppler was performed. The study quality was technically good. Comparison is made with the echocardiogram of 06/08/2020. The patient was in normal sinus rhythm during the exam. Left Ventricle: The left ventricle is normal in size. Left ventricular wall thickness is mildly increased. There is no ventricular septal defect visualized. Left ventricular systolic function appears normal without focal wall motion abnormalities. The ejection fraction is estimated to be 60-65%. Diastolic parameters suggest a relaxation abnormality of the left ventricle, consistent with probable normal filling pressures. Right Ventricle: The right ventricle is normal in size and function. Atria: The left atrium is borderline dilated. Right atrial size is normal. There is no Doppler evidence for an interatrial shunt. Mitral Valve: The mitral valve is normal in structure and function. There is no mitral regurgitation noted. Aortic Valve: The aortic valve is trileaflet. The aortic valve opens well. No aortic regurgitation is present. Tricuspid Valve: The tricuspid valve is normal in structure and function. No tricuspid regurgitation. Pulmonary artery pressures cannot be estimated because of the lack of a measurable TR jet velocity. Pulmonic Valve: The pulmonic valve is normal in structure and function. There is no pulmonic valvular regurgitation. There is no significant valvular heart disease. Great Vessels: The aortic root is normal size. The ascending aorta is at the upper limits of normal in size. The pulmonary artery is normal size. The IVC is of normal diameter and collapses greater than 50% with a sniff. This suggests a low right atrial pressure of 3 mm Hg. Pericardium/ Pleura There is no pericardial effusion. There is no pleural effusion. MMode/2D Measurements & Calculations LVIDd: 3.7 cm AoV Openin.8 cm LVIDs: 2.4 cm LVOT diam: 2.0 cm IVSd: 1.6 cm Ao root diam: 3.4 cm LVPWd: 1.1 cm asc Aorta Diam: 3.6 cm LV mcgraw. diameter/BSA (cm/m^2): 1.8 Ao Arch Diam (Prox Trans): 2.3 cm LV sys. diameter/BSA (cm/m^2): 1.2 FS: 33.1 % EPSS: 0.77 cm LA A2 area: 21.1 cm2 RA long axis: 4.7 cm LA A4 area: 22.3 cm2 RA area: 11.1 cm2 LA length (vol): 5.4 cm RA vol: 22.6 ml LA vol: 73.5 ml RA : 10.9 ml/m2 LA vol index: 35.6 ml/m2 RVD1 (basal): 3.6 cm IVC diam: 1.8 cm RVD2 (mid): 3.2 cm TAPSE: 2.5 cm Doppler Measurements & Calculations Ao V2 max: 147.5 cm/sec LVOT Max Jacek: 127.4 cm/sec Ao V2 mean: 99.9 cm/sec LV V1 max P.5 mmHg Ao V2 VTI: 27.4 cm LV V1 VTI: 24.7 cm Ao max P.7 mmHg Ao mean P.4 mmHg VU(I,D): 2.7 cm2 MV E max jacek: 63.7 cm/sec VU(V,D): 2.6 cm2 MV A max jacek: 87.1 cm/sec VU indexed to BSA (cm^2/m^2): 1.3 MV E/A: 0.73 sev ratio: 0.90 Med Peak E' Jacek: 5.7 cm/sec E/E' med: 11.1 Lat Peak E' Jacek: 7.6 cm/sec E/E' lat: 8.3 E/e' average: 9.7 MV dec time: 0.29 sec PA V2 max: 94.9 cm/sec PA V2 mean: 61.1 cm/sec PA mean P.7 mmHg PA pr(Accel): 51.6 mmHg SV(LVOT): 74.7 ml Reading Physician:02:05 PM
== END ==
PROVIDERS: PCP Family Medicine; Referring Provider Family Medicine; Visit Provider Family Medicine
DX: I26.92 Saddle embolus of pulmonary artery without acute cor pulmonale (principal); I10 Essential (primary) hypertension
CPT/HCPCS: 93306

== ENCOUNTER → 2024-11-13 12:40 | Outpatient (CLI) | payer MEDICARE, MEDICAID, SELFPAY ==
[2020-06-07 14:32] VITALS: BMI 29.5
--- NOTE | 2024-12-04 10:59 | DIAB.MNT ---
Initial Diabetes Medical Nutrition Therapy Assessment Name: Leland Travis Date: 11/13/24 Time: 1-2p Dx: Type II Diabetes Provider: Xiao Matthews Learning Style: Listening Leland presents for initial Dm visit. Reports he just found out he has DM. States DM runs in his family but unclear who. Not taking Metformin at this time. use to take a few months ago in 2024. Cut out soda since April 2024. Eats 2x per day most days. main concern is salt and sugar intake per report. Wants to know how important is it to make changes. UTD on eye appt 2 weeks ago. Diet Recall: 5-6a: coffee black with blueberry muffin OR banana OR other fruit ie 2c grapes 1p: nothing or fast food burger with a few fries OR chx sandwich 6p: instant ramen +/- grapes OR cup or noodles OR bbq OR 1-2 brauts with bun OR 2-3c pasta with apples, raisins, veggies, chicken or shrimp water 5x 16.9oz pom and blueberry juice x 16oz Anthropometrics: Ht: 66 Wt: 216# Physical Activity: sciatica nerve is a barrier, but tries to stay active. Walking daily x 20-40 mins. Self-Monitoring Blood Glucose: None Diabetes Medications: Metformin 1000mg -- not taking Pertinent Labs: HgA1c: 7% 06/2024 Past Medical History: (Last Updated 09/17/24 @ 11:27 by Gavin Hagen DO) Acne (~1976) Anxiety (~2011) Carpal tunnel syndrome (~2011) Chicken pox (~1965) DVT (deep venous thrombosis) -Rt Leg (records from [facility]) Encounter for subsequent annual wellness visit (AWV) in Medicare patient Fractures (~2003) History of blood clots (~04/2024) Hyperlipidemia Hypertension (~2003) IFG (impaired fasting glucose) Measles (~1963) Mumps (~1966) Ruptured tympanic membrane (~2006) Shoulder pain (~2003) Nutrition Rx: Carbohydrates: Meal: 45g Snack:15-30g Nutrition Diagnosis: - Excessive CHO intake r/t nutrition knowledge deficit aeb diet recall - Self monitoring deficit r/t stage of change aeb not currently checking BG Intervention: This participant was very receptive. Provided appropriate educational handouts. Discussed the following topics: Completed intake assessment. Discussed barriers to care. Pathophysiology of T2DM HgA1c, its correlation to blood glucose numbers, and rationale for goal Importance of self-monitoring, how often, and when to check. Suggested checking at different times to evaluate meals Plate Method, impact of macronutrients on blood sugar, meal timing, carbohydrate counting, pairing macronutrients and spreading out carbohydrates for better blood glucose management Recommended servings for carbohydrates at meals and snacks Heart health nutrition Brainstormed appropriate meal plan based on food preferences Role of physical activity and following provider guidelines for safety Importance of DM medications and action of Metformin Created SMART goals for patient self-care and success. Goals: Bring blood sugar meter next visit Look for low sugar or sf juices Try Lebanese yogurt Follow-up: ISMA GOODMAN follow-up in 3-4 weeks Lisa Sebastian RDN, MAXINE Certified Diabetes Care and Sales Route Driver P: [phone] Thank you for this referral
== END ==
PROVIDERS: PCP Family Medicine; Referring Provider Family Medicine
DX: E11.9 Type 2 diabetes mellitus without complications (principal); Z71.3 Dietary counseling and surveillance; Z83.3 Family history of diabetes mellitus
CPT/HCPCS: 97802

== ENCOUNTER → 2025-01-08 13:44 | Outpatient (CLI) | payer MEDICARE, MEDICAID, SELFPAY ==
[2020-06-07 14:32] VITALS: BMI 29.5
--- NOTE | 2025-02-05 16:51 | DIAB.MNTFU ---
Follow-up Diabetes Medical Nutrition Therapy Assessment Name: Leland Travis Date: 01/08/25 Time: 210-240p Dx: Type II Diabetes Provider: Xiao Ha presents for follow-up Dm visit. Reports he is still hesitant about starting Metformin. States he has difficulty with getting blood sample for meter, so not checks. Needing review of label reading. Diet Recall: 630a: coffee black with blueberry muffin OR bagel with butter. 11-2: fruit OR sandwich with pickle 7-9p: Canned ravioli with flour tortilla and wallisian yogurt or cottage cheese with fruit Sf juice and water Anthropometrics: Ht: 66 Wt: 218# 11/2024 Physical Activity: sciatica nerve is a barrier, but tries to stay active. Walking daily x 20-40 mins. Self-Monitoring Blood Glucose: None Diabetes Medications: Metformin 1000mg -- not taking Pertinent Labs: HgA1c: 7% 06/2024 Past Medical History: (Last Updated 09/17/24 @ 11:27 by Gavin Hagen DO) Acne (~1976) Anxiety (~2011) Carpal tunnel syndrome (~2011) Chicken pox (~1965) DVT (deep venous thrombosis) -Rt Leg (records from [facility]) Encounter for subsequent annual wellness visit (AWV) in Medicare patient Fractures (~2003) History of blood clots (~04/2024) Hyperlipidemia Hypertension (~2003) IFG (impaired fasting glucose) Measles (~1963) Mumps (~1966) Ruptured tympanic membrane (~2006) Shoulder pain (~2003) Nutrition Rx: Carbohydrates: Meal: 45g Snack:15-30g Nutrition Diagnosis: - Excessive CHO intake r/t nutrition knowledge deficit aeb diet recall - Self monitoring deficit r/t stage of change and needing review of technique aeb not currently checking BG Intervention: This participant was very receptive. Provided appropriate educational handouts. Discussed the following topics: Titration of Metformin Strategies for reducing SE with Metformin Label reading for net CHO Carb portions at meals Meal alina mckinney Created SMART goals for patient self-care and success. Goals: Bring blood sugar meter next visit- not met Look for low sugar or sf juices- met Try Kazakh yogurt - met Titrate Metformin up over the next few weeks- new Bring meter- new Read food labels for net CHO- new Add protein bar to afternoon- new Move yogurt or cottage cheese/fruit at dinner 3 hours later- new Follow-up: ISMA GOODMAN follow-up in 3-4 weeks Lisa Sebastian RDN, [facility] Certified Diabetes Care and [employer] P: [phone] Thank you for this referral
== END ==
LOC: DIET 13:45
PROVIDERS: PCP Family Medicine; Referring Provider Family Medicine
DX: E11.9 Type 2 diabetes mellitus without complications (principal); Z71.3 Dietary counseling and surveillance
CPT/HCPCS: 97803

== ENCOUNTER 2025-02-16 12:44 | Emergency (ER) | payer OTHER, SELFPAY ==
[2020-06-07 14:32] VITALS: BMI 29.5
[2025-02-16 12:57] VITALS: BP 173/90; PULSE 83; RESP 14; TEMP 36.8; O2SAT 99; BMI 31.0
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
[2025-02-16] MEDS: ACETAMINOPHEN 325 MG TABLET 975 MG PO (14:09)
[2025-02-16] MEDS: LIDOCAINE 5% PATCH 1 EACH TOP (14:09)
[2025-02-16] MEDS: methocarbamoL 500 MG TABLET 1000 MG PO (14:12)
[2025-02-16 16:00] VITALS: BP 141/76; PULSE 80; RESP 16; O2SAT 98
== END 2025-02-16 16:02 | disposition home or self-care (01) ==
PROVIDERS: Emergency Provider Physician Assistant; PCP Family Medicine
DX: S39.012A Strain of muscle, fascia and tendon of lower back, initial encounter (principal); M16.12 Unilateral primary osteoarthritis, left hip; V49.9XXA Car occupant (driver) (passenger) injured in unspecified traffic accident, initial encounter; Z79.01 Long term (current) use of anticoagulants
CPT/HCPCS: 73502; 99283; 99284

== ENCOUNTER → 2025-03-20 14:35 | Outpatient (CLI) | payer MEDICARE, MEDICAID, SELFPAY ==
[2020-06-07 14:32] VITALS: BMI 29.5
--- NOTE | 2025-03-20 14:37 | DI.RAD.S_ITS ---
PROCEDURE: XR SHOULDER LT MIN 2V INDICATIONS: posterior shoulder pain acute on chronic TECHNIQUE: 4 views of the shoulder were acquired. COMPARISON: None. FINDINGS: Bones: No fractures or dislocations. Moderate acromioclavicular and severe glenohumeral joint degeneration. Superior migration of the humeral head. No suspicious bony lesions. Visualized ribs appear intact. Soft tissues: No suspicious soft tissue calcifications. IMPRESSION: 1. No acute osseous abnormalities are identified. 2. Moderate acromioclavicular and severe glenohumeral joint degeneration. 3. Superior migration of the humeral head consistent with rotator cuff pathology and/or muscle atrophy. If indicated MRI could be performed to further evaluate the soft tissues. Dictated by: Juan José Montalvo M.D. on 03/21/2025 at 10:36 Approved by: Juan José Montalvo M.D. on 03/21/2025 at 10:37
== END ==
PROVIDERS: PCP Family Medicine; Referring Provider Family Medicine; Visit Provider Physician Assistant
DX: S49.92XA Unspecified injury of left shoulder and upper arm, initial encounter (principal); M19.012 Primary osteoarthritis, left shoulder; X58.XXXA Exposure to other specified factors, initial encounter
CPT/HCPCS: 73030

== ENCOUNTER 2025-03-21 07:17 | Emergency (ER) | payer MEDICARE, MEDICAID, SELFPAY ==
[2020-06-07 14:32] VITALS: BMI 29.5
[2025-03-21 07:23] VITALS: BP 231/107; PULSE 88; RESP 18; TEMP 36.4; O2SAT 97; BMI 32.3
--- NOTE | 2025-03-21 07:34 | ED.GENADULT ---
HPI - General Adult General Chief complaint: Dental/Oral Stated complaint: Right ear pain Time Seen by Provider: 03/21/25 07:22 Source: patient Mode of arrival: Ambulatory History of Present Illness HPI narrative: 64-year-old gentleman with a history of diabetes, hypertension, prior pulmonary embolism states that he currently is taking his apixaban, has chosen not to continue taking his metformin apparently is prescribed both losartan and rosuvastatin but was not given these medications the last time he went to the pharmacy. He notes that his blood pressures have been significantly elevated over the last couple of weeks and he does have follow up appointment with his primary care physician in March. He presents today complaining of right ear pain. It started within the last 24 hours is significantly painful, he has tried gentle saline washes in the ear as well as some warm all of oil and has not that is ineffective for pain control. He also notes that he has some pain and tenderness along the right side of his jaw related to 1 of his posterior teeth. No fevers, shortness of breath, chest pain, palpitations, dyspnea. Related Data Previous Rx's Medication Instructions Recorded apixaban 5 mg tablet (Eliquis) 5 mg PO BID #60 tabs 11/07/24 losartan 100 mg tablet 100 mg PO DAILY blood pressure 12/14/24 #100 tabs metformin 500 mg tablet,extended 1,000 mg (2 x 500 mg) PO DAILY 12/14/24 release 24 hr diabetes #60 tabs rosuvastatin 20 mg tablet 20 mg PO DAILY cholesterol #100 12/14/24 tabs lidocaine 5 % topical patch 1 patch topical DAILY #30 ea 02/16/25 (Lidoderm) methocarbamol 500 mg tablet 500 mg PO TID PRN muscle spasm #30 02/16/25 tabs amoxicillin 500 mg capsule 500 mg PO TID #21 caps 03/21/25 losartan 100 mg tablet 100 mg PO DAILY #90 tabs 03/21/25 jfuitkzd-vktsefepj-dqhjjmdqd 3.5 3 drp EAR-RIGHT QID #10 mL 03/21/25 mg-10,000 unit/mL-1 % ear drops,susp rosuvastatin 20 mg tablet 20 mg PO DAILY #90 tabs 03/21/25 Allergies Allergy/AdvReac Type Severity Reaction Status Date / Time No Known Drug Allergies Allergy Verified 03/14/25 13:05 Review of Systems Review of Systems Narrative: Pertinent positive and negative findings as per HPI Patient History Medical History Noncompliance with medication regimen Encounter for subsequent annual wellness visit (AWV) in Medicare patient History of blood clots (~04/2024) Acne (~1976) Anxiety (~2011) Shoulder pain (~2003) Fractures (~2003) Carpal tunnel syndrome (~2011) Mumps (~1966) Measles (~1963) Chicken pox (~1965) Ruptured tympanic membrane (~2006) DVT (deep venous thrombosis) Hyperlipidemia IFG (impaired fasting glucose) Hypertension (~2003) Surgical History Anesthesia History of appendectomy (~1965) S/P rotator cuff repair (~01/2003) Family History Father Cancer Diabetes mellitus Hyperlipidemia Hypertension Stroke Social History household members: significant other Smoking Status: Current every day smoker alcohol intake: never Smoking Status: Current every day smoker alcohol intake frequency: holidays/special occasions only Exam Initial Vital Signs Initial Vital Signs: Vital Signs Temperature 97.6 F 03/21/25 07:23 Pulse Rate 88 03/21/25 07:23 Respiratory Rate 18 03/21/25 07:23 Blood Pressure 231/107 H 03/21/25 07:23 Pulse Oximetry 97 03/21/25 07:23 Oxygen Delivery Method Room Air 03/21/25 07:23 General: Alert, rocking back and forth secondary to pain but appropriate and completely cooperative with exam ENT: External canal in the right side is somewhat erythematous, tympanic membrane is mildly erythematous but not bulging and there does not appear to be any serous or purulent fluid in the middle ear. He does have some swelling along the right side of his jaw. His 1st and 2nd molar on the right side are present with a pre molar on the right side fractured at the gumline. There is erythema around all 3 teeth without obvious pointing abscess. He does have minor cervical adenopathy on the right side Respiratory: Able to speak in full sentences, no obvious respiratory distress Skin: No obvious rashes, warm and dry Neurologic: Grossly intact no obvious asymmetries or abnormalities Psych: appropriate insight and affect, cooperative Course Vital Signs Vital signs: Vital Signs - 8 hr 03/21/25 07:23 Temperature 97.6 F Pulse Rate 88 Respiratory Rate 18 Blood Pressure 231/107 H Pulse Oximetry 97 Oxygen Delivery Method Room Air Medical Decision Making MDM Narrative Medical decision making narrative: 64-year-old gentleman presents with right jaw and ear pain present for 24 hours increasing in pain. Significant history of hypertension, has been taking blood pressures at home and they are consistently in the 230/110 range such as we are seeing in the emergency department. Presumably diabetes and hyperlipidemia. Medical records indicate medical noncompliance He states that he did see his primary care physician earlier this month who discussed blood pressure medications however we when he went to [facility] at the pharmacy the losartan and rosuvastatin were not given to him. On exam he has a broken pre molar on the right lower portion of his jaw, minor erythema to the external ear canal in the surface of the tympanic membrane. Discussion: 64-year-old gentleman with dental infection will be treated with amoxicillin, otitis externa treated with Cortisporin otic drops. We discussed his significantly elevated blood pressures well as his cholesterol medications. I have done new prescriptions for both losartan and his rosuvastatin and he is willing to start them. Suggested he start them prior to his follow up with his primary care physician coming up in the next couple of weeks so they have information to discuss regarding blood pressure control. At this point he is not having any signs or symptoms from his currently asymptomatic severe hypertension. No further workup, imaging or hospitalization is indicated and he is safe for discharge Discharge Plan Departure Patient Disposition: Home Clinical Impression: Dental infection Hypertension Qualifiers: Hypertension type: primary hypertension Qualified Code(s): I10 - Essential (primary) hypertension External otitis Qualifiers: Otitis externa type: unspecified type Chronicity: acute Laterality: right Qualified Code(s): H60.501 - Unspecified acute noninfective otitis externa, right ear Instructions: DI for High Blood Pressure, DI for Otitis Externa, DI for Dental Pain Activity Restrictions/Additional Instructions: Thank you for coming in today I think your original pain problem is actually a dental infection, the premolar on your right side is broken off at the root and I believe this is the source. Scheduling a dental appointment is the most appropriate intervention. Pulling that broken tooth can help with further problems. There was also a very high correlation with dental infections and worsening overall general medical conditions like blood pressure, cholesterol and diabetes. I have given you a prescription for amoxicillin, please complete 7 days of this. Regarding the ear pain, I am not sure if you are beginning to have a small infection in the external ear or if this is related to the remedies you have been trying. Either way, I am going to give you a prescription for Cortisporin ear drops. This has a small amount of hydrocortisone which helps with the swelling in the pain as well as a topical antibiotic. With your blood pressure, this is way too high and is going to cause problems in every organ system of your body. I do not want to see you back in the ER again with a giant heart attack. Dr. Quinn looks like he had prescribed 100 mg of losartan. I am not sure what the pharmacy mix up was but I am going to make sure that this prescriptions available for you and I would suggest that you restarted as soon as you pick it up. Please take in all of the blood pressure readings that you have done so far as well as the readings after you start the losartan so that you are visit with Dr. Quinn in the next weeks can be more effective. Similarly it also looks like he prescribed a cholesterol medicine, rosuvastatin. I will make sure that is available for you to [facility] as well Using 400 mg of ibuprofen (2 lluq-xhv-izsdlhh pills) and 1 Tylenol every 6 hours can be very helpful in controlling pain. Please make sure you keep your appointment with Dr. Quinn If you find that you are getting worse or develop any new symptoms, please feel free to return to the emergency department for further evaluation. All prescriptions were at [facility] Prescriptions: New amoxicillin 500 mg capsule 500 mg PO TID Qty: 21 0RF yzhbgpof-ptrjpnqpa-MG 3.5-10,000-1 mg/mL-unit/mL-% drops,suspension 3 drp EAR-RIGHT QID Qty: 10 0RF losartan 100 mg tablet 100 mg PO DAILY Qty: 90 0RF rosuvastatin 20 mg tablet 20 mg PO DAILY Qty: 90 0RF No Action Eliquis 5 mg tablet 5 mg PO BID Qty: 60 11RF metformin 500 mg tablet extended release 24 hr 1,000 mg PO DAILY Qty: 60 11RF rosuvastatin 20 mg tablet 20 mg PO DAILY Qty: 100 3RF losartan 100 mg tablet 100 mg PO DAILY Qty: 100 3RF methocarbamol 500 mg tablet 500 mg PO TID PRN (Reason: muscle spasm) Qty: 30 0RF lidocaine [Lidoderm] 5 % adhesive patch,medicated 1 patch topical DAILY Qty: 30 0RF Rx Instructions: leave on most painful area for up to 12 hrs Referrals: Gavin Hagen DO [Primary Care Provider] - Stand Alone Forms: Patient Portal/API/Survey
[2025-03-21] MEDS: OXYCODONE/ACETAMINOPHEN 5/325 TABLET 1 TAB PO (07:48)
[2025-03-21] MEDS: IBUPROFEN 400 MG TABLET PO (07:48)
== END 2025-03-21 08:14 | disposition home or self-care (01) ==
PROVIDERS: Emergency Provider Emergency Medicine; PCP Family Medicine
DX: K04.7 Periapical abscess without sinus (principal); I10 Essential (primary) hypertension; H60.501 Unspecified acute noninfective otitis externa, right ear
CPT/HCPCS: 99283

== ENCOUNTER → 2025-03-27 14:02 | Outpatient (CLI) | payer MEDICARE, MEDICAID, SELFPAY ==
[2020-06-07 14:32] VITALS: BMI 29.5
[2025-03-27 14:32] LABS: Hemoglobin 14.9 g/dL (13.5-17.5); Mean Corpuscular HGB Conc 33.8 % (30-36); Mean Corpuscular Hemoglobin 29.3 PG (26-34); Mean Corpuscular Volume 86.9 fL (80-100); Platelet Count 243 X10^3/uL (150-400); Red Blood Cell Count 5.07 X10^6/uL (4.5-5.9); Red Cell Distribution Width 13.1 % (11.6-14.8); White Blood Cell Count 7.1 X10^3/uL (4.5-11.0)
[2025-03-27 14:42] LABS: Hemoglobin A1C% w Est Avg Glu 6.3 % (4.0-6.0)
[2025-03-27 14:45] LABS: Cholesterol 154 mg/dL (140-199); HDL Cholesterol 43 mg/dL (40-60); LDL Cholesterol Calculated 90 mg/dL (<100); Triglycerides 104 mg/dL (35-150)
[2025-03-27 15:15] LABS: Prostate Specific Antigen Scrn 1.29 ng/mL (0.1-4.0)
[2025-03-27 19:12] LABS: Hep C Virus Ab w/Reflex Quant NEGATIVE s/c (NEGATIVE)
== END ==
PROVIDERS: PCP Family Medicine; Referring Provider Family Medicine; Visit Provider Family Medicine
DX: Z00.00 Encounter for general adult medical examination without abnormal findings (principal); R07.9 Chest pain, unspecified; E11.9 Type 2 diabetes mellitus without complications; Z12.5 Encounter for screening for malignant neoplasm of prostate; E78.5 Hyperlipidemia, unspecified; I10 Essential (primary) hypertension
CPT/HCPCS: 36415; 80061; 83036; 85027; 86803; G0103

== ENCOUNTER 2025-04-21 01:51 | Emergency (ER) | payer MEDICARE, MEDICAID, SELFPAY ==
[2020-06-07 14:32] VITALS: BMI 29.5
[2025-04-21] VITALS (12 sets, daily range): BP systolic 136–171; BP diastolic 60–83; PULSE 68–87; RESP 13–20; TEMP 36.9; O2SAT 92–96; BMI 31.4
--- NOTE | 2025-04-21 01:59 | EKG_ITS ---
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
--- NOTE | 2025-04-21 02:04 | DI.RAD.S_ITS ---
PROCEDURE: XR CHEST 1V INDICATIONS: Chest tightness TECHNIQUE: One view of the chest was acquired. COMPARISON: [facility], CR, XR CHEST 1V, 05/15/2024, 15:12. [facility], CR, XR CHEST 1V, 05/10/2024, 3:21. FINDINGS AND IMPRESSION: Low lung volumes. No airspace consolidation or pleural effusion on this single view study. Normal heart size. Degenerative osseous changes. No significant discrepancy from the preliminary report. Dictated by: Alban Mascorro M.D. on 04/21/2025 at 8:15 Approved by: Alban Mascorro M.D. on 04/21/2025 at 8:16
[2025-04-21 02:13] LABS: Add Manual Diff / Slide Review NO; Basophils Absolute Auto 0 /uL (0-100); Basophils Percent Auto 0.5 % (0-2); Eosinophils Absolute Auto 200 /uL (0-450); Eosinophils Percent Auto 2.2 % (2-4); Hemoglobin 14.5 g/dL (13.5-17.5); Lymphocytes Absolute Auto 3700 /uL (1100-4500); Mean Corpuscular HGB Conc 34.4 % (30-36); Mean Corpuscular Hemoglobin 29.3 PG (26-34); Mean Corpuscular Volume 85.1 fL (80-100); Monocytes Absolute Auto 600 /uL (0-900); Monocytes Percent Auto 6.4 % (3-14); Neutrophils Absolute Auto 4700 /uL (1500-7000); Neutrophils Percent Auto 50.9 % (50-75); Platelet Count 300 X10^3/uL (150-400); Red Blood Cell Count 4.94 X10^6/uL (4.5-5.9); Red Cell Distribution Width 13.5 % (11.6-14.8); White Blood Cell Count 9.3 X10^3/uL (4.5-11.0)
--- NOTE | 2025-04-21 02:18 | ED.CHESTPAIN ---
HPI - Chest Pain General Chief Complaint: Chest Pain Stated Complaint: Chest Tightness Time Seen by Provider: 04/21/25 02:10 Source: patient Mode of arrival: Ambulatory Limitations: no limitations History of Present Illness HPI narrative: 64-year-old gentleman history of saddle pulmonary embolism on apixaban hypertension dyslipidemia and diabetes presents with midsternal chest pain radiating to the right side intermittently and off since 11:00 a.m. this morning that will last for a few minutes. Patient did not take anything for it, rates it 2/10 describes it as tightness in the chest dull but sharp ache at times. Other than what is stated 14 point review of system is negative. Related Data Previous Rx's ?Medication ?Instructions ?Recorded apixaban 5 mg tablet (Eliquis) 5 mg PO BID #60 tabs 11/07/24 losartan 100 mg tablet 100 mg PO DAILY blood pressure 12/14/24 #100 tabs metformin 500 mg tablet,extended 1,000 mg (2 x 500 mg) PO DAILY 12/14/24 release 24 hr diabetes #60 tabs rosuvastatin 20 mg tablet 20 mg PO DAILY cholesterol #100 12/14/24 tabs lidocaine 5 % topical patch 1 patch topical DAILY #30 ea 02/16/25 (Lidoderm) methocarbamol 500 mg tablet 500 mg PO TID PRN muscle spasm #30 02/16/25 tabs amoxicillin 500 mg capsule 500 mg PO TID #21 caps 03/21/25 losartan 100 mg tablet 100 mg PO DAILY #90 tabs 03/21/25 dnkrudmu-radepawrz-mtztsfdcf 3.5 3 drp EAR-RIGHT QID #10 mL 03/21/25 mg-10,000 unit/mL-1 % ear drops,susp rosuvastatin 20 mg tablet 20 mg PO DAILY #90 tabs 03/21/25 Allergies Allergy/AdvReac Type Severity Reaction Status Date / Time No Known Drug Allergies Allergy Verified 04/21/25 01:59 Review of Systems Review of Systems ROS Unobtainable: All systems reviewed & are unremarkable except as noted in HPI and below Patient History Medical History Noncompliance with medication regimen Encounter for subsequent annual wellness visit (AWV) in Medicare patient History of blood clots (~04/2024) Acne (~1976) Anxiety (~2011) Shoulder pain (~2003) Fractures (~2003) Carpal tunnel syndrome (~2011) Mumps (~1966) Measles (~1963) Chicken pox (~1965) Ruptured tympanic membrane (~2006) DVT (deep venous thrombosis) Hyperlipidemia IFG (impaired fasting glucose) Hypertension (~2003) Surgical History Anesthesia History of appendectomy (~1965) S/P rotator cuff repair (~01/2003) Family History Father Cancer Diabetes mellitus Hyperlipidemia Hypertension Stroke Social History household members: significant other Smoking Status: Never smoker alcohol intake: never Smoking Status: Never smoker alcohol intake frequency: holidays/special occasions only Exam Narrative Exam Narrative: GENERAL: [64] year old patient appears stated age. Well-developed patient, in mild distress. HEAD: Atraumatic. Normocephalic. EYES: Pupils equal round and reactive. Extraocular motions intact. No scleral icterus. No injection or drainage. ENT: Nose without bleeding, purulent drainage. Throat without erythema, tonsillar hypertrophy or exudate. Airway patent. NECK: Trachea midline. Non tender CARDIOVASCULAR: Regular rate and rhythm without murmurs, gallops, or rubs. RESPIRATORY: Clear to auscultation. Breath sounds equal bilaterally. No wheezes, rales, or rhonchi. GASTROINTESTINAL: Abdomen soft, non-tender, nondistended. EXTREMITIES: No edema or joint tenderness. BACK: Nontender without deformity or crepitance. No flank tenderness. NEURO: AOx3. SKIN: No rash or erythema of visible areas Initial Vital Signs Initial Vital Signs: Vital Signs Temperature 98.5 F 04/21/25 01:59 Pulse Rate 87 04/21/25 01:59 Respiratory Rate 20 04/21/25 01:59 Blood Pressure 167/82 H 04/21/25 01:59 Pulse Oximetry 96 04/21/25 01:59 Oxygen Delivery Method Room Air 04/21/25 01:59 Scores HEART Score Heart Score history: Slightly Suspicious Heart Score EKG: Non-Specific repolarization disturbance Heart Score Age: > or = 65 years old Heart Score risk factors: > 3 risk factors or hx of atherosclerotic disease Heart Score troponin: < or = to normal limit Heart Score Total: 5 Course Orders Ordered: ED Orders 04/21/25 01:54 EKG-12 Lead Stat 04/21/25 02:04 XR chest 1V Stat 04/21/25 02:05 Complete Blood Count AUTO DIFF Stat Comprehensive Metabolic Panel Stat Lipase Stat Magnesium Stat NT-proBNP (BNP-Adult 18+) Stat PTT Partial Thromboplastin Ivan Stat Prothrombin Time INR Stat Troponin & CK Cardiac Panel Stat Discontinued Medications Aspirin (Aspirin 81 Mg Chew Tab) 324 mg PO NOW ONE Stop: 04/21/25 02:05 Vital Signs Vital signs: Vital Signs - 8 hr 04/21/25 01:59 Temperature 98.5 F Pulse Rate 87 Respiratory Rate 20 Blood Pressure 167/82 H Pulse Oximetry 96 Oxygen Delivery Method Room Air MDM - Chest Pain Lab Data 04/21/25 02:05 04/21/25 02:05 Labs: Lab Results 04/21/25 Range/Units 02:05 WBC 9.3 (4.5-11.0) X10^3/uL RBC 4.94 (4.5-5.9) X10^6/uL Hgb 14.5 (13.5-17.5) g/dL Hct 42.0 (41-53) % MCV 85.1 (80-100) fL MCH 29.3 (26-34) PG MCHC 34.4 (30-36) % RDW 13.5 (11.6-14.8) % Plt Count 300 (150-400) X10^3/uL Neut % (Auto) 50.9 (50-75) % Lymph % (Auto) 40.0 (25-40) % [place] % (Auto) 6.4 (3-14) % Eos % (Auto) 2.2 (2-4) % Baso % (Auto) 0.5 (0-2) % Neut # (Auto) 4700 (4386-7409) /uL Lymph # (Auto) 3700 (8504-8924) /uL [place] # (Auto) 600 (0-900) /uL Eos # (Auto) 200 (0-450) /uL Baso # (Auto) 0 (0-100) /uL ECG Data Interpretation: NSR HR 83 VT 166 QRS [address]-t wave change Unchanged from 09/17/24 MDM Narrative Medical decision making narrative: All lab work, vital signs, nurse triage note, medication list, previous ER visits, and all imaging studies reviewed. Patient given aspirin and 2 nitro here and is pain-free. Two sets of troponin are negative and normal. EKG showed normal sinus rhythm with no STT wave changes. Heart score of 5. Differential diagnosis includes STEMI NSTEMI unstable angina GERD anxiety chest wall pain pancreatitis. Will have patient follow up with PCP on Tuesday. Discharge Plan Departure Patient Disposition: Home Clinical Impression: Chest pain Instructions: DI for Chest Pain Activity Restrictions/Additional Instructions: Return with new or worsening symptoms. Follow up with PCP this coming week for follow up. Prescriptions: No Action Eliquis 5 mg tablet 5 mg PO BID Qty: 60 11RF metformin 500 mg tablet extended release 24 hr 1,000 mg PO DAILY Qty: 60 11RF rosuvastatin 20 mg tablet 20 mg PO DAILY Qty: 100 3RF losartan 100 mg tablet 100 mg PO DAILY Qty: 100 3RF methocarbamol 500 mg tablet 500 mg PO TID PRN (Reason: muscle spasm) Qty: 30 0RF lidocaine [Lidoderm] 5 % adhesive patch,medicated 1 patch topical DAILY Qty: 30 0RF Rx Instructions: leave on most painful area for up to 12 hrs amoxicillin 500 mg capsule 500 mg PO TID Qty: 21 0RF pnwwwhgy-zdtpglgew-JS 3.5-10,000-1 mg/mL-unit/mL-% drops,suspension 3 drp EAR-RIGHT QID Qty: 10 0RF losartan 100 mg tablet 100 mg PO DAILY Qty: 90 0RF rosuvastatin 20 mg tablet 20 mg PO DAILY Qty: 90 0RF Referrals: Gavin Hagen DO [Primary Care Provider, Family Practice] Stand Alone Forms: Patient Portal/API
[2025-04-21 02:20] LABS: Prothrombin Time 11.3 SECONDS (9.4-12.5)
[2025-04-21 02:23] LABS: PTT Partial Thromboplastin Tim 32 SECONDS (25.1-36.5)
[2025-04-21 02:24] LABS: Alanine Aminotransferase 51 IU/L (<50); Albumin 4.2 g/dL (3.5-5.0); Albumin Globulin Ratio 1.3 (1.0-2.8); Alkaline Phosphatase 106 U/L (38-126); Aspartate Aminotransferase 33 IU/L (17-59); BUN Creatinine Ratio 29.5 (6-22); Bilirubin Total 0.5 mg/dL (0.2-1.3); Blood Urea Nitrogen 28 mg/dL (9-20); Carbon Dioxide 23 mmol/L (22-32); Chloride 105 mmol/L (98-107); Creatine Kinase 76 U/L (55-170); Estimated Glomerular Filt Rate > 60 mL/min (>60); Globulin 3.3 g/dL (1.7-4.1); Glucose 205 mg/dL (70-99); HEMOLYSIS < 15 (0-50); Lipase 57 U/L (23-300); Magnesium 1.8 mg/dL (1.6-2.3); Potassium 3.9 mmol/L (3.4-5.1); Sodium 137 mmol/L (137-145); Total Protein 7.5 g/dL (6.3-8.2)
[2025-04-21 02:36] LABS: NT-proBNP (BNP-Adult 18+) 22 pg/mL (<125); Troponin I < 0.012 ng/mL (0.01-0.034)
[2025-04-21] MEDS: ASPIRIN EC 325 MG TABLET PO (02:42)
[2025-04-21] MEDS: NITROGLYCERIN 0.4 MG SL TAB SL ×2 (02:43→02:58)
[2025-04-21 04:37] LABS: Troponin I < 0.012 ng/mL (0.01-0.034)
== END 2025-04-21 05:00 | disposition home or self-care (01) ==
PROVIDERS: Emergency Provider Family Medicine; Family Provider Family Medicine; PCP Family Medicine
DX: R07.9 Chest pain, unspecified (principal)
CPT/HCPCS: 36415; 71045; 80053; 82550; 83690; 83735; 83880; 84484; 85025; 85610; 85730; 93005; 93010; 99284

== ENCOUNTER 2025-05-02 14:05 | Emergency (ER) | payer MEDICARE, MEDICAID, SELFPAY ==
[2020-06-07 14:32] VITALS: BMI 29.5
[2025-05-02 14:06] VITALS: BP 162/77; PULSE 92; RESP 15; TEMP 36.6; O2SAT 99; BMI 31.4
--- NOTE | 2025-05-02 14:11 | DI.RAD.S_ITS ---
PROCEDURE: XR CHEST 1V INDICATIONS: Chest Pain TECHNIQUE: One view of the chest was acquired. COMPARISON: [facility], CR, XR CHEST 1V, 04/21/2025, 2:04. FINDINGS: Surgical changes and devices: None. Lungs and pleura: Lungs are clear. No pleural effusions or pneumothorax. Mediastinum: Mediastinal contours appear normal. Heart size is normal. Bones and chest wall: No suspicious bony lesions. Overlying soft tissues appear unremarkable. IMPRESSION: No acute cardiopulmonary pathology. Dictated by: Kevin Morris M.D. on 05/02/2025 at 15:38 Approved by: Kevin Morris M.D. on 05/02/2025 at 15:39
--- NOTE | 2025-05-02 14:16 | EKG_ITS ---
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
[2025-05-02 14:18] VITALS: PULSE 87; RESP 19; O2SAT 96
[2025-05-02 14:28] LABS: Add Manual Diff / Slide Review NO; Hematocrit 44.0 % (41-53); Hemoglobin 15.0 g/dL (13.5-17.5); Lymphocytes Absolute Auto 2000 /uL (1100-4500); Mean Corpuscular HGB Conc 34.0 % (30-36); Mean Corpuscular Hemoglobin 28.8 PG (26-34); Mean Corpuscular Volume 84.6 fL (80-100); Platelet Count 250 X10^3/uL (150-400)
[2025-05-02 14:29] VITALS: BP 140/72; PULSE 85; RESP 18; O2SAT 95
[2025-05-02 14:30] VITALS: BP 142/71; PULSE 83; RESP 18; O2SAT 93
[2025-05-02 14:36] LABS: INR 1.2 (0.9-1.3); Prothrombin Time 13.5 SECONDS (9.4-12.5)
--- NOTE | 2025-05-02 14:37 | ED.CHESTPAIN ---
HPI - Chest Pain General Chief Complaint: Chest Pain Stated Complaint: SOB in pain Time Seen by Provider: 05/02/25 14:06 Source: patient Mode of arrival: Ambulatory Limitations: no limitations Related Data Previous Rx's ?Medication ?Instructions ?Recorded apixaban 5 mg tablet (Eliquis) 5 mg PO BID #60 tabs 11/07/24 losartan 100 mg tablet 100 mg PO DAILY blood pressure 12/14/24 #100 tabs metformin 500 mg tablet,extended 1,000 mg (2 x 500 mg) PO DAILY 12/14/24 release 24 hr diabetes #60 tabs rosuvastatin 20 mg tablet 20 mg PO DAILY cholesterol #100 12/14/24 tabs lidocaine 5 % topical patch 1 patch topical DAILY #30 ea 02/16/25 (Lidoderm) methocarbamol 500 mg tablet 500 mg PO TID PRN muscle spasm #30 02/16/25 tabs amoxicillin 500 mg capsule 500 mg PO TID #21 caps 03/21/25 losartan 100 mg tablet 100 mg PO DAILY #90 tabs 03/21/25 jfhelxlo-mxflpezqp-evwrwbike 3.5 3 drp EAR-RIGHT QID #10 mL 03/21/25 mg-10,000 unit/mL-1 % ear drops,susp rosuvastatin 20 mg tablet 20 mg PO DAILY #90 tabs 03/21/25 Allergies Allergy/AdvReac Type Severity Reaction Status Date / Time No Known Drug Allergies Allergy Verified 05/02/25 14:18 Patient History Medical History Noncompliance with medication regimen Encounter for subsequent annual wellness visit (AWV) in Medicare patient History of blood clots (~04/2024) Acne (~1976) Anxiety (~2011) Shoulder pain (~2003) Fractures (~2003) Carpal tunnel syndrome (~2011) Mumps (~1966) Measles (~1963) Chicken pox (~1965) Ruptured tympanic membrane (~2006) DVT (deep venous thrombosis) Hyperlipidemia IFG (impaired fasting glucose) Hypertension (~2003) Surgical History Anesthesia History of appendectomy (~1965) S/P rotator cuff repair (~01/2003) Family History Father Cancer Diabetes mellitus Hyperlipidemia Hypertension Stroke Social History household members: significant other Smoking Status: Unknown if ever smoked alcohol intake: never Smoking Status: Unknown if ever smoked alcohol intake frequency: holidays/special occasions only Exam Initial Vital Signs Initial Vital Signs: Vital Signs Temperature 97.8 F 05/02/25 14:06 Pulse Rate 92 H 05/02/25 14:06 Respiratory Rate 15 05/02/25 14:06 Blood Pressure 162/77 H 05/02/25 14:06 Pulse Oximetry 99 05/02/25 14:06 Oxygen Delivery Method Room Air 05/02/25 14:06 Course Orders Ordered: ED Orders 05/02/25 14:11 XR chest 1V Stat EKG-12 Lead Stat 05/02/25 14:18 Complete Blood Count AUTO DIFF Stat Comprehensive Metabolic Panel Stat Lipase Stat Magnesium Stat NT-proBNP (BNP-Adult 18+) Stat PTT Partial Thromboplastin Ivan Stat Prothrombin Time INR Stat Troponin & CK Cardiac Panel Stat Discontinued Medications Aspirin (Aspirin 81 Mg Chew Tab) 324 mg PO NOW ONE Stop: 05/02/25 14:12 Vital Signs Vital signs: Vital Signs - 8 hr 05/02/25 14:06 05/02/25 14:18 05/02/25 14:29 Temperature 97.8 F Pulse Rate 92 H 87 Respiratory Rate 15 19 Blood Pressure 162/77 H 140/72 Pulse Oximetry 99 96 Oxygen Delivery Method Room Air 05/02/25 14:29 05/02/25 14:30 Temperature Pulse Rate 85 Respiratory Rate 18 Blood Pressure 142/71 H Pulse Oximetry 95 Oxygen Delivery Method MDM - Chest Pain Lab Data 05/02/25 14:18 05/02/25 14:18 Labs: Lab Results 05/02/25 Range/Units 14:18 WBC 15.8 H (4.5-11.0) X10^3/uL RBC 5.20 (4.5-5.9) X10^6/uL Hgb 15.0 (13.5-17.5) g/dL Hct 44.0 (41-53) % MCV 84.6 (80-100) fL MCH 28.8 (26-34) PG MCHC 34.0 (30-36) % RDW 13.4 (11.6-14.8) % Plt Count 250 (150-400) X10^3/uL Neut % (Auto) 80.2 H (50-75) % Lymph % (Auto) 13.0 L (25-40) % [place] % (Auto) 6.2 (3-14) % Eos % (Auto) 0.3 L (2-4) % Baso % (Auto) 0.3 (0-2) % Neut # (Auto) 84601 H (4904-9629) /uL Lymph # (Auto) 2000 (5670-8739) /uL [place] # (Auto) 1000 H (0-900) /uL Eos # (Auto) 100 (0-450) /uL Baso # (Auto) 100 (0-100) /uL Discharge Plan Departure Prescriptions: No Action Eliquis 5 mg tablet 5 mg PO BID Qty: 60 11RF metformin 500 mg tablet extended release 24 hr 1,000 mg PO DAILY Qty: 60 11RF rosuvastatin 20 mg tablet 20 mg PO DAILY Qty: 100 3RF losartan 100 mg tablet 100 mg PO DAILY Qty: 100 3RF methocarbamol 500 mg tablet 500 mg PO TID PRN (Reason: muscle spasm) Qty: 30 0RF lidocaine [Lidoderm] 5 % adhesive patch,medicated 1 patch topical DAILY Qty: 30 0RF Rx Instructions: leave on most painful area for up to 12 hrs amoxicillin 500 mg capsule 500 mg PO TID Qty: 21 0RF ayjpjqaz-pubjdozmb-MJ 3.5-10,000-1 mg/mL-unit/mL-% drops,suspension 3 drp EAR-RIGHT QID Qty: 10 0RF losartan 100 mg tablet 100 mg PO DAILY Qty: 90 0RF rosuvastatin 20 mg tablet 20 mg PO DAILY Qty: 90 0RF Referrals: Gavin Hagen DO [Primary Care Provider, Family Practice]
[2025-05-02 14:39] LABS: Alanine Aminotransferase 40 IU/L (<50); Albumin 4.5 g/dL (3.5-5.0); Albumin Globulin Ratio 1.3 (1.0-2.8); Alkaline Phosphatase 111 U/L (38-126); Blood Urea Nitrogen 14 mg/dL (9-20); Calcium 9.1 mg/dL (8.4-10.2); Carbon Dioxide 27 mmol/L (22-32); Chloride 100 mmol/L (98-107); Creatine Kinase 97 U/L (55-170); Estimated Glomerular Filt Rate > 60 mL/min (>60); Globulin 3.6 g/dL (1.7-4.1); Glucose 128 mg/dL (70-99); HEMOLYSIS < 15 (0-50); Lipase 41 U/L (23-300); Magnesium 1.8 mg/dL (1.6-2.3); PTT Partial Thromboplastin Tim 36 SECONDS (25.1-36.5); Potassium 4.0 mmol/L (3.4-5.1); Sodium 135 mmol/L (137-145); Total Protein 8.1 g/dL (6.3-8.2)
[2025-05-02 14:51] LABS: NT-proBNP (BNP-Adult 18+) 20 pg/mL (<125); Troponin I < 0.012 ng/mL (0.01-0.034)
--- NOTE | 2025-05-02 15:03 | DI.CT.S_ITS ---
PROCEDURE: CT ANGIO CHEST PE PROTOCOL INDICATIONS: CHEST PAIN TECHNIQUE: After the administration of intravenous contrast, 2 mm thick sections acquired from the pulmonary apices to the posterior costophrenic angles. 3-dimensional maximum intensity projection (MIP) coronal and sagittal reformats were then acquired through the thorax. For radiation dose reduction, the following was used: automated exposure control, adjustment of mA and/or kV according to patient size. COMPARISON: [facility], CT, CT ANGIO CHEST PE PROTOCOL, 09/18/2024, 17:40. FINDINGS: Image quality: Diagnostic. Pulmonary arteries: Pulmonary arteries are normal in size, and demonstrate no intraluminal filling defects to suggest central pulmonary embolism. Lower Neck: No enlarged lymph nodes. Thyroid: No thyroid nodules which require sonographic follow up, per consensus guidelines. Axillae: No enlarged lymph nodes. Chest Wall: Unremarkable. Bones: No aggressive appearing bony lesions. Lungs and Pleura: No pneumothorax or pleural effusions. Dependent atelectasis in posterior aspect of bilateral lung bases are seen. No consolidation or suspicious nodules. Heart: Heart size is normal. No pericardial effusion. Thoracic Vessels: No aortic aneurysm. Mediastinum and Tish: No enlarged lymph nodes. Esophagus: No wall thickening. No significant hiatal hernia. Upper Abdomen: Visualized upper abdomen solid organs and bowel loops appear normal. IMPRESSION: 1. No pulmonary embolus. 2. No acute cardiopulmonary process. Dictated by: Kevin Morris M.D. on 05/02/2025 at 16:24 Approved by: Kevin Morris M.D. on 05/02/2025 at 16:25
--- NOTE | 2025-05-02 15:05 | ED_ITS ---
HPI - Chest Pain General Chief Complaint: Chest Pain Stated Complaint: SOB in pain Time Seen by Provider: 05/02/25 14:06 Source: patient Mode of arrival: Ambulatory Limitations: no limitations History of Present Illness HPI narrative: Pleasant 65-year-old man with a history of saddle PE who denies history of coronary artery disease, COPD, and asthma presents to the ER because of chest pain which he awoke with this morning around 5:00 a.m.. He states that the chest pain was all around his chest and he does admit to substernal chest pain radiating to the back. He states that over the course of the day the chest pain has improved significantly from 9-10 out of 10 to 3/10 currently. He admits to intermittent diaphoresis today which occurred a couple of times. He states that this does not feel like what he felt when he had a saddle PE last year. However, he reports a similar episode of chest pain approximately 1 month ago for which he did not seek any medical attention. He denies any nausea, vomiting but admits to chest tightness and some intermittent shortness of breath which he is not currently experiencing. He has been on Eliquis since his saddle PE last year and he states he is taking all of his medications as prescribed. He also has a history of hypertension and nbe-dvljkfi-vwrqtyhwc diabetes. He is not taking anything for the pain today. Related Data Previous Rx's ?Medication ?Instructions ?Recorded apixaban 5 mg tablet (Eliquis) 5 mg PO BID #60 tabs losartan 100 mg tablet 100 mg PO DAILY blood pressu re 12/14/24 #100 tabs metformin 500 mg tablet,extended 1,000 mg (2 x 500 mg) PO DAILY 12/14/24 release 24 hr diabetes #60 tabs rosuvastatin 20 mg tablet 20 mg PO DAILY cholesterol # 100 12/14/24 tabs lidocaine 5 % topical patch 1 patch topical DAILY #30 ea 02/16/25 (Lidoderm) methocarbamol 500 mg tablet 500 mg PO TID PRN muscle s pasm #30 02/16/25 tabs amoxicillin 500 mg capsule 500 mg PO TID #21 caps 02/22 07/18 losartan 100 mg tablet 100 mg PO DAILY #90 tabs dcnfqjzo-dvsxajsbz-ffrxnexyq 3.5 3 drp EAR-RIGHT QID # 10 mL 03/21/25 mg-10,000 unit/mL-1 % ear drops,susp rosuvastatin 20 mg tablet 20 mg PO DAILY #90 tabs 02/22 07/18 Allergies Allergy/AdvReac Type Severity Reaction Status Date / Time No Known Drug Allergies Allergy Verified 05/02/25 14:18 Review of Systems Constitutional Constitutional: Reports body ache(s), Reports excessive sweating, Denies fatigue, Denies fever(s), Denies headache(s) and Denies night sweats Eyes Eyes: Denies change in vision, Denies loss of vision and Denies other visual disturbances ENT Ears, Nose, Mouth, and Throat: Denies dysphagia, Denies vertigo, Denies dizziness, Denies headache(s), Denies nasal congestion, Denies nasal discharge, Denies sinus pain and Denies sore throat Cardiovascular Cardiovascular: Reports chest pain, Reports chest pain at rest, Reports diaphoresis, Denies pedal edema, Denies edema, Denies leg edema, Denies lightheadedness, Denies radiating jaw, neck or arm pain, Reports dyspnea and Denies paroxysmal nocturnal dyspnea Respiratory Respiratory: Denies change in phlegm color, Reports cough, Denies hemoptysis, Denies excessive phlegm production, Denies pain with cough and Reports dyspnea Gastrointestinal Gastrointestinal: Reports abdominal pain, Denies dysphagia, Denies nausea and Denies vomiting Genitourinary Genitourinary: Denies dysuria Musculoskeletal Musculoskeletal: Reports myalgias Neurologic Neurologic: Denies confusion, Denies vertigo, Denies dizziness, Denies headache(s) and Denies loss of vision Psychiatric Psychiatric: Denies confusion Endocrine Endocrine: Reports excessive sweating and Denies fatigue Patient History Medical History Noncompliance with medication regimen Encounter for subsequent annual wellness visit (AWV) in Medicare patient History of blood clots (~04/2024) Acne (~1976) Anxiety (~2011) Shoulder pain (~2003) Fractures (~2003) Carpal tunnel syndrome (~2011) Mumps (~1966) Measles (~1963) Chicken pox (~1965) Ruptured tympanic membrane (~2006) DVT (deep venous thrombosis) Hyperlipidemia IFG (impaired fasting glucose) Hypertension (~2003) Surgical History Anesthesia History of appendectomy (~1965) S/P rotator cuff repair (~01/2003) Family History Father Cancer Diabetes mellitus Hyperlipidemia Hypertension Stroke Social History household members: significant other Smoking Status: Unknown if ever smoked alcohol intake: never Smoking Status: Unknown if ever smoked alcohol intake frequency: holidays/special occasions only Exam Narrative Exam Narrative: resting comfortably in the bed, sleeping when i entered Initial Vital Signs Initial Vital Signs: Vital Signs Temperature 97.8 F 05/02/25 14:06 Pulse Rate 92 H 05/02/25 14:06 Respiratory Rate 15 05/02/25 14:06 Blood Pressure 162/77 H 05/02/25 14:06 Pulse Oximetry 99 05/02/25 14:06 Oxygen Delivery Method Room Air 05/02/25 14:06 Const General: comfortable, No acute distress, No in distress, No anxious, No diaphoretic, No ill appearing, No intoxicated appearing and No lethargic Nutritional Appearance: obese Limitations: mental status not altered [facility] Head: normal to inspection, normocephalic and atraumatic Face and sinus: normal facial exam Eyes General: Yes appearance normal, both eyes and all related structures Neck Neck: No lymphadenopathy Chest Chest: normal inspection of the chest, normal palpation of entire chest wall and No tenderness Resp Effort & Inspection: normal respiratory effort, able to speak in complete sentences, normal respiratory pattern, no audible wheezes, no cough, no respiratory distress, no retractions, no stridor, not tachypneic and symmetric chest movement Auscultation: clear to auscultation bilaterally Cardio Rate: regular rate Rhythm: regular rhythm Heart Sounds: S1 normal, S2 normal, no click, no gallops, no murmurs and no rubs Bruits: no abdominal aortic bruits and no carotid bruits Pulses: brachial pulses present, radial pulses present, dorsalis pedis present and normal peripheral pulses GI Inspection: non-distended Palpation: soft and No tender Auscultation: normal bowel sounds General: No CVA tenderness Back/Spine/Pelvis Back: No back tenderness Cervical Spine: No cervical spinal tenderness Thoracic/Lumbar Spine: No thoracic spinal tenderness, No lumbar spinal tenderness and No straight leg raise positive Neuro Cranial Nerves: CN's II-XI intact bilaterally Course Course Course Narrative: Patient seen and examined by myself upon arrival in the ER. His EKG showed normal sinus rhythm without any distinct ST or T-wave changes consistent with ischemia. He does have a history of saddle pulmonary embolus and he also had chest pain radiating to his back today so CTA of the chest was done and was unremarkable. Troponin was negative x2 and the final troponin was done almost 12 hours after his symptoms began. Also reassuring is the fact that his symptoms have resolved on their own without intervention prior to discharge from the ER. Nevertheless, I advised the patient to return to the ER for any change or worsening in his condition especially if he experiences symptoms like he had this morning with 9 to 10/10 chest pain with diaphoresis and nausea. Otherwise, I advised him to follow up with his PCP as soon as possible. The patient is in agreement with this plan. White blood cell count was elevated and he did have a heart rate above 90 upon presentation. Therefore, I did do a sepsis workup but he had a negative procalcitonin, negative lactate, negative chest x-ray, negative respiratory viral panel. There was no clear source of his chest pain identified upon evaluation today, however critical causes of chest pain were ruled out in the ER. Orders Ordered: ED Orders 05/02/25 14:11 XR chest 1V Stat EKG-12 Lead Stat 05/02/25 14:18 Complete Blood Count AUTO DIFF Stat Comprehensive Metabolic Panel Stat Lactate (Lactic Acid) Stat Lipase Stat Magnesium Stat NT-proBNP (BNP-Adult 18+) Stat PTT Partial Thromboplastin Ivan Stat Procalcitonin Stat Prothrombin Time INR Stat Troponin & CK Cardiac Panel Stat 05/02/25 15:03 CT angio chest PE protocol Stat 05/02/25 15:20 Respiratory Panel (Film Array) Stat 05/02/25 16:49 Blood Culture Stat Troponin I Stat Discontinued Medications Aspirin (Aspirin 81 Mg Chew Tab) 324 mg PO NOW ONE Stop: 05/02/25 14:12 Vital Signs Vital signs: Vital Signs - 8 hr 05/02/25 14:06 05/02/25 14:18 05/02/25 14:29 Temperature 97.8 F Pulse Rate 92 H 87 Respiratory Rate 15 19 Blood Pressure 162/77 H 140/72 Pulse Oximetry 99 96 Oxygen Delivery Method Room Air 07/10/25 14:29 05/02/25 14:30 Temperature Pulse Rate 85 Respiratory Rate 18 Blood Pressure 142/71 H Pulse Oximetry 95 Oxygen Delivery Method MDM - Chest Pain Differential Diagnosis Differential diagnosis: Likely fracture of rib, pneumothorax, stable angina, unstable angina pectoris, atypical chest pain, st elevation myocardial infarction, costochondritis and chest pain Lab Data 05/02/25 14:18 05/02/25 14:18 Labs: Lab Results 05/02/25 05/02/25 05/02/25 Range/Units 14:18 15:20 16:49 WBC 15.8 H (4.5-11.0) X10^3/uL RBC 5.20 (4.5-5.9) X10^6/uL Hgb 15.0 (13.5-17.5) g/dL Hct 44.0 (41-53) % MCV 84.6 (80-100) fL MCH 28.8 (26-34) PG MCHC 34.0 (30-36) % RDW 13.4 (11.6-14.8) % Plt Count 250 (150-400) X10^3/uL Neut % (Auto) 80.2 H (50-75) % Lymph % (Auto) 13.0 L (25-40) % Mccormick % (Auto) 6.2 (3-14) % Eos % (Auto) 0.3 L (2-4) % Baso % (Auto) 0.3 (0-2) % Neut # (Auto) 73270 H (3647-2956) /uL Lymph # (Auto) 2000 (0505-9036) /uL Mccormick # (Auto) 1000 H (0-900) /uL Eos # (Auto) 100 (0-450) /uL Baso # (Auto) 100 (0-100) /uL PT 13.5 H (9.4-12.5) SECONDS INR 1.2 (0.9-1.3) APTT 36 (25.1-36.5) SECONDS Sodium 135 L (137-145) mmol/L Potassium 4.0 (3.4-5.1) mmol/L Chloride 100 (98-107) mmol/L Carbon Dioxide 27 (22-32) mmol/L BUN 14 (9-20) mg/dL Creatinine 0.74 (0.66-1.25) mg/dL Estimated GFR > 60 (>60) mL/min BUN/Creatinine Ratio 18.9 (6-22) Glucose 128 H (70-99) mg/dL Lactate 1.0 (0.7-2.1) mmol/L Calcium 9.1 (8.4-10.2) mg/dL Magnesium 1.8 (1.6-2.3) mg/dL Total Bilirubin 0.9 (0.2-1.3) mg/dL AST 31 (17-59) IU/L ALT 40 (<50) IU/L Alkaline Phosphatase 111 (38-126) U/L Total Creatine Kinase 97 (55-170) U/L Troponin I < 0.012 < 0.012 (0.01-0.034) ng/mL NT-Pro-B Natriuret Pep 20 (<125) pg/mL Total Protein 8.1 (6.3-8.2) g/dL Albumin 4.5 (3.5-5.0) g/dL Globulin 3.6 (1.7-4.1) g/dL Albumin/Globulin Ratio 1.3 (1.0-2.8) Lipase 41 (23-300) U/L Procalcitonin 0.072 (<0.5) ng/mL Chlamy pneumoniae PCR Not detected (Not Detect) Adenovirus (PCR) Not detected (Not Detect) B. pertussis DNA (PCR) Not detected (Not Detect) B.parapertussis DNA PCR Not detected (Not Detecte) Coronavirus OC43 (PCR) Not detected (Not Detect) Coronavirus HKU1 (PCR) Not detected (Not Detect) Coronavirus 229E (PCR) Not detected (Not Detect) SARS-CoV-2 (PCR) Not detected (Not Detecte) Coronavirus NL63 (PCR) Not detected (Not Detect) Human Metapneumovir PCR Not detected (Not Detect) Influenza Type A (PCR) Not detected (Not Detect) Influenza Type B (PCR) Not detected (Not Detect) M. pneumoniae (PCR) Not detected (Not Detect) Parainfluenza 1 (PCR) Not detected (Not Detect) Parainfluenza 2 (PCR) Not detected (Not Detect) Parainfluenza 3 (PCR) Not detected (Not Detect) Parainfluenza 4 (PCR) Not detected (Not Detect) RSV (PCR) Not detected (Not Detect) Entero/Rhino (PCR) Not detected (Not Detect) ECG Data Interpretation: LAD. NSR, rate 85. No ST/T-wave abnormalities MDM Narrative Medical decision making narrative: see above Discharge Plan Departure Patient Disposition: Home Clinical Impression: Chest pain Qualifiers: Chest pain type: unspecified Qualified Code(s): R07.9 - Chest pain, unspecified Instructions: DI for Atypical Chest Pain Prescriptions: No Action Eliquis 5 mg tablet 5 mg PO BID Qty: 60 11RF metformin 500 mg tablet extended release 24 hr 1,000 mg PO DAILY Qty: 60 11RF rosuvastatin 20 mg tablet 20 mg PO DAILY Qty: 100 3RF losartan 100 mg tablet 100 mg PO DAILY Qty: 100 3RF methocarbamol 500 mg tablet 500 mg PO TID PRN (Reason: muscle spasm) Qty: 30 0RF lidocaine [Lidoderm] 5 % adhesive patch,medicated 1 patch topical DAILY Qty: 30 0RF Rx Instructions: leave on most painful area for up to 12 hrs amoxicillin 500 mg capsule 500 mg PO TID Qty: 21 0RF igrswdtm-hvsfilaby-JN 3.5-10,000-1 mg/mL-unit/mL-% drops,suspension 3 drp EAR-RIGHT QID Qty: 10 0RF losartan 100 mg tablet 100 mg PO DAILY Qty: 90 0RF rosuvastatin 20 mg tablet 20 mg PO DAILY Qty: 90 0RF Referrals: Gavin Hagen DO [Primary Care Provider, Family Practice] - As soon as possible Stand Alone Forms: Patient Portal/API
[2025-05-02 15:25] LABS: Lactate (Lactic Acid) 1.0 mmol/L (0.7-2.1)
[2025-05-02 15:44] LABS: Procalcitonin 0.072 ng/mL (<0.5)
[2025-05-02 16:28] LABS: Coronavirus NL 63 Not Detected (Not Detect); SARS- CoV-2 Not Detected (Not Detecte)
[2025-05-02 17:18] LABS: Troponin I < 0.012 ng/mL (0.01-0.034)
[2025-05-02 17:44] VITALS: BP 141/79; PULSE 83; RESP 16; O2SAT 99
--- NOTE | 2025-05-03 14:24 | EKG_ITS ---
[place] [id number] [place] [id number] Test Date: 2025-05-02 Pat Name: Leland Travis Department: [facility] Room: Gender: Male Relief Driller: : 1960 Requested By: Order Number: [id number] Reading MD: Mandeep Judge MD Measurements Intervals [place] Rate: 85 P: 9 NH: 168 QRS: -44 QRSD: 108 T: 25 QT: 360 QTc: 428 Interpretive Statements Normal sinus rhythm Left axis deviation Pulmonary disease pattern Incomplete right bundle branch block Minimal voltage criteria for LVH, may be normal variant ( R in aVL ) Electronically Signed On 05-03-2025 16:35:16 PDT by Mandeep Judge MD
== END 2025-05-02 17:47 | disposition home or self-care (01) ==
PROVIDERS: Family Medicine; Emergency Provider Emergency Medicine; Family Provider Family Medicine; PCP Family Medicine
DX: R07.9 Chest pain, unspecified (principal); Z86.711 Personal history of pulmonary embolism
CPT/HCPCS: 36415; 71045; 71275; 80053; 82550; 83605; 83690; 83735; 83880; 84145; 84484; 85025; 85610; 85730; 87040; 87633; 93005; 93010; 99283; 99284; Q9967

== ENCOUNTER → 2025-05-20 14:42 | Outpatient (CLI) | payer MEDICARE, MEDICAID, SELFPAY ==
[2020-06-07 14:32] VITALS: BMI 29.5
--- NOTE | 2025-05-20 14:43 | DI.RAD.S_ITS ---
PROCEDURE: XR KNEE LT 3V INDICATIONS: pain TECHNIQUE: 3 views of the knee were acquired. COMPARISON: None. FINDINGS: Bones: No fractures or dislocations. Severe medial and moderate lateral tibiofemoral and moderate to severe patellofemoral compartment narrowing with associated osteophytosis. Varus angulation. No suspicious bony lesions. Soft tissues: No joint effusion. No suspicious soft tissue calcifications. IMPRESSION: KL grade 3 tricompartmental osteoarthritis without evidence of acute bony abnormality or significant effusion. Dictated by: Torres Brizuela M.D. on 05/20/2025 at 21:17 Approved by: Torres Brizuela M.D. on 05/20/2025 at 21:18
== END ==
PROVIDERS: Family Provider Family Medicine; PCP Family Medicine; Referring Provider Family Medicine; Visit Provider Family Medicine
DX: M17.12 Unilateral primary osteoarthritis, left knee (principal); M25.562 Pain in left knee; R07.9 Chest pain, unspecified; I10 Essential (primary) hypertension
CPT/HCPCS: 73562

== ENCOUNTER 2025-07-11 21:08 | Emergency (ER) | payer MEDICARE, MEDICAID, SELFPAY ==
[2020-06-07 14:32] VITALS: BMI 29.5
--- NOTE | 2025-07-11 21:12 | DI.RAD.S_ITS ---
PROCEDURE: XR CHEST 1V INDICATIONS: Chest Pain TECHNIQUE: One view of the chest was acquired. COMPARISON: [facility], CR, XR CHEST 1V, 05/02/2025, 14:18. FINDINGS: Surgical changes and devices: None. Lungs and pleura: Lungs are clear. No pleural effusions or pneumothorax. Mediastinum: Mediastinal contours appear normal. Heart size is normal. Bones and chest wall: No suspicious bony lesions. Overlying soft tissues appear unremarkable. IMPRESSION: No acute cardiopulmonary pathology. Dictated by: Kevin Morris M.D. on 07/11/2025 at 21:57 Approved by: Kevin Morris M.D. on 07/11/2025 at 21:57
[2025-07-11 21:13] VITALS: BP 155/72; PULSE 73; RESP 18; TEMP 36.6; O2SAT 96; BMI 31.4
--- NOTE | 2025-07-11 21:16 | EKG_ITS ---
[address] [address] Test Date: 2025-07-11 Pat Name: Leland Travis Department: Room: Gender: Male House Supervisor: MANJU : 1960 Requested By: Order Number: [id number] Reading MD: Mandeep Judge MD Measurements Intervals [place] Rate: 80 P: 12 NH: 164 QRS: -54 QRSD: 108 T: 28 QT: 378 QTc: 435 Interpretive Statements Sinus rhythm with premature atrial complexes Pulmonary disease pattern Left anterior fascicular block Electronically Signed On 07-12-2025 7:38:02 PDT by Mandeep Judge MD
[2025-07-11 21:34] LABS: Add Manual Diff / Slide Review NO; Hematocrit 43.3 % (41-53); Hemoglobin 14.8 g/dL (13.5-17.5); Lymphocytes Absolute Auto 3300 /uL (1100-4500); Mean Corpuscular HGB Conc 34.1 % (30-36); Mean Corpuscular Hemoglobin 28.9 PG (26-34); Mean Corpuscular Volume 84.8 fL (80-100); Platelet Count 280 X10^3/uL (150-400)
[2025-07-11 21:43] LABS: INR 1.1 (0.9-1.3); Prothrombin Time 12.0 SECONDS (9.4-12.5)
[2025-07-11 21:45] LABS: PTT Partial Thromboplastin Tim 33 SECONDS (25.1-36.5)
[2025-07-11 21:47] LABS: Alanine Aminotransferase 44 IU/L (<50); Albumin 4.3 g/dL (3.5-5.0); Albumin Globulin Ratio 1.4 (1.0-2.8); Alkaline Phosphatase 99 U/L (38-126); Blood Urea Nitrogen 20 mg/dL (9-20); Calcium 8.9 mg/dL (8.4-10.2); Carbon Dioxide 31 mmol/L (22-32); Chloride 100 mmol/L (98-107); Creatine Kinase 76 U/L (55-170); Estimated Glomerular Filt Rate > 60 mL/min (>60); Globulin 3.1 g/dL (1.7-4.1); Glucose 125 mg/dL (70-99); HEMOLYSIS 16 (0-50); Lipase 53 U/L (23-300); Magnesium 1.7 mg/dL (1.6-2.3); Potassium 3.9 mmol/L (3.4-5.1); Sodium 136 mmol/L (137-145); Total Protein 7.4 g/dL (6.3-8.2)
[2025-07-11 21:58] LABS: NT-proBNP (BNP-Adult 18+) < 20 pg/mL (<125); Troponin I < 0.012 ng/mL (0.01-0.034)
--- NOTE | 2025-07-11 22:16 | DI.CT.S_ITS ---
PROCEDURE: CT ANGIO CHEST PE PROTOCOL INDICATIONS: increased chest pain/sob with hx of PE TECHNIQUE: After the administration of intravenous contrast, 2 mm thick sections acquired from the pulmonary apices to the posterior costophrenic angles. 3-dimensional maximum intensity projection (MIP) coronal and sagittal reformats were then acquired through the thorax. For radiation dose reduction, the following was used: automated exposure control, adjustment of mA and/or kV according to patient size. COMPARISON: [facility], CT, CT ANGIO CHEST PE PROTOCOL, 05/02/2025, 15:10. FINDINGS: Image quality: Diagnostic. Pulmonary arteries: Pulmonary arteries are normal in size, and demonstrate no intraluminal filling defects to suggest central pulmonary embolism. Lower Neck: No enlarged lymph nodes. Thyroid: No thyroid nodules which require sonographic follow up, per consensus guidelines. Axillae: No enlarged lymph nodes. Chest Wall: Unremarkable. Bones: Unremarkable. Lungs and Pleura: No pneumothorax or pleural effusions. Subtle hazy ground- glass opacities are noted in posterior aspect of bilateral lung jon. No consolidation or suspicious nodules. Heart: Heart size is mildly enlarged. No pericardial effusion. Thoracic Vessels: No aortic aneurysm. 2 vessel coronary artery atherosclerotic calcifications are seen. Mediastinum and Tish: No enlarged lymph nodes. Esophagus: No wall thickening. Small hiatal hernia. Upper Abdomen: Visualized upper abdomen solid organs and bowel loops appear normal. IMPRESSION: 1. No pulmonary embolus. No thoracic aortic aneurysm or gross dissection. 2. Mild cardiomegaly, no pericardial effusion. No mediastinal or hilar lymphadenopathy. 3. Dependent atelectasis in posterior aspect of bilateral lung jon. Mild hazy ground-glass opacities also seen in posterior bilateral lung jon suggestive of mild pulmonary edema versus pneumonitis. No pleural effusion or pneumothorax. Dictated by: Kevin Morris M.D. on 07/11/2025 at 22:55 Approved by: Kevin Morris M.D. on 07/11/2025 at 23:00
[2025-07-11 23:18] VITALS: BP 125/62; PULSE 75; O2SAT 93
[2025-07-11 23:30] VITALS: BP 134/64; PULSE 70; RESP 15; O2SAT 91
--- NOTE | 2025-07-11 23:52 | ED.CHESTPAIN ---
HPI - Chest Pain General Chief Complaint: Chest Pain Stated Complaint: chest pain today previous blood clot Time Seen by Provider: 07/11/25 23:51 Source: patient Mode of arrival: Ambulatory Limitations: no limitations History of Present Illness HPI narrative: 65-year-old male with history of saddle pulmonary embolus, taking oral Eliquis anticoagulation, complains of substernal chest discomfort. Denies fevers chills coughs. Denies trauma injury or new activities. Denies pain or swelling to arms or legs. Denies missed doses of at blood thinner medication. Also denies previous known coronary artery disease. Denies painful or frequent urination. Denies nausea vomiting diarrhea. No black stools or red stools. MD complaint: chest pain Related Data Previous Rx's ?Medication ?Instructions ?Recorded apixaban 5 mg tablet (Eliquis) 5 mg PO BID #60 tabs 11/07/24 metformin 500 mg tablet,extended 1,000 mg (2 x 500 mg) PO DAILY 12/14/24 release 24 hr diabetes #60 tabs methocarbamol 500 mg tablet 500 mg PO TID PRN muscle spasm #30 02/16/25 tabs losartan 100 mg tablet 100 mg PO DAILY #90 tabs 03/21/25 rosuvastatin 20 mg tablet 20 mg PO DAILY #90 tabs 03/21/25 alcohol swabs (Alcohol Wipes) 1 pad topical DAILY PRN to test 05/20/25 blood glucose once daily #100 ea blood sugar diagnostic (Blood #100 ea 05/20/25 Glucose Test strips) blood-glucose meter #1 ea 05/20/25 empty container (Sharps Container) #1 ea 05/20/25 lancets 28 gauge #100 ea 05/20/25 amoxicillin 875 mg tablet 875 mg PO BID dental infection 10 07/12/25 days #20 tabs doxycycline hyclate 100 mg tablet 100 mg PO BID #20 tabs 07/12/25 Allergies Allergy/AdvReac Type Severity Reaction Status Date / Time No Known Drug Allergies Allergy Verified 07/02/25 15:11 Patient History Medical History (Updated 07/12/25 @ 00:48 by Meir Buchanan MD) Primary osteoarthritis of left knee Noncompliance with medication regimen Encounter for subsequent annual wellness visit (AWV) in Medicare patient History of blood clots (~04/2024) Acne (~1976) Anxiety (~2011) Shoulder pain (~2003) Fractures (~2003) Carpal tunnel syndrome (~2011) Mumps (~1966) Measles (~1963) Chicken pox (~1965) Ruptured tympanic membrane (~2006) DVT (deep venous thrombosis) Hyperlipidemia IFG (impaired fasting glucose) Hypertension (~2003) Surgical History Anesthesia History of appendectomy (~1965) S/P rotator cuff repair (~01/2003) Family History Father Cancer Diabetes mellitus Hyperlipidemia Hypertension Stroke Social History household members: significant other Smoking Status: Never smoker alcohol intake: never Smoking Status: Never smoker alcohol intake frequency: holidays/special occasions only Exam Narrative Exam Narrative: GENERAL: Well-developed patient, in mild distress. HEAD: Atraumatic. Normocephalic. EYES: Pupils equal round and reactive. Extraocular motions intact. No scleral icterus. No injection or drainage. ENT: Nose without bleeding, purulent drainage. Throat without erythema, tonsillar hypertrophy or exudate. Airway patent. NECK: Trachea midline. Non tender CARDIOVASCULAR: Regular rate and rhythm without murmurs, gallops, or rubs. RESPIRATORY: Clear to auscultation. Breath sounds equal bilaterally. No wheezes, rales, or rhonchi. GASTROINTESTINAL: Abdomen soft, non-tender, nondistended. EXTREMITIES: No edema or joint tenderness. BACK: Nontender without deformity or crepitance. No flank tenderness. NEURO: AOx3. Motor functions grossly nonfocal. SKIN: No rash or erythema of visible areas Initial Vital Signs Initial Vital Signs: Vital Signs Temperature 98 F 07/11/25 21:13 Pulse Rate 73 07/11/25 21:13 Respiratory Rate 18 07/11/25 21:13 Blood Pressure 155/72 H 07/11/25 21:13 Pulse Oximetry 96 07/11/25 21:13 Oxygen Delivery Method Room Air 07/11/25 21:13 Course Orders Ordered: ED Orders 07/11/25 21:12 XR chest 1V Stat EKG-12 Lead Stat 07/11/25 21:25 Complete Blood Count AUTO DIFF Stat Comprehensive Metabolic Panel Stat Lipase Stat Magnesium Stat NT-proBNP (BNP-Adult 18+) Stat PTT Partial Thromboplastin Ivan Stat Prothrombin Time INR Stat Troponin & CK Cardiac Panel Stat 07/11/25 22:16 CT angio chest PE protocol Stat 07/11/25 23:33 Troponin I Stat Discontinued Medications Albuterol (Albuterol Hfa Prepack) 1 box MISC DIRECTED ONE Stop: 07/12/25 00:43 Last Admin: 07/12/25 00:56 Dose: 1 box Documented By: Amoxicillin (Amoxicillin 250 Mg Capsule) 1,000 mg PO NOW ONE Stop: 07/12/25 00:46 Last Admin: 07/12/25 01:00 Dose: 1,000 mg Documented By: DI Amoxicillin (Amoxicillin 250 Mg Capsule) 1,000 mg PO NOW ONE Stop: 07/12/25 01:01 Last Admin: 07/12/25 01:07 Dose: Not Given Documented By: DI Aspirin (Aspirin 81 Mg Chew Tab) 324 mg PO NOW ONE Stop: 07/11/25 21:13 Last Admin: 07/12/25 01:07 Dose: Not Given Documented By: DI Doxycycline Hyclate (Doxycycline Hyclate 100 Mg Tablet) 100 mg PO NOW ONE Stop: 07/12/25 00:41 Last Admin: 07/12/25 01:00 Dose: 100 mg Documented By: DI Vital Signs Vital signs: Vital Signs - 8 hr 07/11/25 21:13 07/11/25 23:18 07/11/25 23:18 Temperature 98 F Pulse Rate 73 75 Respiratory Rate 18 Blood Pressure 155/72 H 125/62 Pulse Oximetry 96 93 Oxygen Delivery Method Room Air Room Air 07/11/25 23:30 07/11/25 23:30 07/12/25 00:00 Temperature Pulse Rate 70 Respiratory Rate 15 Blood Pressure 134/64 117/63 Pulse Oximetry 91 Oxygen Delivery Method 07/12/25 00:00 07/12/25 00:30 07/12/25 00:30 Temperature Pulse Rate 67 77 Respiratory Rate 12 22 Blood Pressure 116/69 Pulse Oximetry 92 94 Oxygen Delivery Method 07/12/25 01:00 07/12/25 01:00 Temperature Pulse Rate 67 Respiratory Rate 13 Blood Pressure 127/71 Pulse Oximetry 94 Oxygen Delivery Method MDM - Chest Pain Lab Data Attestation: I reviewed the patient's lab results. Lab results narrative: White blood cell count 96306, hemoglobin 14.8, platelets adequate. Glucose 125. Normal renal function, serum CO2, potassium. Sodium 136 slight low. Alkaline phosphatase and lipase normal. Troponin negative/unmeasurable x2 interval studies. 07/11/25 21:25 07/11/25 21:25 Labs: Lab Results 07/11/25 07/11/25 Range/Units 21:25 23:33 WBC 11.0 (4.5-11.0) X10^3/uL RBC 5.11 (4.5-5.9) X10^6/uL Hgb 14.8 (13.5-17.5) g/dL Hct 43.3 (41-53) % MCV 84.8 (80-100) fL MCH 28.9 (26-34) PG MCHC 34.1 (30-36) % RDW 14.1 (11.6-14.8) % Plt Count 280 (150-400) X10^3/uL Neut % (Auto) 62.1 (50-75) % Lymph % (Auto) 29.8 (25-40) % [place] % (Auto) 6.6 (3-14) % Eos % (Auto) 0.7 L (2-4) % Baso % (Auto) 0.8 (0-2) % Neut # (Auto) 6800 (6604-4199) /uL Lymph # (Auto) 3300 (9139-7281) /uL [place] # (Auto) 700 (0-900) /uL Eos # (Auto) 100 (0-450) /uL Baso # (Auto) 100 (0-100) /uL PT 12.0 (9.4-12.5) SECONDS INR 1.1 (0.9-1.3) APTT 33 (25.1-36.5) SECONDS Sodium 136 L (137-145) mmol/L Potassium 3.9 (3.4-5.1) mmol/L Chloride 100 (98-107) mmol/L Carbon Dioxide 31 (22-32) mmol/L BUN 20 (9-20) mg/dL Creatinine 0.76 (0.66-1.25) mg/dL Estimated GFR > 60 (>60) mL/min BUN/Creatinine Ratio 26.3 H (6-22) Glucose 125 H (70-99) mg/dL Calcium 8.9 (8.4-10.2) mg/dL Magnesium 1.7 (1.6-2.3) mg/dL Total Bilirubin 0.8 (0.2-1.3) mg/dL AST 28 (17-59) IU/L ALT 44 (<50) IU/L Alkaline Phosphatase 99 (38-126) U/L Total Creatine Kinase 76 (55-170) U/L Troponin I < 0.012 < 0.012 (0.01-0.034) ng/mL NT-Pro-B Natriuret Pep < 20 (<125) pg/mL Total Protein 7.4 (6.3-8.2) g/dL Albumin 4.3 (3.5-5.0) g/dL Globulin 3.1 (1.7-4.1) g/dL Albumin/Globulin Ratio 1.4 (1.0-2.8) Lipase 53 (23-300) U/L Imaging Data Chest x-ray: Radiologist's Impression: [address] [address] XRay Report Signed Patient: Leland Travis MR#: [id number] : 1960 Acct:[id number] Age/Sex: 65 / M Date of Service: 07/11/25 Loc: ED Accession Number: [id number] Procedure: XR chest 1V Ordering Provider: Meir Buchanan MD PROCEDURE: XR CHEST 1V INDICATIONS: Chest Pain TECHNIQUE: One view of the chest was acquired. COMPARISON: [facility], , XR CHEST 1V, 05/02/2025, 14:18. FINDINGS: Surgical changes and devices: None. Lungs and pleura: Lungs are clear. No pleural effusions or pneumothorax. Mediastinum: Mediastinal contours appear normal. Heart size is normal. Bones and chest wall: No suspicious bony lesions. Overlying soft tissues appear unremarkable. IMPRESSION: No acute cardiopulmonary pathology. Dictated by: Kevin Morris M.D. on 07/11/2025 at 21:57 Approved by: Kevin Morris M.D. on 07/11/2025 at 21:57 CTA chest: Radiologist's Impression: [address] [address] [address] Scan Report Signed Patient: Leland Travis MR#: [id number] : 1960 Acct:[id number] Age/Sex: 65 / M Date of Service: 07/11/25 Loc: ED Accession Number: [id number] Procedure: CT angio chest PE protocol Ordering Provider: Meir Buchanan MD PROCEDURE: CT ANGIO CHEST PE PROTOCOL INDICATIONS: increased chest pain/sob with hx of PE TECHNIQUE: After the administration of intravenous contrast, 2 mm thick sections acquired from the pulmonary apices to the posterior costophrenic angles. 3-dimensional maximum intensity projection (MIP) coronal and sagittal reformats were then acquired through the thorax. For radiation dose reduction, the following was used: automated exposure control, adjustment of mA and/or kV according to patient size. COMPARISON: [facility], CT, CT ANGIO CHEST PE PROTOCOL, 05/02/2025, 15:10. FINDINGS: Image quality: Diagnostic. Pulmonary arteries: Pulmonary arteries are normal in size, and demonstrate no intraluminal filling defects to suggest central pulmonary embolism. Lower Neck: No enlarged lymph nodes. Thyroid: No thyroid nodules which require sonographic follow up, per consensus guidelines. Axillae: No enlarged lymph nodes. Chest Wall: Unremarkable. Bones: Unremarkable. Lungs and Pleura: No pneumothorax or pleural effusions. Subtle hazy ground-glass opacities are noted in posterior aspect of bilateral lung jon. No consolidation or suspicious nodules. Heart: Heart size is mildly enlarged. No pericardial effusion. Thoracic Vessels: No aortic aneurysm. 2 vessel coronary artery atherosclerotic calcifications are seen. Mediastinum and Tish: No enlarged lymph nodes. Esophagus: No wall thickening. Small hiatal hernia. Upper Abdomen: Visualized upper abdomen solid organs and bowel loops appear normal. IMPRESSION: 1. No pulmonary embolus. No thoracic aortic aneurysm or gross dissection. 2. Mild cardiomegaly, no pericardial effusion. No mediastinal or hilar lymphadenopathy. 3. Dependent atelectasis in posterior aspect of bilateral lung jon. Mild hazy ground-glass opacities also seen in posterior bilateral lung jon suggestive of mild pulmonary edema versus pneumonitis. No pleural effusion or pneumothorax. Dictated by: Kevin Morris M.D. on 07/11/2025 at 22:55 Approved by: Kevin Morris M.D. on 07/11/2025 at 23:00 ECG Data Attestation: I personally reviewed and interpreted this ECG as follows: Interpretation: 2116, normal sinus rhythm with premature atrial complexes, ventricular rate 80, left anterior fascicular block changes. TX 164, QRS 108, QTC 435. MDM Narrative Medical decision making narrative: 65-year-old male with history of saddle embolus, taking Eliquis anticoagulation, complains of midepigastric pain since yesterday afternoon. No syncope or presyncope symptoms. No leg pain or swelling symptoms. No fevers or chills. EKG, chest x-ray, labs pending. EKG shows sinus rhythm, no acute changes. Chest x-ray no acute changes. See radiology report. Lab data: White blood cell count 56778, hemoglobin 14.8, platelets adequate. Glucose 125. Normal renal function, serum CO2, potassium. Sodium 136 slight low. Alkaline phosphatase and lipase normal. Troponin negative/unmeasurable x2 interval studies. CTA chest shows no pulmonary embolus, lower lobe atelectasis versus infiltrate. See radiology report. Oral doxycycline, prescription sent for further course to pharmacy, along with oral amoxicillin, for treatment of possible community-acquired pneumonia. Discharge Plan Departure Patient Disposition: Home Clinical Impression: Chest pain, Pneumonia Activity Restrictions/Additional Instructions: History of blood clots to the lungs, taking blood thinner Eliquis medication. Chest discomfort. No fever on triage, normal oxygen level on triage. Lungs clear on exam. Chest x-ray without obvious acute changes. EKG and blood tests not suggestive of heart attack at this time. CT angiogram chest showed no blood clots to the logs at this time, but did show lower lobe lung infection pneumonia like changes, versus localized collapse of the lung that might be treatable with inhaler. Trial of inhaler with spacer. Oral antibiotics with the amoxicillin and doxycycline initiated, prescription sent to your pharmacy. Take antibiotics as directed. Recheck lung exam with your regular doctor later this week. Return to this/nearest emergency department for any change worsening symptoms or any concerns prior. Prescriptions: New amoxicillin 875 mg tablet 875 mg PO BID 10 Days Qty: 20 0RF doxycycline hyclate 100 mg tablet 100 mg PO BID Qty: 20 0RF No Action Eliquis 5 mg tablet 5 mg PO BID Qty: 60 11RF metformin 500 mg tablet extended release 24 hr 1,000 mg PO DAILY Qty: 60 11RF (DME) Blood Glucose Test Strip See Rx Instructions .ROUTE .MEDSUPPLY Qty: 100 3RF Rx Instructions: to test blood glucose once daily (DME) blood-glucose meter Kit See Rx Instructions .ROUTE .MEDSUPPLY Qty: 1 0RF Rx Instructions: to test blood glucose once daily alcohol swabs [Alcohol Wipes] Pads, Medicated 1 pad topical DAILY PRN (Reason: to test blood glucose once daily) Qty: 100 3RF (DME) lancets 28 gauge misc See Rx Instructions .ROUTE .MEDSUPPLY Qty: 100 3RF Rx Instructions: to test blood glucose once daily (DME) Sharps Container Misc See Rx Instructions .ROUTE .MEDSUPPLY Qty: 1 0RF Rx Instructions: As directed to dispose of sharps safely methocarbamol 500 mg tablet 500 mg PO TID PRN (Reason: muscle spasm) Qty: 30 0RF losartan 100 mg tablet 100 mg PO DAILY Qty: 90 0RF rosuvastatin 20 mg tablet 20 mg PO DAILY Qty: 90 0RF Referrals: Gavin Hagen DO [Primary Care Provider, Family Practice] Stand Alone Forms: Patient Portal/API
[2025-07-12] VITALS: BP 117/63; PULSE 67; RESP 12; O2SAT 92
[2025-07-12 00:06] LABS: Troponin I < 0.012 ng/mL (0.01-0.034)
[2025-07-12 00:30] VITALS: BP 116/69; PULSE 77; RESP 22; O2SAT 94
[2025-07-12] MEDS: ALBUTEROL HFA PREPACK 1 BOX MISC (00:56)
[2025-07-12 01:00] VITALS: BP 127/71; PULSE 67; RESP 13; O2SAT 94
[2025-07-12] MEDS: AMOXICILLIN 250 MG CAPSULE 1000 MG PO (01:00)
[2025-07-12] MEDS: DOXYCYCLINE HYCLATE 100 MG TABLET PO (01:00)
== END 2025-07-12 01:09 | disposition home or self-care (01) ==
PROVIDERS: Emergency Provider Emergency Medicine; Family Provider Family Medicine; PCP Family Medicine
DX: R07.9 Chest pain, unspecified (principal); J18.9 Pneumonia, unspecified organism; Z79.01 Long term (current) use of anticoagulants; Z86.711 Personal history of pulmonary embolism
CPT/HCPCS: 36415; 71045; 71275; 80053; 82550; 83690; 83735; 83880; 84484; 85025; 85610; 85730; 93005; 99284; Q9967

== ENCOUNTER 2025-07-16 17:00 | Outpatient (RCR) | payer MEDICARE, MEDICAID, SELFPAY ==
[2020-06-07 14:32] VITALS: BMI 29.5
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
--- NOTE | 2025-05-15 13:34 | PT-OP ANOTE ---
Phoned patient, made patient aware of no show policy, also left front end developer designer phone number and date and time of next appointment.
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
--- NOTE | 2025-06-18 11:07 | PT-OP ANOTE ---
Pt did not show for his 06/18/25 appointment. Therapist phoned and left a voicemail regarding missed appointment, reminded pt of next upcoming appointment.
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
--- NOTE | 2025-07-02 17:22 | PT-OP ANOTE ---
Pt did not show to his 07/02/25 appointment. Therapist spoke with him on the phone, he was very apologetic, noted he has a lot going on right now, and just slipped his mind. Reminded of his upcoming visit on 07/04 at 5pm
--- NOTE | 2025-07-04 17:22 | PT-OP ANOTE ---
Attempted to phone patient regarding no show. Unable to leave message, voice mailbox full.
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
== END 2025-09-18 09:54 | disposition home or self-care (01) ==
LOC: PHYS 17:00
PROVIDERS: Family Provider Family Medicine; PCP Family Medicine; Referring Provider Physician Assistant; Visit Provider Physician Assistant
DX: S49.92XD Unspecified injury of left shoulder and upper arm, subsequent encounter (principal); S39.012D Strain of muscle, fascia and tendon of lower back, subsequent encounter; V89.2XXD Person injured in unspecified motor-vehicle accident, traffic, subsequent encounter; M16.12 Unilateral primary osteoarthritis, left hip
CPT/HCPCS: 97014; 97110; 97140; 97163; G0283